=== PATIENT | male | born 1965 | race Hispanic/Latino ===

== ENCOUNTER 2018-02-09 16:53 | Emergency (ER) | payer OTHER ==
[2018-02-09] MEDS ORDERED: MECLIZINE HCL 12.5 MG TAB ONE (17:32)
[2018-02-09] MEDS ORDERED: ONDANSETRON 4 MG/2 ML VIAL ONE (17:32)
[2018-02-09 17:47] LABS: Absolute Lymphocytes (CBC) 1.6 K/uL (0.7-4.9); Absolute Monocytes 0.5 K/uL (0.1-1.3); Absolute Neutrophil 4.1 K/uL (1.8-8.0); Basophils % 0.4 % (0-1.3); Hematocrit 45.2 % (39.6-49.0); Lymphocytes % 24.8 % (15.3-44.8); MCH 32.6 pg (27.0-35.0); MCV 92.1 fL (80-100); MPV 10.3 fL (7.6-11.3); Monocytes % 7.4 % (3.3-12.3); RBC Red Blood Cell Count 4.91 M/uL (4.33-5.43)
[2018-02-09 17:50] LABS: Protime INR 0.95
--- NOTE | 2018-02-09 18:08 | RAD REPORT ---
EXAM DESCRIPTION: CT - Head Brain Wo Cont - 02/09/2018 5:57 pm CLINICAL HISTORY: dizziness,nausea Drowsiness COMPARISON: No comparisons TECHNIQUE: All CT scans are performed using dose optimization technique as appropriate and may inclu de automated exposure control or mA/KV adjustment according to patient size. FINDINGS: No intracranial hemorrhage, hydrocephalus or extra-axial fluid collection.No areas of brai n edema or evidence of midline shift. The paranasal sinuses and mastoids are clear. The calvarium is intact. IMPRESSION: No acute intracranial abnormality.
[2018-02-09 18:18] LABS: ALT/SGPT 38 U/L (12-78); AST/SGOT 29 U/L (15-37); Alkaline Phosphatase 93 U/L (45-117); BUN Blood Urea Nitrogen 14 mg/dL (7-18); Bicarbonate 24 mmol/L (21-32); Bilirubin Direct < 0.1 mg/dL (0-0.2); Bilirubin Total 0.3 mg/dL (0.2-1.0); Glucose Level 139 mg/dL (74-106); NT PRO-BNP 8 pg/mL (<125); Protein, Total 7.2 g/dL (6.4-8.2); Sodium Level 138 mmol/L (136-145); Troponin I < 0.02 ng/mL (0.0-0.045)
--- NOTE | 2018-02-09 19:01 | RAD REPORT ---
EXAM DESCRIPTION: RAD - Chest Single View - 02/09/2018 6:55 pm CLINICAL HISTORY: dizziness, nausea Chest pain. COMPARISON: No comparisons FINDINGS: Portable technique limits examination quality. The lungs are grossly clear. The heart is normal in size. No displaced fractures. IMPRESSION: No acute intrathoracic process suspected.
[2018-02-09] MEDS ORDERED: HYDROMORPHONE HCL 0.5 MG/0.5 ML INJ ONE (19:46)
[2018-02-09] MEDS ORDERED: MAGNESIUM SULFATE 1 gm IVPB 1 GM/100 ML BAG IV ONE (19:46)
[2018-02-09 20:29] LABS: Urine Blood TRACE (NEG); Urine Glucose NEGATIVE (NEG); Urine Protein NEGATIVE (NEG); Urine Specific Gravity 1.015 (1.005-1.030)
--- NOTE | 2018-02-09 20:44 | EDPHYS ---
Physician Documentation [facility] Name: Wyatt Sepulveda Age: 52 yrs Sex: Male : 1965 Arrival Date: 02/09/2018 Time: 17:00 Bed 14 Private MD: ED Physician Tracy Arceo HPI: 02/09 17:20 This 52 yrs old Male presents to ER via Ambulatory with complaints of cp Dizziness, Nausea. 17:20 The patient presents with dizziness, lightheadedness, feeling off balance. Onset: The cp symptoms/episode began/occurred 1 hour(s) ago. Associated signs and symptoms: Pertinent positives: headache, nausea, Pertinent negatives: abdominal pain, blurred vision, chest pain, focal weakness, numbness, shortness of breath, syncope, vomiting. Severity of symptoms: in the emergency department the symptoms are unchanged despite home interventions. Patient's baseline: Neuro: alert and fully oriented, Motor: no deficits, Ambulation: walks without assistance, Speech: normal. Historical: - Allergies: 17:04 No Known Allergies; aj1 - Home Meds: 17:04 blood pressure medicine [Active]; aj1 - PMHx: 17:04 Hypertension; aj1 - PSHx: 17:04 None; aj1 - Immunization history:: Flu vaccine is up to date. - Social history:: Smoking status: Patient/guardian denies using tobacco. - Ebola Screening: : Patient denies travel to an Ebola-affected area in the 21 days before illness onset. ROS: 17:22 Eyes: Negative for injury, pain, redness, and discharge. cp 17:22 Constitutional: Negative for body aches, chills, fever, poor PO intake. 17:22 ENT: Negative for drainage from ear(s), ear pain, sore throat, difficulty swallowing, difficulty handling secretions. 17:22 Cardiovascular: Negative for chest pain, edema, palpitations. 17:22 Respiratory: Negative for cough, shortness of breath, wheezing. 17:22 Abdomen/GI: Positive for nausea, Negative for abdominal pain, vomiting, diarrhea, constipation, anorexia, black/tarry stool, rectal bleeding. 17:22 Back: Negative for pain at rest, pain with movement, radiated pain. 17:22 : Negative for urinary symptoms. 17:22 Skin: Negative for cellulitis, rash. 17:22 Neuro: Positive for dizziness, headache, Negative for altered mental status, loss of consciousness, syncope, near syncope, weakness. 17:22 All other systems are negative. Exam: 17:25 Constitutional: The patient appears in no acute distress, alert, awake, cp non-diaphoretic, non-toxic, well developed, well nourished. 17:25 Head/Face: Normocephalic, atraumatic. Eyes: Pupils equal round and reactive to light, cp extra-ocular motions intact. Lids and lashes normal. Conjunctiva and sclera are non-icteric and not injected. Cornea within normal limits. Periorbital areas with no swelling, redness, or edema. ENT: Nares patent. No nasal discharge, no septal abnormalities noted. Tympanic membranes are normal and external auditory canals are clear. Oropharynx with no redness, swelling, or masses, exudates, or evidence of obstruction, uvula midline. Mucous membranes moist. Neck: Trachea midline, no thyromegaly or masses palpated, and no cervical lymphadenopathy. Supple, full range of motion without nuchal rigidity, or vertebral point tenderness. No Meningismus. Chest/axilla: Normal chest wall appearance and motion. Nontender with no deformity. No lesions are appreciated. 17:25 Cardiovascular: Rate: normal, Rhythm: regular, Heart sounds: murmur, not appreciated, Edema: is not appreciated, JVD: is not appreciated. 17:25 Respiratory: the patient does not display signs of respiratory distress, Respirations: normal, no use of accessory muscles, no retractions, no splinting, no tachypnea, labored breathing, is not present, Breath sounds: are clear throughout, no decreased breath sounds, no stridor, no wheezing. 17:25 Abdomen/GI: Inspection: abdomen appears normal, Bowel sounds: active, all quadrants, Palpation: abdomen is soft and non-tender, in all quadrants, rebound tenderness, is not appreciated, voluntary guarding, is not appreciated, involuntary guarding, is not appreciated. 17:25 Back: pain, is absent, ROM is normal. 17:25 Skin: cellulitis, is not appreciated, no rash present. 17:25 Neuro: Orientation: to person, place \T\ time. Mentation: is normal, Cerebellar function: is grossly normal, Motor: moves all fours, strength is normal, Sensation: is normal. 17:45 ECG was reviewed by the Attending Physician. cp Vital Signs: 17:04 BP 140 / 95; Pulse 80; Resp 18; Temp 97.7; Pulse Ox 98% on R/A; Weight 108.86 kg (R); aj1 Height 5 ft. 8 in. (172.72 cm) (R); Pain 0/10; 17:12 BP 142 / 82 LA Supine; Pulse 77; Resp 18; Pulse Ox 97% on R/A; hj 17:12 BP 132 / 89 Sitting; Pulse 72; Resp 18; Pulse Ox 98% on R/A; hj 17:12 BP 128 / 89 Standing; Pulse 81; Resp 18; Pulse Ox 99% on R/A; hj 18:06 BP 136 / 84; Pulse 74; Resp 18; Pulse Ox 100% on R/A; hj 18:49 BP 128 / 87; Pulse 67; Resp 18; Pulse Ox 100% on R/A; hj 19:20 BP 128 / 85; Pulse 71; Resp 18 S; Pulse Ox 97% on R/A; cc3 20:45 BP 131 / 96; Pulse 74; Resp 18 S; Pulse Ox 98% on R/A; cc3 17:04 Body Mass Index 36.49 (108.86 kg, 172.72 cm) aj1 MDM: 17:10 Patient medically screened. cp 17:30 Differential diagnosis: cardiac arrhythmia, generalized weakness, hypovolemia, cp idiopathic dizziness, vertigo. 20:42 Data reviewed: vital signs, nurses notes, lab test result(s), EKG, radiologic studies, cp CT scan, plain films. 20:42 Test interpretation: by ED physician or midlevel provider: ECG, plain radiologic cp studies. Counseling: I had a detailed discussion with the patient and/or guardian regarding: the historical points, exam findings, and any diagnostic results supporting the discharge/admit diagnosis, lab results, radiology results, to return to the emergency department if symptoms worsen or persist or if there are any questions or concerns that arise at home. Response to treatment: the patient's symptoms have markedly improved after treatment. ED course: VSS. Patient reports symptoms markedly improved. Will discharge to home for continued monitoring. 02/09 17:41 Order name: Basic Metabolic Panel; Complete Time: 19:06 EDMS 02/09 19:07 Interpretation: Normal except: GLUC 139; GFR 78; CA 8.1. 02/09 17:41 Order name: Liver (Hepatic) Function; Complete Time: 19:06 EDMS 02/09 19:27 Interpretation: Reviewed. 02/09 17:41 Order name: Troponin I; Complete Time: 19:06 EDMS 02/09 19:06 Interpretation: Within normal limits: TROP < 0.02. 02/09 17:41 Order name: NT PRO-BNP; Complete Time: 19:06 EDMS 02/09 19:27 Interpretation: Within normal limits: NT PRO-BNP 8. cp 02/09 17:41 Order name: Magnesium; Complete Time: 19:06 EDMS 02/09 19:28 Interpretation: MG 2.0; Reviewed. 02/09 17:41 Order name: CBC with Automated Diff; Complete Time: 19:06 EDMS 02/09 19:06 Interpretation: Reviewed. 02/09 17:41 Order name: Protime (+INR); Complete Time: 19:06 EDMS 02/09 17:20 Order name: Orthostatics; Complete Time: 17:21 02/09 17:20 Order name: EKG; Complete Time: 18:16 02/09 17:20 Order name: Cardiac monitoring; Complete Time: 17:21 02/09 17:20 Order name: EKG - Nurse/Tech; Complete Time: 17:32 02/09 17:20 Order name: IV Saline Lock; Complete Time: 17:32 02/09 17:20 Order name: Labs collected and sent; Complete Time: 17:32 02/09 17:20 Order name: O2 Per Protocol; Complete Time: 17:21 02/09 17:20 Order name: CT Head Brain wo Cont 02/09 17:41 Order name: Head Brain Wo Cont; Complete Time: 19:06 EDMS 02/09 19:07 Interpretation: Report reviewed. 02/09 17:41 Order name: Chest Single View; Complete Time: 19:06 EDMS 02/09 19:07 Interpretation: Report reviewed. 02/09 18:53 Order name: Urine Dipstick--Ancillary (enter results); Complete Time: 20:42 02/09 17:20 Order name: O2 Sat Monitoring; Complete Time: 17:21 cp EC:45 Rate is 64 beats/min. Rhythm is regular. VT interval is normal. QRS interval is normal. cp QT interval is normal. Interpreted by me. Reviewed by me. Administered Medications: 17:25 Drug: Meclizine 25 mg Route: PO; 18:34 Follow up: Response: No adverse reaction hj 17:30 Drug: Zofran 4 mg Route: IVP; Site: right antecubital; hj 18:34 Follow up: Response: No adverse reaction; Nausea is decreased 19:45 Drug: Magnesium Sulfate 1 grams Route: IVPB; Infused Over: 1 hrs; Site: right cc3 antecubital; 20:45 Follow up: Response: No adverse reaction; IV Status: Completed infusion; IV Intake: cc3 100ml 19:48 Not Given (Patient Refused): Dilaudid 0.5 mg IVP once cc3 Disposition: 02/09/18 20:43 Discharged to Home. Impression: Dizziness and giddiness, Nausea. - Condition is Stable. - Discharge Instructions: Dizziness, Nausea, Adult. - Prescriptions for Meclizine 25 mg Oral Tablet - take 1 tablet by ORAL route every 8 hours As needed; 30 tablet. Zofran 4 mg Oral Tablet - take 1 tablet by ORAL route every 12 hours As needed; 20 tablet. - Medication Reconciliation Form, Thank You Letter, Antibiotic Education, Prescription Opioid Use form. - Follow up: Private Physician; When: 1 - 2 days; Reason: Recheck today's complaints. - Problem is new. - Symptoms have improved. Addendum: 02/12/2018 06:04 Co-signature as Attending Physician, Tracy Arceo MD. m a2 Signatures: Dispatcher [employer] [facility] Stephanie Khoury RN RN aj1 Parker Morse RN RN hj Page, Corey, PA PA cp Alzahri, Mohammad, MD MD ma2 Radha Llanos cc3 Corrections: (The following items were deleted from the chart) 02/09 18:23 18:16 Chest Single View+RAD.RAD.BRZ ordered. EDMS EDMS 19:07 19:06 Normal except: GLUC 139; GFR 78. cp cp 20:24 18:16 BASIC METABOLIC PANEL+C.LAB.BRZ ordered. EDMS EDMS 20:24 18:16 CBC+H.LAB.BRZ ordered. EDMS EDMS 20:24 18:16 HEPATIC FUNCTION+C.LAB.BRZ ordered. EDTX EDMS 20:24 18:16 MAGNESIUM+C.LAB.BRZ ordered. EDTX EDMS 20:24 18:16 PROBNP+C.LAB.BRZ ordered. EDTX EDMS 20:24 18:16 PROTIME (+INR)+COAG.LAB.BRZ ordered. EDTX EDMS 20:24 18:16 TROPONIN (EMERG DEPT USE ONLY)+C.LAB.BRZ ordered. [facility] EDTX 21:00 20:43 02/09/2018 20:43 Discharged to Home. Impression: Dizziness and giddiness; Nausea. cc3 Condition is Stable. Forms are Medication Reconciliation Form, Thank You Letter, Antibiotic Education, Prescription Opioid Use. Follow up: Private Physician; When: 1 - 2 days; Reason: Recheck today's complaints. Problem is new. Symptoms have improved. cp
--- NOTE | 2018-02-09 20:44 | ER ---
Nurse's Notes [facility] Name: Wyatt Sepulveda Age: 52 yrs Sex: Male : 1965 Arrival Date: 02/09/2018 Time: 17:00 Bed 14 Private MD: Diagnosis: Dizziness and giddiness;Nausea Presentation: 02/09 17:02 Presenting complaint: Patient states: Dizziness and nausea for the past hour. Denies aj1 pain. Transition of care: patient was not received from another setting of care. Onset of symptoms was February 09, 2018 at 16:00. Risk Assessment: Do you want to hurt yourself or someone else? Patient reports no desire to harm self or others. Initial Sepsis Screen: Does the patient meet any 2 criteria? No. Patient's initial sepsis screen is negative. Does the patient have a suspected source of infection? No. Patient's initial sepsis screen is negative. Care prior to arrival: None. 17:02 Method Of Arrival: Ambulatory aj1 17:02 Acuity: CARRIE 3 aj1 Triage Assessment: 17:04 General: Appears in no apparent distress. comfortable, Behavior is calm, cooperative, aj1 appropriate for age. Pain: Denies pain. Neuro: Level of Consciousness is awake, alert, obeys commands, Reports dizziness. Cardiovascular: Patient's skin is warm and dry. Respiratory: Airway is patent Respiratory effort is even, unlabored, Respiratory pattern is regular, symmetrical. GI: Reports nausea. Historical: - Allergies: 17:04 No Known Allergies; aj1 - Home Meds: 17:04 blood pressure medicine [Active]; aj1 - PMHx: 17:04 Hypertension; aj1 - PSHx: 17:04 None; aj1 - Immunization history:: Flu vaccine is up to date. - Social history:: Smoking status: Patient/guardian denies using tobacco. - Ebola Screening: : Patient denies travel to an Ebola-affected area in the 21 days before illness onset. Screenin:06 Abuse screen: Denies threats or abuse. Denies injuries from another. Nutritional hj screening: No deficits noted. Tuberculosis screening: No symptoms or risk factors identified. Fall Risk None identified. Assessment: 17:06 General: Appears in no apparent distress. uncomfortable, Behavior is calm, cooperative, hj appropriate for age. Pain: Denies pain. Neuro: Level of Consciousness is awake, alert, obeys commands, Oriented to person, place, time, situation, Appropriate for age Reports dizziness. Cardiovascular: Capillary refill < 3 seconds Patient's skin is warm and dry. Respiratory: Airway is patent Respiratory effort is even, unlabored, Respiratory pattern is regular, symmetrical. GI: Reports nausea. GI: Abdomen is non-distended, Bowel sounds present X 4 quads. Abd is soft and non tender. : No signs and/or symptoms were reported regarding the genitourinary system. EENT: No signs and/or symptoms were reported regarding the EENT system. Derm: No signs and/or symptoms reported regarding the dermatologic system. Musculoskeletal: No signs and/or symptoms reported regarding the musculoskeletal system. 18:05 Reassessment: Patient and/or family updated on plan of care and expected duration. Pain hj level reassessed. Patient is alert, oriented x 3, equal unlabored respirations, skin warm/dry/pink. wheeled back from CT:. 18:33 Reassessment: Patient and/or family updated on plan of care and expected duration. Pain hj level reassessed. Patient is alert, oriented x 3, equal unlabored respirations, skin warm/dry/pink. provided urine sample;. 18:49 Reassessment: Patient and/or family updated on plan of care and expected duration. Pain hj level reassessed. Patient is alert, oriented x 3, equal unlabored respirations, skin warm/dry/pink. awaiting results and POC;. 19:15 Reassessment: Patient appears in no apparent distress at this time. Patient and/or cc3 family updated on plan of care and expected duration. Pain level reassessed. Patient is alert, oriented x 3, equal unlabored respirations, skin warm/dry/pink. Received this male patient from morning shift VARGAS Canales as a case of dizziness and nausea. With IV cannula gauge 20 at the right ACV saline locked. 20:55 Reassessment: Patient appears in no apparent distress at this time. Patient and/or cc3 family updated on plan of care and expected duration. Pain level reassessed. Patient is alert, oriented x 3, equal unlabored respirations, skin warm/dry/pink. TUTU Vaughan discharged the patient home with prescription given. IV cannula removed and patient left ER vitally stable and ambulatory with his . Vital Signs: 17:04 BP 140 / 95; Pulse 80; Resp 18; Temp 97.7; Pulse Ox 98% on R/A; Weight 108.86 kg (R); aj1 Height 5 ft. 8 in. (172.72 cm) (R); Pain 0/10; 17:12 BP 142 / 82 LA Supine; Pulse 77; Resp 18; Pulse Ox 97% on R/A; hj 17:12 BP 132 / 89 Sitting; Pulse 72; Resp 18; Pulse Ox 98% on R/A; hj 17:12 BP 128 / 89 Standing; Pulse 81; Resp 18; Pulse Ox 99% on R/A; hj 18:06 BP 136 / 84; Pulse 74; Resp 18; Pulse Ox 100% on R/A; hj 18:49 BP 128 / 87; Pulse 67; Resp 18; Pulse Ox 100% on R/A; hj 19:20 BP 128 / 85; Pulse 71; Resp 18 S; Pulse Ox 97% on R/A; cc3 20:45 BP 131 / 96; Pulse 74; Resp 18 S; Pulse Ox 98% on R/A; cc3 17:04 Body Mass Index 36.49 (108.86 kg, 172.72 cm) aj1 ED Course: 17:00 Patient arrived in ED. ds1 17:03 Triage completed. aj1 17:04 Arm band placed on Patient placed in an exam room. aj1 17:05 Parker Morse, RN is Primary Nurse. hj 17:06 Patient has correct armband on for positive identification. Placed in gown. Bed in low hj position. Call light in reach. Side rails up X 1. Adult w/ patient. 17:10 Isak Vaughan PA is PHCP. cp 17:10 Tracy Arceo MD is Attending Physician. cp 17:32 Initial lab(s) drawn, by vt, sent to lab. EKG done, reviewed by Isak CAM. Inserted hj saline lock: 20 gauge in right antecubital area, using aseptic technique. Blood collected. 17:57 CT completed. Patient moved to CT via wheelchair. Patient moved back from CT. cw1 17:58 Head Brain Wo Cont In Process Unspecified. EDMS 18:11 X-ray completed. Portable x-ray completed in exam room. Patient tolerated procedure kp1 well. 18:55 Chest Single View In Process Unspecified. EDMS 20:55 No provider procedures requiring assistance completed. IV discontinued, intact, cc3 bleeding controlled, No redness/swelling at site. Pressure dressing applied. Administered Medications: 17:25 Drug: Meclizine 25 mg Route: PO; hj 18:34 Follow up: Response: No adverse reaction hj 17:30 Drug: Zofran 4 mg Route: IVP; Site: right antecubital; hj 18:34 Follow up: Response: No adverse reaction; Nausea is decreased hj 19:45 Drug: Magnesium Sulfate 1 grams Route: IVPB; Infused Over: 1 hrs; Site: right cc3 antecubital; 20:45 Follow up: Response: No adverse reaction; IV Status: Completed infusion; IV Intake: cc3 100ml 19:48 Not Given (Patient Refused): Dilaudid 0.5 mg IVP once cc3 Intake: 20:45 IV: 100ml; Total: 100ml. cc3 Outcome: 20:43 Discharge ordered by MD. cp 20:55 Discharged to home ambulatory, with family. cc3 20:55 Condition: stable 20:55 Discharge instructions given to patient, family, Instructed on discharge instructions, follow up and referral plans. medication usage, Demonstrated understanding of instructions, follow-up care, medications, Prescriptions given X 2. 21:00 Patient left the ED. cc3 Signatures: Dispatcher [employer] [facility] Stephanie Khoury, VARGAS RN Jacquie Fermin ds1 Jodie Espinosa cw1 Parker Morse RN RN hj Page, Corey, PA PA cp Poole, Kathy kp1 Radha Llanos cc3
--- NOTE | 2018-02-10 06:17 | EKG ---
Test Date: 2018-02-09 Test Time: 17:37:30 Automatic Mounter: BERE MEASUREMENT RESULTS: Intervals: Rate: 64 FL: 178 QRSD: 88 QT: 378 QTc: 389 Sheldon: P: 55 FL: 178 QRS: 16 T: 32 INTERPRETIVE STATEMENTS: Normal sinus rhythm Normal ECG No previous ECG available for comparison Electronically Signed On 02-10-18 06:16:39 [employer] by Brenden Ward
== END 2018-02-09 21:00 | disposition home or self-care (01) ==
LOC: ER 16:53
DX: R11.0 Nausea (principal); I10 Essential (primary) hypertension
CPT/HCPCS: 36415; 70450; 71045; 80048; 80076; 81003; 83735; 83880; 84484; 85025; 85610; 93005; 96365; 96375; 99284; J1170; J2405; J3475

== ENCOUNTER 2020-06-16 14:34 | Emergency (ER) | payer OTHER ==
--- OUTSIDE RECORDS SUMMARY | 2020-06-16 14:36 | XMS REPORT | Continuity of Care Document ---
:1965 Author Organization [facility] t Address [address] [place] [address] Care Team Providers Name Role Phone Shahla MOISE Attending Clinician Doctor Unassigned, Name Attending Clinician Unavailable Monty MOISE, A Attending Clinician Problems This patient has no known problems. Allergies, Adverse Reactions, Alerts This patient has no known allergies or adverse reactions. Medications This patient has no known medications. Procedures This patient has no known procedures. Encounters Start End Encounter Admission Attending Care Care Encounter Source Date/Time Date/Time Type Type Clinicians Facility Department ID 2020-01-29 2020-01-29 [facility] TATUM Gale [id number] 14:33:00 23:59:00 Encounter Jered Cintron [id number] BUILDING [id number] 2020-01-29 2020-01-29 Orders Doctor ASHNATI [id number] 00:00:00 00:00:00 Only Unassigned, MANUEL [id number] [place] [facility] [id number] 2020-01-28 2020-01-28 Office VINICIO Millan [id number] 11:17:09 12:03:56 Visit [employer] [id number] [place] [id number] [employer] [id number] nal 044 Office Building One Results This patient has no known results.
[2020-06-16] MEDS ORDERED: KETOROLAC 30 MG/ML INJ ONE (15:39)
[2020-06-16] MEDS ORDERED: NA CHLORIDE 0.9% 1,000 ML ONE (15:39)
[2020-06-16] MEDS ORDERED: DIPHENHYDRAMINE 50 MG/ML VIAL ONE (15:39)
[2020-06-16] MEDS ORDERED: METOCLOPRAMIDE 10 MG/2mL INJ ONE (15:39)
--- NOTE | 2020-06-16 15:57 | RAD REPORT ---
EXAM DESCRIPTION: CT - Head Brain Wo Cont - 06/16/2020 3:40 pm CLINICAL HISTORY: PAIN Headache COMPARISON: Head Brain Wo Cont dated 02/09/2018 TECHNIQUE: All CT scans are performed using dose optimization technique as appropriate and may inclu de automated exposure control or mA/KV adjustment according to patient size. FINDINGS: There is a large left-sided subdural hematoma present measuring 20 millimeters in thicknes s.There is a combination of acute, subacute and chronic blood present within the hematoma.Significant [id number] midline shift is present of 13-14 mm. The paranasal sinuses and mastoids are clear. The calvarium is intact. IMPRESSION: Large left-sided subdural hematoma is present with 13-14 mm of [id number] midline maricruz ft. The findings were discussed with Dr Arceo in the ER on 06/16/2020 at 2:53 p.m. by telephone.
--- NOTE | 2020-06-16 16:12 | ER ---
Nurse's Notes [facility] Name: Wyatt Sepulveda Age: 54 yrs Sex: Male : 1965 Arrival Date: 06/16/2020 Time: 14:36 Bed 20 Private MD: Diagnosis: Nontraumatic subacute subdural hemorrhage Presentation: 06/16 14:41 Chief complaint: Patient states: Headaches x 2 - 3 weeks. Was prescribed Sumatriptan ca1 this morning and took 1 at 1300, no relief. Reports nausea with headache. Coronavirus screen: Client denies travel out of the [place] in the last 14 days. headache, nausea, Client presents with at least one sign or symptom that may indicate coronavirus-19. Standard/surgical mask placed on the client. Provider contacted for isolation considerations. Ebola Screen: Patient negative for fever greater than or equal to 101.5 degrees Fahrenheit, and additional compatible Ebola Virus Disease symptoms Patient denies exposure to infectious person. Patient denies travel to an Ebola-affected area in the 21 days before illness onset. No symptoms or risks identified at this time. Initial Sepsis Screen: Does the patient meet any 2 criteria? No. Patient's initial sepsis screen is negative. Does the patient have a suspected source of infection? No. Patient's initial sepsis screen is negative. Risk Assessment: Do you want to hurt yourself or someone else? Patient reports no desire to harm self or others. Onset of symptoms was June 16, 2020. 14:41 Method Of Arrival: Ambulatory ca1 14:41 Acuity: CARRIE 4 ca1 16:23 Acuity: CARRIE 2 iw Triage Assessment: 14:45 Headache History: The patient has had previous headaches and this one is similar to bp previous episodes. General: Appears in no apparent distress. uncomfortable, Behavior is cooperative, appropriate for age, anxious. Pain: Complains of pain in head Pain currently is 6 out of 10 on a pain scale. Pain began 3 WEEKS AGO Also complains of no other associated symptoms. EENT: No deficits noted. Neuro: Level of Consciousness is awake, alert, obeys commands, Oriented to Appropriate for age. Cardiovascular: No deficits noted. Respiratory: No deficits noted. GI: No signs and/or symptoms were reported involving the gastrointestinal system. : No signs and/or symptoms were reported regarding the genitourinary system. Derm: No deficits noted. Musculoskeletal: No deficits noted. Historical: - Allergies: 14:45 No Known Allergies; ca1 - PMHx: 14:45 Hypertension; ca1 - PSHx: 14:45 None; ca1 - Immunization history:: Flu vaccine is up to date. - Social history:: Smoking status: Patient denies any tobacco usage or history of. Patient/guardian denies using alcohol, street drugs, The patient lives with family. - Family history:: not pertinent. Screenin:45 Abuse screen: Denies threats or abuse. Denies injuries from another. Nutritional bp screening: No deficits noted. Tuberculosis screening: No symptoms or risk factors identified. Fall Risk None identified. Assessment: 14:45 General: SEE TRIAGE NOTE. Pain: Complains of pain in head. bp 15:35 Reassessment: No changes from previously documented assessment. Patient and/or family bp updated on plan of care and expected duration. Pain level reassessed. PT TO CT. 15:53 Reassessment: PT RETURNED FROM CT. bp 17:00 Reassessment: CT HEAD GROSSLY ABNORMAL, XFER IN PROCESS. Neuro: Level of Consciousness bp is awake, alert, obeys commands, Oriented to Appropriate for age. 18:00 Reassessment: No changes from previously documented assessment. TRANSFER ACCEPTED. bp TRANSPORT PENDING. 18:30 Reassessment: REPORT TO ALEXANDER KAYE FOR [facility]. bp 18:55 Reassessment: EMS AT B/S FOR TRANSPORT. PT CHARIS FOR [facility] [address] [place] [id number] BED 6. bp Vital Signs: 14:41 BP 146 / 92; Pulse 51; Resp 18 S; Temp 97.1(TE); Pulse Ox 98% on R/A; Weight 112.49 kg ca1 (R); Height 5 ft. 8 in. (172.72 cm) (R); Pain 9/10; 15:52 BP 157 / 78; Pulse 61; Resp 16; Pulse Ox 96% ; bp 17:00 BP 136 / 79; Pulse 53; Resp 17; Pulse Ox 95% ; bp 18:00 BP 122 / 83; Pulse 52; Resp 17; Pulse Ox 93% ; bp 14:41 Body Mass Index 37.71 (112.49 kg, 172.72 cm) [facility] [place] Coma Score: 16:07 Eye Response: spontaneous(4). Verbal Response: oriented(5). Motor Response: obeys ma2 commands(6). Total: 15. ED Course: 14:36 Patient arrived in ED. as 14:44 Triage completed. ca1 14:45 Arm band placed on right wrist. ca1 14:45 Patient has correct armband on for positive identification. Bed in low position. Call bp light in reach. Side rails up X2. 14:46 Tracy Arceo MD is Attending Physician. ma2 14:52 Oj Leiva, VARGAS is Primary Nurse. bp 15:35 Inserted saline lock: 20 gauge in right forearm, using aseptic technique. Blood bp collected. 15:40 Head Brain Wo Cont CT In Process Unspecified. EDMS 16:[address] [facility]. bd 18:06 pt accepted in transfer to [facility] by dr Riggs, admin approval given by rebecca vyas. Administered Medications: 15:35 Drug: NS 0.9% 1000 ml Route: IV; Rate: 1 bolus; Site: right forearm; bp 18:55 Follow up: IV Status: Completed infusion; IV Intake: 1000ml bp 15:35 Drug: Reglan 20 mg Route: IVP; Site: right forearm; bp 16:29 Follow up: Response: Pain is decreased bp 15:35 Drug: TORadol 30 mg Route: IVP; Site: right forearm; bp 16:29 Follow up: Response: Pain is decreased bp 15:35 Drug: Benadryl (diphenhydrAMINE) 25 mg Route: IVP; Site: right forearm; bp 16:30 Follow up: Response: Pain is decreased bp 16:15 Drug: Labetalol 10 mg Route: IVP; Site: right forearm; bp 16:31 Follow up: Response: No adverse reaction bp 16:45 Drug: D5-1/2 NS with KCl 10 mEq/L 1000 ml Route: IV; Rate: 100 ml/hr; Site: right bp forearm; 18:29 Follow up: IV Status: Infusion continued upon transfer bp Intake: 18:55 IV: 1000ml; Total: 1000ml. bp Outcome: 16:12 ER care complete, transfer ordered by . ma2 18:56 Patient left the ED. bp Signatures: Dispatcher [employer] EDMS Earnestine Gamino Amelia as Williams, Irene, RN RN iw Oj Leiva, RN RN bp Tracy Arceo MD MD ma2 Tatiana Day RN RN ca1
--- NOTE | 2020-06-16 16:12 | EDPHYS ---
Physician Documentation [facility] Name: Wyatt Sepulvead Age: 54 yrs Sex: Male : 1965 Arrival Date: 06/16/2020 Time: 14:36 Bed 20 Private MD: ED Physician Tracy Arceo HPI: 06/16 16:07 This 54 yrs old Male presents to ER via Ambulatory with complaints of Headache.ma2 16:07 The patient complains of pain to the forehead and left base of the skull. Onset: The ma2 symptoms/episode began/occurred gradually, 3 week(s) ago. Severity of symptoms: At its worst the pain was moderate, in the emergency department the pain is unchanged. Headache History: Denies prior headaches. The patient has not experienced similar symptoms in the past. Historical: - Allergies: 14:45 No Known Allergies; ca1 - PMHx: 14:45 Hypertension; ca1 - PSHx: 14:45 None; ca1 - Immunization history:: Flu vaccine is up to date. - Social history:: Smoking status: Patient denies any tobacco usage or history of. Patient/guardian denies using alcohol, street drugs, The patient lives with family. - Family history:: not pertinent. ROS: 16:07 Constitutional: Negative for fever, chills, and weight loss. ma2 16:07 All other systems are negative. Exam: 16:07 Constitutional: This is a well developed, well nourished patient who is awake, alert, ma2 and in no acute distress. Head/Face: Normocephalic, atraumatic. Eyes: Pupils equal round and reactive to light, extra-ocular motions intact. Lids and lashes normal. Conjunctiva and sclera are non-icteric and not injected. Cornea within normal limits. Periorbital areas with no swelling, redness, or edema. ENT: Nares patent. No nasal discharge, no septal abnormalities noted. Tympanic membranes are normal and external auditory canals are clear. Oropharynx with no redness, swelling, or masses, exudates, or evidence of obstruction, uvula midline. Mucous membranes moist. Neck: Trachea midline, no thyromegaly or masses palpated, and no cervical lymphadenopathy. Supple, full range of motion without nuchal rigidity, or vertebral point tenderness. No Meningismus. Chest/axilla: Normal chest wall appearance and motion. Nontender with no deformity. No lesions are appreciated. Cardiovascular: Regular rate and rhythm with a normal S1 and S2. No gallops, murmurs, or rubs. Normal PMI, no JVD. No pulse deficits. Respiratory: Lungs have equal breath sounds bilaterally, clear to auscultation and percussion. No rales, rhonchi or wheezes noted. No increased work of breathing, no retractions or nasal flaring. Abdomen/GI: Soft, non-tender, with normal bowel sounds. No distension or tympany. No guarding or rebound. No evidence of tenderness throughout. MS/ Extremity: Pulses equal, no cyanosis. Neurovascular intact. Full, normal range of motion. Neuro: Awake and alert, GCS 15, oriented to person, place, time, and situation. Cranial nerves II-XII grossly intact. Motor strength 5/5 in all extremities. Sensory grossly intact. Cerebellar exam normal. Normal gait. Vital Signs: 14:41 BP 146 / 92; Pulse 51; Resp 18 S; Temp 97.1(TE); Pulse Ox 98% on R/A; Weight 112.49 kg ca1 (R); Height 5 ft. 8 in. (172.72 cm) (R); Pain 9/10; 15:52 BP 157 / 78; Pulse 61; Resp 16; Pulse Ox 96% ; bp 17:00 BP 136 / 79; Pulse 53; Resp 17; Pulse Ox 95% ; bp 18:00 BP 122 / 83; Pulse 52; Resp 17; Pulse Ox 93% ; bp 14:41 Body Mass Index 37.71 (112.49 kg, 172.72 cm) ca1 [place] Coma Score: 16:07 Eye Response: spontaneous(4). Verbal Response: oriented(5). Motor Response: obeys ma2 commands(6). Total: 15. MDM: 14:46 Patient medically screened. ma2 16:07 Differential diagnosis: cerebral vascular accident, epidural hematoma, hyponatremia, ma2 migraine, subarachnoid bleed, subdural hematoma. Data reviewed: vital signs, nurses notes. Counseling: I had a detailed discussion with the patient and/or guardian regarding: the historical points, exam findings, and any diagnostic results supporting the discharge/admit diagnosis, the presence of at least one elevated blood pressure reading (>120/80) during this emergency department visit. Response to treatment: the patient's symptoms have mildly improved after treatment. 16:09 ED course: patient has subdural hematoma, will transfer for higher level of care as no ma2 neurosurgeon available in our hospital. 06/16 15:07 Order name: CBC with Diff; Complete Time: 16:37 ma2 06/16 15:07 Order name: CMP; Complete Time: 16:17 ma2 06/16 16:19 Order name: PT-INR ma2 06/16 16:19 Order name: Ptt, Activated ma2 06/16 15:07 Order name: Head Brain Wo Cont CT; Complete Time: 16:00 ma2 06/16 16:19 Order name: Protime (+INR) EDMS 06/16 16:19 Order name: PTT, Activated Partial Thromb EDMS 06/16 18:02 Order name: SARS-COV-2 RT PCR EDMS 06/16 16:27 Order name: NPO; Complete Time: 18:24 ma2 Administered Medications: 15:35 Drug: NS 0.9% 1000 ml Route: IV; Rate: 1 bolus; Site: right forearm; bp 18:55 Follow up: IV Status: Completed infusion; IV Intake: 1000ml bp 15:35 Drug: Reglan 20 mg Route: IVP; Site: right forearm; bp 16:29 Follow up: Response: Pain is decreased bp 15:35 Drug: TORadol 30 mg Route: IVP; Site: right forearm; bp 16:29 Follow up: Response: Pain is decreased bp 15:35 Drug: Benadryl (diphenhydrAMINE) 25 mg Route: IVP; Site: right forearm; bp 16:30 Follow up: Response: Pain is decreased bp 16:15 Drug: Labetalol 10 mg Route: IVP; Site: right forearm; bp 16:31 Follow up: Response: No adverse reaction bp 16:45 Drug: D5-1/2 NS with KCl 10 mEq/L 1000 ml Route: IV; Rate: 100 ml/hr; Site: right bp forearm; 18:29 Follow up: IV Status: Infusion continued upon transfer bp Disposition: 06/16/20 16:[address] [facility]. Diagnosis is Nontraumatic subacute subdural hemorrhage. - Reason for transfer: Higher level of care. - Accepting physician is Dr. Regan TELLO. - Condition is Stable. - Problem is new. - Symptoms are unchanged. Signatures: Dispatcher [employer] EDOj Harrison, RN RN bp Tracy Arceo MD MD ma2 Tatiana Day RN RN ca1 Corrections: (The following items were deleted from the chart) 17:07 15:53 CORONAVIRUS+MR.LAB.BRZ ordered. EDMS EDMS 18:56 16:12 06/16/2020 16:[address] [facility]. bp Diagnosis is Nontraumatic subacute subdural hemorrhage. Reason for transfer: Higher level of care. Accepting physician is Dr. Regan TELLO. Condition is Stable. Problem is new. Symptoms are unchanged. ma2
[2020-06-16 16:14] LABS: Absolute Lymphocytes (CBC) 1.5 K/uL (0.7-4.9); Basophils % 0.7 % (0-1.3); Lymphocytes % 27.4 % (15.3-44.8); MPV 10.7 fL (7.6-11.3)
[2020-06-16 16:15] LABS: Albumin 4.1 g/dL (3.4-5.0); Bilirubin Total 0.3 mg/dL (0.2-1.0); Potassium 4.2 mmol/L (3.5-5.1); Protein, Total 7.4 g/dL (6.4-8.2)
[2020-06-16] MEDS ORDERED: LABETALOL 20 MG/4ML SYRINGE IV ONE (16:29)
[2020-06-16] MEDS ORDERED: D5.45NS W/KCL 20MEQ 1,000 ML IV ONE (16:54)
[2020-06-16 17:20] LABS: Protime INR 1.01
[2020-06-16 20:41] VITALS: TEMP 97.1
[2020-06-20 12:46] VITALS: BP 122/83; O2SAT 93
== END 2020-06-16 18:56 | disposition short-term general hospital (02) ==
LOC: ER 14:34
DX: I62.02 Nontraumatic subacute subdural hemorrhage (principal); I10 Essential (primary) hypertension; Z20.822 Contact with and (suspected) exposure to COVID-19
CPT/HCPCS: 85025; 36415; 85610; 85730; 80053; 70450; U0003; J2765; J1200; J7030; 96361; 96374; 96375; 99284

== ENCOUNTER 2020-06-24 11:56 | Emergency (ER) | payer OTHER ==
--- OUTSIDE RECORDS SUMMARY | 2020-06-24 12:01 | XMS REPORT | Continuity of Care Document ---
:1965 Author Organization [facility] t Address [address] [place] [address] Care Team Providers Name Role Phone Pcp Primary Care Physician Unavailable Oneil MOISE Attending Clinician Shelley OMISE, In Attending Clinician Hermelindo MOISE Attending Clinician Gómez Bagley MD Attending Clinician [place] [facility] Attending Clinician ONEIL Attending Clinician Unavailable Shahla MOISE Attending Clinician Doctor Unassigned, Name Attending Clinician Unavailable Monty MOISE, Corinne Attending Clinician ONEIL Admitting Clinician Unavailable Payers Payer Name Policy Type Policy Effective Date Expiration Date [facility] Number AMBETTERAMBETTER [id number] [id number] 00:00:00 - Medical /2020-Present Center Problems Condition Condition Condition Status Onset Resolution Last Treating Co mments Source Name Details Category Date Date Treatment Clinician Date Subdural Subdural Disease Active Overview: [facility] hematoma hematoma 3- Added Mami - 00:00: automatic Medical 00 ally from Center request for surgery [id number] Allergies, Adverse Reactions, Alerts This patient has no known allergies or adverse reactions. Social History Social Habit Start Date Stop Date Quantity Comments Source Sex Assigned At [facility] Exposure to Not sure [facility] - SARS-CoV-2 (event) [place] Alcohol intake 2020-06-23 2020-06-23 Ex-drinker [facility] - 00:00:00 00:00:00 (finding) Medical Center Tobacco use and 2020-06-23 2020-06-[address] [facility] [address] [facility] - exposure 00:00:00 00:00:00 Medical Center History [facility] 2020-06-17 2020-06-[address] [facility] - Alcohol Frequency 00:00:00 00:00:00 Medical Center History [facility] 2020-06-17 2020-06-[address] [facility] - Alcohol Std Drinks 00:00:00 00:00:00 Medica l Center History [facility] 2020-06-17 2020-06-[address] [facility] - Alcohol Binge 00:00:00 00:00:[address] Smoking Status Start Date Stop Date Source Never smoker [facility] kes - M edical Center Medications Ordered Filled Start Stop Current Ordering Indication Dosage Frequency Signature Comments Components Source Medication Medication Date Date Medication? Clinician (SIG) Name Name HYDROcodone 2020- Yes 1{tbl} Take [address] -acetaminop 06-21 tablet by Kim adan (NORCO 00:00: 23:59 mouth Medic al 5-325) 00 :00 every 8 Center 5-325 mg (eight) per tablet hours as needed for Pain for up to 6 days. Max Daily Amount: 3 tablets ibuprofen 2020- No headache 800mg Take [address] (ADVIL,MOTR 06-09 disorder mg by Kim MAJANO) 800 MG 00:00: 00:00 mouth Medic al tablet 00 :00 every 6 Center (six) hours as needed for Pain For headaches, took for two days every 6 hours only. Per [employer] Stephanie Jack . lisinopriL 2019-03 Yes 20mg QD Take [address] (PRINIVIL,Z 03-29 by mouth [facility] - ESTRIL) 20 00:00: daily. Medic al MG tablet 00 Center Vital Signs Vital Name Observation Time Observation Value Comments Source Systolic blood 2020-06-21 08:51:00 123 mm[Hg] [facility] - pressure [facility] Diastolic blood 2020-06-21 08:51:00 76 mm[Hg] [facility] Heart rate 2020-06-21 08:51:00 89 /min [facility] Body temperature 2020-06-21 08:51:00 36.56 Susan [facility] Respiratory rate 2020-06-21 08:51:00 20 /min [facility] Oxygen saturation in 2020-06-21 08:51:00 100 /min [facility] - Arterial blood by Medical Ce nter Pulse oximetry Body height 2020-06-20 23:10:00 172.7 cm [facility] Body weight 2020-06-20 23:10:00 107.14 kg [facility] BMI 2020-06-20 23:10:00 35.92 kg/m2 [facility] Procedures Procedure Date / Time Performed Performing Clinician [facility] e CT BRAIN WITHOUT IV 2020-06-21 10:11:00 Chris Rosa In [facility] BASIC METABOLIC PANEL 2020-06-21 05:07:00 Figueroa Daniels [address] MAGNESIUM 2020-06-21 05:07:00 Figueroa Daniels [facility] PHOSPHORUS 2020-06-21 05:07:00 Figueroa Daniels [facility] CBC W/PLT COUNT & AUTO 2020-06-21 05:06:00 Figueroa Daniels [facility] BASIC METABOLIC PANEL 2020-06-20 03:52:00 Figueroa Daniels [address] CBC W/PLT COUNT & AUTO 2020-06-20 03:52:00 Figueroa Daniels [facility] MAGNESIUM 2020-06-20 03:52:00 Figueroa Daniels [facility] PHOSPHORUS 2020-06-20 03:52:00 Fgiueroa Daniels [facility] CBC W/PLT COUNT & AUTO 2020-06-19 04:12:00 Figueroa Daniels [facility] BASIC METABOLIC PANEL 2020-06-19 03:33:00 Figueroa Daniels [facility] [address] MAGNESIUM 2020-06-19 03:33:00 Figueroa Daniels [facility] PHOSPHORUS 2020-06-19 03:33:00 Figueroa Daniels [facility] CT BRAIN WITHOUT IV 2020-06-18 04:12:[address] [facility] BASIC METABOLIC PANEL 2020-06-18 03:48:00 Figueroa Daniels [facility] [address] CBC W/PLT COUNT & AUTO 2020-06-18 03:48:00 Figueroa Daniels [facility] MAGNESIUM 2020-06-18 03:48:00 Figueroa Daniels [facility] PHOSPHORUS 2020-06-18 03:48:00 Figueroa Daniels [facility] CRANIECTOMY/ 2020-06-17 07:33:00 Odilon Casarez [facility] - CRANIOTOMY,EVACUATION Medical Ce nter HEMATOMA CT BRAIN WITHOUT IV 2020-06-17 04:28:[address] [facility] BASIC METABOLIC PANEL 2020-06-17 03:47:00 Figueroa Daniels [facility] I [address] CBC W/PLT COUNT & AUTO 2020-06-17 03:47:00 Figueroa Daniels [facility] MAGNESIUM 2020-06-17 03:47:00 Figueroa Daniels [facility] PHOSPHORUS 2020-06-17 03:47:00 Figueroa Daniels [facility] LIPID PANEL 2020-06-17 03:47:00 [facility] TSH/FREE T4 IF INDICATED 2020-06-17 03:47:00 [facility] TR[facility]ONIN I 2020-06-17 [facility] 2020-06-16 21:51:00 Marlena Soto [facility] SARS-COV2/RT-PCR ([facility] & 2020-06-16 21:17:00 [facility] BASIC METABOLIC PANEL 2020-06-16 21:16:00 [facility] CBC W/PLT COUNT & AUTO 2020-06-16 21:16:00 Amelia Reyes I [facility] DIFFERENTIAL [facility] MAGNESIUM 2020-06-16 21:16:00 Eric [facility] PHOSPHORUS 2020-06-16 21:16:00 [place] [facility] PROTHROMBIN TIME/INR 2020-06-16 21:16:00 [place] [facility] APTT 2020-06-16 21:16:00 Eric [facility] FIBRINOGEN 2020-06-16 21:16:00 Eric [facility] TYPE AND SCREEN, 2020-06-16 21:16:00 [place] [facility] AUTOMATED [facility] Center ECG 12-LEAD 2020-06-16 21:15:02 [facility] XR CHEST 1 VIEW 2020-06-16 20:38:00 [place] [facility] PORTABLE/BEDSIDE Medical Center Plan of Care Planned Activity Planned Date Details Comments Source Future Scheduled 2023-06-[address] [facility] Test 00:00:00 (procedure) [code = [facility] Center 20753913] Future Scheduled 2020-11-[address] [facility] - Test 00:00:00 (Season Ended) [code Medical Center = INFLUENZA VACCINE (Season Ended)] Future Scheduled 2015-12-30 SHINGLES VACCINES ([address] [facility] - Test 00:00:00 of 2) [code = Medical Center SHINGLES VACCINES (1 of 2)] Future Scheduled 1984 DTAP/TDAP/TD [facility] - Test 00:00:00 VACCINES (1 - Tdap) Medical Center [code = DTAP/TDAP/TD VACCINES (1 - Tdap)] Future Scheduled 1983-12-30 HEPATITIS C ODILON Farooq s - Test 00:00:00 SCREENING [code = Medical Ce nter HEPATITIS C SCREENING] Future Scheduled 1965 Screening for ODILON Barnett es - Test 00:00:00 malignant neoplasm Medical C enter of colon (procedure) [code = 358044410] Encounters Start End Encounter Admission Attending Care Care Encounter Source Date/Time Date/Time Type Type Clinicians Facility Department ID 2020-01-29 2020-01-29 [facility] TATUM Gale [id number] 14:33:00 23:59:00 Encounter Jered Cintron [id number] BUILDING [id number] [id number] 2020-01-29 2020-01-29 Orders Doctor ASHANTI [id number] 00:00:00 00:00:00 Only Unassigned, MANUEL [id number] [place] [facility] [id number] 2020-01-28 2020-01-28 Office [facility] [id number] 11:17:09 12:03:56 Visit Mobile Pulse A Alianza [id number] [place] 4.2.7.2.686 [place] [id number] nal 044 Office Building One Results Test Description Test Time Test Comments Results Result [facility] e Comments CT, BRAIN, 2020-06-21 Unlisted WITHOUT CONTRAST 10:26:00 Reason for Exam - Click Yes and Enter ODILON OMALLEY - Reason [facility]: Below->STEVEN Munguia Reason : 1965 for Exam->SDH Sex: follow up M imaging FINAL REPORT CT, BRAIN, WITHOUT CONTRAST CLINICAL INDICATION: Subdural hemorrhage, follow-upSDH follow up imaging COMPARISON: June 18, 2020 TECHNIQUE: Noncontrast axial CT imaging of the brain and skull. DOSE REDUCTION: Dose modulation, iterative reconstruction, and/or weight-based adjustment of the mA/kV was utilized to reduce the radiation dose to as low as reasonably achievable. FINDINGS:Status post left frontal parietal craniotomy for drainage of subdural hematoma. Subdural drain has been removed in the interim. Residual left cerebral convexity mixed density hematoma and pneumocephalus is not significantly changed in thickness, measuring up to 2.2 cm. Contralateral mixed density right cerebral convexity extra-axial hematoma is similarly unchanged, measuring up to 6 mm. Midline shift is not significantly changed in the interim given differences in angulation and technique, approximately 6 mm rightward midline shift. No herniation. Mild effacement of the left lateral ventricle is unchanged. No hydrocephalus. Orbits are within normal limits. No obstructive paranasal sinus disease. IMPRESSION: Interval removal of left subdural drain. Otherwise, no significant interval change in bilateral cerebral convexity mixed density subdural hematomas and mild consequent rightward midline shift. If there is persistent clinical concern for intracranial pathology, MR examination is recommended for further characterization. Signed: Macho Deng MDReport Verified Date/Time: 06/21/2020 10:26:18 Reading Location: [address] Neuro Reading Room brain without 2020-06-21 Interface, External [facility] IV contrast 10:26:00 Ris In - 06/21/2020 - Mo dical 10:[address] [facility] [facility], BRAIN, WITHOUT CONTRAST CLINICAL INDICATION: Subdural hemorrhage, follow-upSDH follow up imaging COMPARISON: June 18, 2020 TECHNIQUE: Noncontrast axial CT imaging of the brain and skull. DOSE REDUCTION: Dose modulation, iterative reconstruction, and/or weight-based adjustment of the mA/kV was utilized to reduce the radiation dose to as low as reasonably achievable. FINDINGS:Status post left frontal parietal craniotomy for drainage of subdural hematoma. Subdural drain has been removed in the interim. Residual left cerebral convexity mixed density hematoma and pneumocephalus is not significantly changed in thickness, measuring up to 2.2 cm. Contralateral mixed density right cerebral convexity extra-axial hematoma is similarly unchanged, measuring up to 6 mm. Midline shift is not significantly changed in the interim given differences in angulation and technique, approximately 6 mm rightward midline shift. No herniation. Mild effacement of the left lateral ventricle is unchanged. No hydrocephalus. Orbits are within normal limits. No obstructive paranasal sinus disease. IMPRESSION: Interval removal of left subdural drain. Otherwise, no significant interval change in bilateral cerebral convexity mixed density subdural hematomas and mild consequent rightward midline shift. If there is persistent clinical concern for intracranial pathology, MR examination is recommended for further characterization. Signed: Macho Dengort Verified Date/Time: 06/21/2020 10:26:18 Reading Location: [address] Neuro Reading Room Basic Metabolic Panel 2020-06-21 06:08:00 Test Item Value Reference Range Interpretation Comme nts Sodium (test code = 2951-2) 134 meq/L 136-145 L Potassium (test code = 4.0 meq/L 3.5-5.1 2823-3) Chloride (test code = 99 meq/L 98-107 2075-0) CO2 (test code = 2027-9) 25 meq/L 22-29 BUN (test code = 3094-0) 14 mg/dL 7-21 Creatinine (test code = 0.99 mg/dL 0.57-1.25 2160-0) Glucose (test code = 107 mg/dL 70-105 H 2345-7) Calcium (test code = 9.4 mg/dL 8.4-10.2 18792-5) EGFR (test code = 91251-5) 79 mL/min/1.73 sq m ESTIMATED GFR IS NOT ACCURATE CREATININE ARMEN REBOLLEDO IN PREDICTING GLOMERULAR FILT RATION RATE. ESTIMATED GFR IS NOT APPLICABLE FOR DIALYSIS PATIEN TS. SUGEY (test code = SUGEY) Operations And Maintenance Technican ID - DB Lab Interpretation (test Abnormal code = 69232-7) [facility]00 Test Item Value Reference Range Interpretation Comments Magnesium (test code = 2.0 mg/dL 1.6-2.6 54680-5) SUGEY (test code = SUGEY) Operations And Maintenance Technican ID - DB Lab Interpretation (test Normal code = 98990-4) [facility]00 Test Item Value Reference Range Interpretation Comments Phosphorus (test code = 3.8 mg/dL 2.3-4.7 2777-1) SUGEY (test code = SUGEY) Operations And Maintenance Technican ID - DB Lab Interpretation (test Normal code = 05298-9) [facility] [id number] 06:08:00 Test Item Value Reference Range Interpretation Comments SODIUM (BEAKER) 134 meq/L 136-145 L (test code = 381) POTASSIUM (BEAKER) 4.0 meq/L 3.5-5.1 (test code = 379) CHLORIDE (BEAKER) 99 meq/L 98-107 (test code = 382) CO2 (BEAKER) (test 25 meq/L 22-29 code = 355) BLOOD UREA NITROGEN 14 mg/dL 7-21 (BEAKER) (test code = 354) CREATININE (BEAKER) 0.99 mg/dL 0.57-1.25 (test code = 358) GLUCOSE RANDOM 107 mg/dL 70-105 H (BEAKER) (test code = 652) CALCIUM (BEAKER) 9.4 mg/dL 8.4-10.2 (test code = 697) EGFR (BEAKER) (test 79 mL/min/1.73 ESTIMA UBALDO GFR IS code = 1092) sq m NOT ACCURATE CREATININE CLEARANCE IN PREDICTING GLOMERULAR FILTRATION RATE . ESTIMATED GFR I S NOT APPLICABLE FOR DIALYSIS PATIEN TS. Operations And Maintenance Technican ID - [id number] 06:08:00 Test Item Value Reference Range Interpretation Comments MAGNESIUM (BEAKER) (test code = 2.0 mg/dL 1.6-2.6 627) Operations And Maintenance Technican ID - [id number] 06:08:00 Test Item Value Reference Range Interpretation Comments PHOSPHORUS (BEAKER) (test code = 3.8 mg/dL 2.3-4.7 604) Operations And Maintenance Technican ID - DBCBC with platelet count + automated [id number] 05:37:00 Test Item Value Reference Range Interpretation Comments WBC (test code = 6690-2) 7.9 See_Comment [A utomated message] The system [employer] generated this result transmitted ref erence range: 3.5 - 10 .5 K/L. The refe rence range was not u sed to interpret this result as normal/abnor mal. RBC (test code = 789-8) 4.60 See_Comment L [Au tomated message] The system [employer] generated this result transmitted ref erence range: 4.63 - 6 .08 M/L. The refe rence range was not u sed to interpret this result as normal/abnor mal. MCHC (test code = 786-4) 34.4 See_Comment [A utomated message] The system [employer] generated this result transmitted ref erence range: 32.3 - 3 6.5 GM/DL. The refe rence range was not u sed to interpret this result as normal/abnor mal. Hematocrit (test code = 42.1 % 40.1-51 4544-3) MCV (test code = 787-2) 91.5 fL 79-92.2 MCH (test code = 785-6) 31.5 pg 25.7-32.2 RDW (test code = 788-0) 12.9 % 11.6-14.4 Platelets (test code = 196 See_Comment [Aut omated message] 777-3) The system [employer] generated this result transmitted ref erence range: 150 - 45 0 K/CU MM. The referen ce range was not u sed to interpret this result as normal/abnor mal. MPV (test code = 11.8 fL 9.4-12.4 64830-8) nRBC (test code = 413) 0 See_Comment [Aut omated message] The system [employer] generated this result transmitted ref erence range: 0 - 0 /1 00 WBC. The refere nce range was not u sed to interpret this result as normal/abnor mal. % Neutros (test code = 60 % 429) % Lymphs (test code = 28 % 430) % Monos (test code = 8 % 431) % Eos (test code = 432) 2 % % Baso (test code = 437) 1 % # Neutros (test code = 4.74 See_Comment [Aut omated message] 670) The system [employer] generated this result transmitted ref erence range: 1.78 - 5 .38 K/L. The refe rence range was not u sed to interpret this result as normal/abnor mal. # Lymphs (test code = 2.20 See_Comment [Auto mated message] 414) The system [employer] generated this result transmitted ref erence range: 1.32 - 3 .57 K/L. The refe rence range was not u sed to interpret this result as normal/abnor mal. # Monos (test code = 0.66 See_Comment [Autom ated message] 415) The system [employer] generated this result transmitted ref erence range: 0.30 - 0 .82 K/L. The refe rence range was not u sed to interpret this result as normal/abnor mal. # Eos (test code = 416) 0.18 See_Comment [Au tomated message] The system [employer] generated this result transmitted ref erence range: 0.04 - 0 .54 K/L. The refe rence range was not u sed to interpret this result as normal/abnor mal. # Baso (test code = 417) 0.05 See_Comment [A utomated message] The system [employer] generated this result transmitted ref erence range: 0.01 - 0 .08 K/L. The refe rence range was not u sed to interpret this result as normal/abnor mal. Immature 0 % 0-1 Granulocytes-Relative (test code = 2801) Lab Interpretation (test Abnormal code = 86742-1) [facility] W/PLT COUNT & AUTO [id number] 05:37:00 Test Item Value Reference Range Interpretation Comments WHITE BLOOD CELL COUNT (BEAKER) 7.9 K/ L 3.5-10.5 (test code = 775) RED BLOOD CELL COUNT (BEAKER) 4.60 M/ L 4.63-6.08 L (test code = 761) HEMOGLOBIN (BEAKER) (test code = 14.5 GM/DL 13.7-17.5 410) HEMATOCRIT (BEAKER) (test code = 42.1 % 40.1-51.0 411) MEAN CORPUSCULAR VOLUME (BEAKER) 91.5 fL 79.0-92.2 (test code = 753) MEAN CORPUSCULAR HEMOGLOBIN 31.5 pg 25.7-32.2 (BEAKER) (test code = 751) MEAN CORPUSCULAR HEMOGLOBIN CONC 34.4 GM/DL 32.3-36.5 (BEAKER) (test code = 752) RED CELL DISTRIBUTION WIDTH 12.9 % 11.6-14.4 (BEAKER) (test code = 412) PLATELET COUNT (BEAKER) (test 196 K/CU MM 150-450 code = 756) MEAN PLATELET VOLUME (BEAKER) 11.8 fL 9.4-12.4 (test code = 754) NUCLEATED RED BLOOD CELLS 0 /100 WBC 0-0 (BEAKER) (test code = 413) NEUTROPHILS RELATIVE PERCENT 60 % (BEAKER) (test code = 429) LYMPHOCYTES RELATIVE PERCENT 28 % (BEAKER) (test code = 430) MONOCYTES RELATIVE PERCENT 8 % (BEAKER) (test code = 431) EOSINOPHILS RELATIVE PERCENT 2 % (BEAKER) (test code = 432) BASOPHILS RELATIVE PERCENT 1 % (BEAKER) (test code = 437) NEUTROPHILS ABSOLUTE COUNT 4.74 K/ L 1.78-5.38 (BEAKER) (test code = 670) LYMPHOCYTES ABSOLUTE COUNT 2.20 K/ L 1.32-3.57 (BEAKER) (test code = 414) MONOCYTES ABSOLUTE COUNT (BEAKER) 0.66 K/ L 0.30-0.82 (test code = 415) EOSINOPHILS ABSOLUTE COUNT 0.18 K/ L 0.04-0.54 (BEAKER) (test code = 416) BASOPHILS ABSOLUTE COUNT (BEAKER) 0.05 K/ L 0.01-0.08 (test code = 417) IMMATURE GRANULOCYTES-RELATIVE 0 % 0-1 PERCENT (BEAKER) (test code = 2801) BASIC METABOLIC [id number] 04:37:00 Test Item Value Reference Range Interpretation Comments SODIUM (BEAKER) 135 meq/L 136-145 L (test code = 381) POTASSIUM (BEAKER) 4.0 meq/L 3.5-5.1 (test code = 379) CHLORIDE (BEAKER) 100 meq/L 98-107 (test code = 382) CO2 (BEAKER) (test 25 meq/L 22-29 code = 355) BLOOD UREA NITROGEN 15 mg/dL 7-21 (BEAKER) (test code = 354) CREATININE (BEAKER) 0.94 mg/dL 0.57-1.25 (test code = 358) GLUCOSE RANDOM 108 mg/dL 70-105 H (BEAKER) (test code = 652) CALCIUM (BEAKER) 9.1 mg/dL 8.4-10.2 (test code = 697) EGFR (BEAKER) (test 84 mL/min/1.73 ESTIMA UBALDO GFR IS code = 1092) sq m NOT ACCURATE CREATININE CLEARANCE IN PREDICTING GLOMERULAR FILTRATION RATE . ESTIMATED GFR I S NOT APPLICABLE FOR DIALYSIS PATIEN TS. Operations And Maintenance Technican ID - [id number] 04:37:00 Test Item Value Reference Range Interpretation Comments MAGNESIUM (BEAKER) (test code = 2.1 mg/dL 1.6-2.6 627) Operations And Maintenance Technican ID - [id number] 04:37:00 Test Item Value Reference Range Interpretation Comments PHOSPHORUS (BEAKER) (test code = 3.7 mg/dL 2.3-4.7 604) Operations And Maintenance Technican ID - EDASICBC W/PLT COUNT & AUTO [id number] 04:25:00 Test Item Value Reference Range Interpretation Comments WHITE BLOOD CELL COUNT (BEAKER) 6.7 K/ L 3.5-10.5 (test code = 775) RED BLOOD CELL COUNT (BEAKER) 4.59 M/ L 4.63-6.08 L (test code = 761) HEMOGLOBIN (BEAKER) (test code = 14.5 GM/DL 13.7-17.5 410) HEMATOCRIT (BEAKER) (test code = 43.7 % 40.1-51.0 411) MEAN CORPUSCULAR VOLUME (BEAKER) 95.2 fL 79.0-92.2 H (test code = 753) MEAN CORPUSCULAR HEMOGLOBIN 31.6 pg 25.7-32.2 (BEAKER) (test code = 751) MEAN CORPUSCULAR HEMOGLOBIN CONC 33.2 GM/DL 32.3-36.5 (BEAKER) (test code = 752) RED CELL DISTRIBUTION WIDTH 12.9 % 11.6-14.4 (BEAKER) (test code = 412) PLATELET COUNT (BEAKER) (test 175 K/CU MM 150-450 code = 756) MEAN PLATELET VOLUME (BEAKER) 11.6 fL 9.4-12.4 (test code = 754) NUCLEATED RED BLOOD CELLS 0 /100 WBC 0-0 (BEAKER) (test code = 413) NEUTROPHILS RELATIVE PERCENT 60 % (BEAKER) (test code = 429) LYMPHOCYTES RELATIVE PERCENT 27 % (BEAKER) (test code = 430) MONOCYTES RELATIVE PERCENT 10 % (BEAKER) (test code = 431) EOSINOPHILS RELATIVE PERCENT 2 % (BEAKER) (test code = 432) BASOPHILS RELATIVE PERCENT 1 % (BEAKER) (test code = 437) NEUTROPHILS ABSOLUTE COUNT 4.00 K/ L 1.78-5.38 (BEAKER) (test code = 670) LYMPHOCYTES ABSOLUTE COUNT 1.79 K/ L 1.32-3.57 (BEAKER) (test code = 414) MONOCYTES ABSOLUTE COUNT (BEAKER) 0.69 K/ L 0.30-0.82 (test code = 415) EOSINOPHILS ABSOLUTE COUNT 0.15 K/ L 0.04-0.54 (BEAKER) (test code = 416) BASOPHILS ABSOLUTE COUNT (BEAKER) 0.04 K/ L 0.01-0.08 (test code = 417) IMMATURE GRANULOCYTES-RELATIVE 0 % 0-1 PERCENT (BEAKER) (test code = 2801) CBC W/PLT COUNT & AUTO [id number] 04:36:00 Test Item Value Reference Range Interpretation Comments WHITE BLOOD CELL COUNT (BEAKER) 7.9 K/ L 3.5-10.5 (test code = 775) RED BLOOD CELL COUNT (BEAKER) 4.26 M/ L 4.63-6.08 L (test code = 761) HEMOGLOBIN (BEAKER) (test code = 13.5 GM/DL 13.7-17.5 L 410) HEMATOCRIT (BEAKER) (test code = 39.8 % 40.1-51.0 L 411) MEAN CORPUSCULAR VOLUME (BEAKER) 93.4 fL 79.0-92.2 H (test code = 753) MEAN CORPUSCULAR HEMOGLOBIN 31.7 pg 25.7-32.2 (BEAKER) (test code = 751) MEAN CORPUSCULAR HEMOGLOBIN CONC 33.9 GM/DL 32.3-36.5 (BEAKER) (test code = 752) RED CELL DISTRIBUTION WIDTH 13.2 % 11.6-14.4 (BEAKER) (test code = 412) PLATELET COUNT (BEAKER) (test 132 K/CU MM 150-450 L code = 756) MEAN PLATELET VOLUME (BEAKER) 11.1 fL 9.4-12.4 (test code = 754) NUCLEATED RED BLOOD CELLS 0 /100 WBC 0-0 (BEAKER) (test code = 413) NEUTROPHILS RELATIVE PERCENT 64 % (BEAKER) (test code = 429) LYMPHOCYTES RELATIVE PERCENT 23 % (BEAKER) (test code = 430) MONOCYTES RELATIVE PERCENT 10 % (BEAKER) (test code = 431) EOSINOPHILS RELATIVE PERCENT 2 % (BEAKER) (test code = 432) BASOPHILS RELATIVE PERCENT 0 % (BEAKER) (test code = 437) NEUTROPHILS ABSOLUTE COUNT 5.11 K/ L 1.78-5.38 (BEAKER) (test code = 670) LYMPHOCYTES ABSOLUTE COUNT 1.86 K/ L 1.32-3.57 (BEAKER) (test code = 414) MONOCYTES ABSOLUTE COUNT (BEAKER) 0.77 K/ L 0.30-0.82 (test code = 415) EOSINOPHILS ABSOLUTE COUNT 0.15 K/ L 0.04-0.54 (BEAKER) (test code = 416) BASOPHILS ABSOLUTE COUNT (BEAKER) 0.03 K/ L 0.01-0.08 (test code = 417) IMMATURE GRANULOCYTES-RELATIVE 0 % 0-1 PERCENT (BEAKER) (test code = 2801) [id number] 03:54:00 Test Item Value Reference Range Interpretation Comments MAGNESIUM (BEAKER) 2.0 mg/dL 1.6-2.6 Specimen slightly (test code = 627) hemolyzed Operations And Maintenance Technican ID - CARO [id number] 03:54:00 Test Item Value Reference Range Interpretation Comments PHOSPHORUS (BEAKER) 3.4 mg/dL 2.3-4.7 Specimen slightly (test code = 604) hemolyzed Operations And Maintenance Technican ID - CARO MBASIC METABOLIC [id number] 03:54:00 Test Item Value Reference Range Interpretation Comments SODIUM (BEAKER) 134 meq/L 136-145 L (test code = 381) POTASSIUM (BEAKER) 4.0 meq/L 3.5-5.1 Specimen slightly (test code = 379) hemolyzed CHLORIDE (BEAKER) 103 meq/L 98-107 (test code = 382) CO2 (BEAKER) (test 20 meq/L 22-29 L code = 355) BLOOD UREA NITROGEN 16 mg/dL 7-21 (BEAKER) (test code = 354) CREATININE (BEAKER) 0.92 mg/dL 0.57-1.25 Specimen slightly (test code = 358) hemolyzed GLUCOSE RANDOM 99 mg/dL 70-105 (BEAKER) (test code = 652) CALCIUM (BEAKER) 8.7 mg/dL 8.4-10.2 (test code = 697) EGFR (BEAKER) (test 86 mL/min/1.73 ESTIMA UBALDO GFR IS code = 1092) sq m NOT ACCURATE CREATININE CLEARANCE IN PREDICTING GLOMERULAR FILTRATION RATE . ESTIMATED GFR I S NOT APPLICABLE FOR DIALYSIS PATIEN TS. Operations And Maintenance Technican ID - CARO MCT, BRAIN, WITHOUT [id number] 07:26:00Unlisted Reason for Exam - Click Yes and Enter Reason Below->No [facility] : 1965 Sex: MFINAL REPORT CT Head without contrast CLINICAL HISTORY: Cerebral hemorrhage suspected TECHNIQUE: Contiguous axial CT images through the head without contrast. This exam was performed according to the departmental dose optimization program which includes automated exposure control, adjustment of the mA and/or kV according to the patient size, and/or use of an iterative reconstruction technique. COMPARISON: 06/17/2020 FINDINGS: There is interval left-sided craniotomy and extra-axial drainage catheter placement with subsegmental decrease in size of the left cerebral convexity subdural hematoma now measuring 0.8 cm in thickness, previously 2.1 cm. Pneumocephalus is compatible with the recent postsurgical status. There is decreased mass effect compressing the left lateral ventricle with decreased rightward midline shift of a cavum septum pellucidum measuring 0.5 cm, previously 1.0 cm. Asymmetric dilatation of the right temporal horn has subsided. Medial left uncal deviation and effacement of the ambient cisterns is also decreased. There is a new right cerebral vertex subdural hemorrhage measuring 4 mm in thickness, without significant mass effect. There is no CT evidence for acute infarction. IMPRESSION: Since 06/17/2020, status post decompression of the left-sided subdura l hematoma with substantially decreased mass effect. Interval development of a thin right cerebral vertex subdural hemorrhage measuring 4 mm in thickness, for which attention on follow-up is recommended. Signed: Agus Merino MDReport Verified Date/Time: 06/18/2020 07:26:39 Reading Location: [address] Neuro Reading Room BASIC METABOLIC [id number] 04:40:00 Test Item Value Reference Range Interpretation Comments SODIUM (BEAKER) 135 meq/L 136-145 L (test code = 381) POTASSIUM (BEAKER) 4.0 meq/L 3.5-5.1 (test code = 379) CHLORIDE (BEAKER) 103 meq/L 98-107 (test code = 382) CO2 (BEAKER) (test 24 meq/L 22-29 code = 355) BLOOD UREA NITROGEN 14 mg/dL 7-21 (BEAKER) (test code = 354) CREATININE (BEAKER) 1.00 mg/dL 0.57-1.25 (test code = 358) GLUCOSE RANDOM 113 mg/dL 70-105 H (BEAKER) (test code = 652) CALCIUM (BEAKER) 8.9 mg/dL 8.4-10.2 (test code = 697) EGFR (BEAKER) (test 78 mL/min/1.73 ESTIMA UBALDO GFR IS code = 1092) sq m NOT ACCURATE CREATININE CLEARANCE IN PREDICTING GLOMERULAR FILTRATION RATE . ESTIMATED GFR I S NOT APPLICABLE FOR DIALYSIS PATIEN TS. Operations And Maintenance Technican ID - CARO [id number] 04:40:00 Test Item Value Reference Range Interpretation Comments MAGNESIUM (BEAKER) (test code = 1.9 mg/dL 1.6-2.6 627) Operations And Maintenance Technican ID - CARO [id number] 04:40:00 Test Item Value Reference Range Interpretation Comments PHOSPHORUS (BEAKER) (test code = 3.5 mg/dL 2.3-4.7 604) Operations And Maintenance Technican ID - CARO MCBC W/PLT COUNT & AUTO [id number] 04:27:00 Test Item Value Reference Range Interpretation Comments WHITE BLOOD CELL COUNT (BEAKER) 10.8 K/ L 3.5-10.5 H (test code = 775) RED BLOOD CELL COUNT (BEAKER) 4.48 M/ L 4.63-6.08 L (test code = 761) HEMOGLOBIN (BEAKER) (test code = 14.2 GM/DL 13.7-17.5 410) HEMATOCRIT (BEAKER) (test code = 41.9 % 40.1-51.0 411) MEAN CORPUSCULAR VOLUME (BEAKER) 93.5 fL 79.0-92.2 H (test code = 753) MEAN CORPUSCULAR HEMOGLOBIN 31.7 pg 25.7-32.2 (BEAKER) (test code = 751) MEAN CORPUSCULAR HEMOGLOBIN CONC 33.9 GM/DL 32.3-36.5 (BEAKER) (test code = 752) RED CELL DISTRIBUTION WIDTH 12.9 % 11.6-14.4 (BEAKER) (test code = 412) PLATELET COUNT (BEAKER) (test 157 K/CU MM 150-450 code = 756) MEAN PLATELET VOLUME (BEAKER) 11.8 fL 9.4-12.4 (test code = 754) NUCLEATED RED BLOOD CELLS 0 /100 WBC 0-0 (BEAKER) (test code = 413) NEUTROPHILS RELATIVE PERCENT 78 % (BEAKER) (test code = 429) LYMPHOCYTES RELATIVE PERCENT 13 % (BEAKER) (test code = 430) MONOCYTES RELATIVE PERCENT 8 % (BEAKER) (test code = 431) EOSINOPHILS RELATIVE PERCENT 0 % (BEAKER) (test code = 432) BASOPHILS RELATIVE PERCENT 0 % (BEAKER) (test code = 437) NEUTROPHILS ABSOLUTE COUNT 8.44 K/ L 1.78-5.38 H (BEAKER) (test code = 670) LYMPHOCYTES ABSOLUTE COUNT 1.40 K/ L 1.32-3.57 (BEAKER) (test code = 414) MONOCYTES ABSOLUTE COUNT (BEAKER) 0.91 K/ L 0.30-0.82 H (test code = 415) EOSINOPHILS ABSOLUTE COUNT 0.01 K/ L 0.04-0.54 L (BEAKER) (test code = 416) BASOPHILS ABSOLUTE COUNT (BEAKER) 0.01 K/ L 0.01-0.08 (test code = 417) IMMATURE GRANULOCYTES-RELATIVE 0 % 0-1 PERCENT (BEAKER) (test code = 2801) ECG 12 [id number] 13:59:49Interface, External Ris In - 06/17/2020 1:59 PM CDTVentricular Rate 50 BPMAtrial Rate 50 BPMP-R Interval 194 msQRS Duration 94 msQ-T Interval 430 msQTC Calculation(Bazett) 392 msP Sanborn 31 degreesR Sanborn -7 degreesT Sanborn 6 degreesSinus bradycardiaOtherwise normal ECGNo previous ECGs availableConfirmed by MD Garay Roberto ([id number]) on 06/17/2020 1:59:44 PM [facility] T[facility] If [id number] 08:07:00 Test Item Value Reference Range Interpretation Comments TSH (test code = 2.822 See_Comment [Automated 05384-3) message] The system which generated this result transmit ubaldo reference range : 0.350 - 4.940 uIU/mL. The reference range was not used to interpret this result as normal/abnormal . SUGEY (test code = SUGEY) Operations And Maintenance Technican ID - JUAN L Lab Interpretation Normal (test code = 68245-2) [facility] T4 IF [id number] 08:07:00 Test Item Value Reference Range Interpretation Comments THYROID STIMULATING HORMONE 2.822 uIU/mL 0.350-4.940 (BEAKER) (test code = 772) Operations And Maintenance Technican ID - JUAN LCT, BRAIN, WITHOUT [id number] 08:05:00Followup from [place] scan. Previously read as 2cm diameter with 12-13mm MLSUnlisted Reason for Exam - Click Yes and Enter Reason Below->No [facility] : 1965 Sex: MFINAL REPORT CT Head without contrast CLINICAL HISTORY: Subdural hematoma TECHNIQUE: Contiguous axial CT images through the head without contrast. This exam was performed according to the departmental dose optimization program which includes automated exposure control, adjustment of the mA and/or kV according to the patient size, and/or use of an iterative reconstruction technique. COMPARISON: None FINDINGS: There is a left cerebral convexity subdural hematoma measuring 2.1cm in thickness with a layering hematocrit level. There is mass effect compressing the left cerebralhemisphere and narrowing the left lateral ventricle. There is rightward midline shift of the septum pellucidum by 1.0 cm. Asymmetric dilatation of the right temporal horn is compatible with early/partial entrapment. Medial left uncal deviation is also seen effacing the bilateral ambient cisterns with rightward brainstem displacement. There is no CT evidence for acute ischemia. There is no skull fracture. IMPRESSION: Left cerebral convexity subdural hematoma with mass effect and rightward midline shift including uncal deviation. Asymmetric dilatation of the right temporal horn compatible with early/partial ventricular entrapment. Given the stated history of subdural hematoma, comparison with outside imaging is recommended to determine stability or change. Signed: Agus Merino MDReport Verified Date/Time: 06/17/2020 08:05:59 Reading Location: [facility] C013V Neuro Reading Room Christel [id number] 04:24:00 Test Item Value Reference Range Interpretation Comments Troponin I (test code = <0.01 0-0.03 45781-5) SUGEY (test code = SUGEY) Troponin I (TnI) levels must be interpreted in the context of the presenting symptoms and the clinical findings. Elevated TnI levels indicate myocardial damage, but are not specific for ischemic heart disease. Elevated TnI levels are seen in patients with other cardiac conditions (including myocarditis and congestive heart failure), and slight TnI elevations occur in patients with other conditions, including sepsis, renal failure, acidosis, acute neurological disease, and persistent tachyarrhythmia.Opera tor MATHEUS - JUAN Richards Lab Interpretation (test Normal code = 31835-5) [facility] [id number] 04:24:00 Test Item Value Reference Range Interpretation Comments TROPONIN I (BEAKER) (test code = 397) < ng/mL 0.00-0.03 Troponin I (TnI) levels must be interpreted in the context of the presenting symptoms and the clinical findings. Elevated TnI levels indicate myocardial damage, but are not specific for ischemic heart disease. Elevated TnI levels are seen in patients with other cardiac conditions (including myocarditis and congestive heart failure), and slight TnI elevations occur in patients with other conditions, including sepsis, renal failure, acidosis, acute neurological disease, and persistent tachyarrhythmia.Operations And Maintenance Technican MATHEUS BRAXTONipid panel 2020-06-17 04:22:00 Test Item Value Reference Range Interpretation Comments Triglycerides (test 184 mg/dL code = 2571-8) Cholesterol (test code 193 mg/dL = 2093-3) HDL (test code = 34 mg/dL 2085-9) LDL Calculated (test 122 mg/dL code = 37997-6) SUGEY (test code = SUGEY) Triglyceride Reference Range: Low Risk <150 Borderline 150-199 High Risk 200-499 Very High Risk >=500 Cholesterol Reference Range: Low Risk <200 Borderline 200-239 High Risk >240 HDL Cholesterol Reference Range: Low Risk >=60 High Risk <40 LDL Cholesterol Reference Range: Optimal <100 Near Optimal 100-129 Borderline 130-159 High 160-189 Very High >=190 Operations And Maintenance Technican ID - PIAYA L [facility] [id number] 04:22:00 Test Item Value Reference Range Interpretation Comments SODIUM (BEAKER) 138 meq/L 136-145 (test code = 381) POTASSIUM (BEAKER) 4.2 meq/L 3.5-5.1 (test code = 379) CHLORIDE (BEAKER) 107 meq/L 98-107 (test code = 382) CO2 (BEAKER) (test 24 meq/L 22-29 code = 355) BLOOD UREA NITROGEN 15 mg/dL 7-21 (BEAKER) (test code = 354) CREATININE (BEAKER) 0.92 mg/dL 0.57-1.25 (test code = 358) GLUCOSE RANDOM 97 mg/dL 70-105 (BEAKER) (test code = 652) CALCIUM (BEAKER) 8.3 mg/dL 8.4-10.2 L (test code = 697) EGFR (BEAKER) (test 86 mL/min/1.73 ESTIMA UBALDO GFR IS code = 1092) sq m NOT ACCURATE CREATININE CLEARANCE IN PREDICTING GLOMERULAR FILTRATION RATE . ESTIMATED GFR I S NOT APPLICABLE FOR DIALYSIS PATIEN TS. Operations And Maintenance Technican ID - JUAN [id number] 04:22:00 Test Item Value Reference Range Interpretation Comments MAGNESIUM (BEAKER) (test code = 2.1 mg/dL 1.6-2.6 627) Operations And Maintenance Technican ID - JUAN [id number] 04:22:00 Test Item Value Reference Range Interpretation Comments PHOSPHORUS (BEAKER) (test code = 3.7 mg/dL 2.3-4.7 604) Operations And Maintenance Technican ID - JUAN LLIPID [id number] 04:22:00 Test Item Value Reference Range Interpretation Comments TRIGLYCERIDES (BEAKER) (test code = 184 mg/dL 540) CHOLESTEROL (BEAKER) (test code = 193 mg/dL 631) HDL CHOLESTEROL (BEAKER) (test code 34 mg/dL = 976) LDL CHOLESTEROL CALCULATED (BEAKER) 122 mg/dL (test code = 633) Triglyceride Reference Range: Low Risk <150 Borderline 150-199 High Risk 200-499 Very High Risk >=500Cholesterol Reference Range: Low Risk <200 Borderline 200-239 High Risk >240HDL Cholesterol Reference Range: Low Risk >=60 High Risk <40LDL Cholesterol Reference Range: Optimal <100 Near Optimal 100-129 Borderline 130-159 High 160-189 Very High >=190 Operations And Maintenance Technican ID - MINNIEAYALCBC W/PLT COUNT & AUTO [id number] 04:02:00 Test Item Value Reference Range Interpretation Comments WHITE BLOOD CELL COUNT (BEAKER) 5.6 K/ L 3.5-10.5 (test code = 775) RED BLOOD CELL COUNT (BEAKER) 4.29 M/ L 4.63-6.08 L (test code = 761) HEMOGLOBIN (BEAKER) (test code = 13.6 GM/DL 13.7-17.5 L 410) HEMATOCRIT (BEAKER) (test code = 40.0 % 40.1-51.0 L 411) MEAN CORPUSCULAR VOLUME (BEAKER) 93.2 fL 79.0-92.2 H (test code = 753) MEAN CORPUSCULAR HEMOGLOBIN 31.7 pg 25.7-32.2 (BEAKER) (test code = 751) MEAN CORPUSCULAR HEMOGLOBIN CONC 34.0 GM/DL 32.3-36.5 (BEAKER) (test code = 752) RED CELL DISTRIBUTION WIDTH 13.0 % 11.6-14.4 (BEAKER) (test code = 412) PLATELET COUNT (BEAKER) (test 119 K/CU MM 150-450 L code = 756) MEAN PLATELET VOLUME (BEAKER) 11.5 fL 9.4-12.4 (test code = 754) NUCLEATED RED BLOOD CELLS 0 /100 WBC 0-0 (BEAKER) (test code = 413) NEUTROPHILS RELATIVE PERCENT 60 % (BEAKER) (test code = 429) LYMPHOCYTES RELATIVE PERCENT 29 % (BEAKER) (test code = 430) MONOCYTES RELATIVE PERCENT 7 % (BEAKER) (test code = 431) EOSINOPHILS RELATIVE PERCENT 3 % (BEAKER) (test code = 432) BASOPHILS RELATIVE PERCENT 1 % (BEAKER) (test code = 437) NEUTROPHILS ABSOLUTE COUNT 3.33 K/ L 1.78-5.38 (BEAKER) (test code = 670) LYMPHOCYTES ABSOLUTE COUNT 1.61 K/ L 1.32-3.57 (BEAKER) (test code = 414) MONOCYTES ABSOLUTE COUNT (BEAKER) 0.40 K/ L 0.30-0.82 (test code = 415) EOSINOPHILS ABSOLUTE COUNT 0.17 K/ L 0.04-0.54 (BEAKER) (test code = 416) BASOPHILS ABSOLUTE COUNT (BEAKER) 0.03 K/ L 0.01-0.08 (test code = 417) IMMATURE GRANULOCYTES-RELATIVE 0 % 0-1 PERCENT (BEAKER) (test code = 2801) SARS-CoV2/RT-PCR (Asymptomatic ONLY)2020-06-16 23:03:00 Test Item Value Reference Range Interpretation Comments SARS-COV2/RT-PCR Negative Not Detected, (test code = Negative, See 50681-4) external report for linked test SARS-COV-2 [facility] PERFORMING LAB (test code = 43729-9) SUGEY (test code = Negative results do not SUGEY) preclude SARS-CoV-2 infection and should not be used as the sole basis for patient management decisions. Negative results must be combined with clinical observations, patient history, and epidemiological information. A false negative result may occur if a specimen is improperly collected, transported or handled. The limit of detection for this assay is 250 copies/mL. This SARS CoV-2 test is a rapid, real-time RT-PCR test intended for the qualitative detection of nucleic acid from SARS-CoV-2 in a nasopharyngeal swab specimen collected from individuals suspected of COVID-19 by their healthcare provider. This test has not been Food and Drug Administration (FDA) cleared or approved and has been authorized by FDA under an Emergency Use Authorization (EUA). This EUA will be effective until the declaration that circumstances exist justifying the authorization of the emergency use of in vitro diagnostic tests for detection and/or diagnosis of COVID-19 is terminated under Section 564(b)(2) of the Act or the EUA is revoked under Section 564(g) of the Act. Fact Sheet for Healthcare Providers:https://www.LS9/Documents/Xper t%20Xpress%20SARS%20CoV- 2/Fact%20Sheets/407-9352 %16UCFU-YDV-9%20HEALTHCA RE%20PROVIDERS%20FACT%20 SHEET.pdf Fact Sheet for Healthcare Patients:https://www.Oximityid.[employer]harat [employer]rimony/Documents/Xpert %20Xpress%20SARS%20CoV-2 /Fact%20Sheets/034-3801% 51WWLN-XZV-1%20PATIENT%2 0FACT%20SHEET.pdf Performing Laboratory:[facility] [place] [address] [facility] ([facility])2020-06-16 23:03:00 Test Item Value Reference Range Interpretation Comments SARS-COV2/RT-PCR (test code Negative Not Detected, Negative, = 8833084) See external report for linked test SARS-COV-2 PERFORMING LAB [facility] (test code = 3198053) Negative results do not preclude SARS-CoV-2 infection and should not be used as the sole basis for patient management decisions. Negative results must be combined with clinical observations, patient history, and epidemiological information. A false negative result may occur if a specimen is improperly collected, transported or handled.The limit of detection for this assay is 250 copies/mL.This SARS CoV-2 test is a rapid, real-time RT-PCR test intended for the qualitative detection of nucleic acid from SARS-CoV-2 in a nasopharyngeal swab specimen collected from individuals suspected of COVID-19 by their healthcare provider.This test has not been Food and Drug Administration (FDA) cleared or approved and has been authorized by FDA under an Emergency Use Authorization (EUA). This EUA will be effective until the declaration that circumstances exist justifying the authorization of the emergency use of in vitro diagnostic tests for detection and/or diagnosis of COVID-19 is terminated under Section 564(b)(2) of the Act or the EUA is revoked under Section 564(g) of the Act.Fact Sheet for Healthcare Pro viders:https://www.[employer]/Documents/Xpert%20Xpress%20SARS%20CoV-2/Fact%20Sh eets/302-3602%00YWDD-FZP-6%20HEALTHCARE%20PROVIDERS%20FACT%20SHEET.pdfFact Sheet for Healthcare Patients:https://www.[facility] id.Bharat Matrimony/Documents/Xpert%20Xpress%20SARS%20CoV-2/Fact%20Sheets/3023801%20SARS-COV -2%20PATIENT%20FACT%20SHEET.pdfPerforming Laboratory:[facility], [place] [address]VXSXX, [id number] 22:13:00 Test Item Value Reference Range Interpretation Comments ABO Grouping (test code = 2588) O Rh Factor (test code = 2589) POS [facility] and screen, [id number] 21:59:00 Test Item Value Reference Range Interpretation Comments ABO/RH AUTOMATED (BEAKER) (test O POSITIVE code = 2260) Ab Scrn (test code = 890-4) NEGATIVE [facility] HospitalFibrinogen2021-03-29 21:56:00 Test Item Value Reference Range Interpretation Comments Fibrinogen (test code = 3255-7) 289 mg/dl 225-434 Lab Interpretation (test code = Normal 69961-6) [facility] HospitalaPTT2021-[facility]-29 21:56:00 Test Item Value Reference Range Interpretation Comments PTT (test code = 98697-5) 32.8 See_Comment [ Automated message] The system Dailymotion generated this result transmitted ref erence range: 22.5 - 3 6.0 seconds. The re ference range was not u sed to interpret this result as normal/abnor mal. Lab Interpretation (test Normal code = 16533-7) [facility] HospitalAPTT2021-[facility] 21:56:00 Test Item Value Reference Range Interpretation Comments PARTIAL THROMBOPLASTIN TIME 32.8 seconds 22.5-36.0 (BEAKER) (test code = 760) [id number] 21:56:00 Test Item Value Reference Range Interpretation Comments FIBRINOGEN LEVEL (BEAKER) (test 289 mg/dl 225-434 code = 658) Prothrombin time/[id number] 21:55:00 Test Item Value Reference Interpretation Comments Range Protime (test code = 13.7 See_Comment [Autom ated 5902-2) message] The system which generated this result transmitted reference range : 11.9 - 14.2 seconds. The reference range was not used to interpret this result as normal/abnormal . INR (test code = 1.10 See_Comment [Automated 6301-6) message] The system which generated this result transmitted reference range : <=5.90. The reference range was not used to interpret this result as normal/abnormal . SUGEY (test code = Effective 08/16/2018: SUGEY) PT Reference Range ChangeNew: 11.9-14.2 Previous: 11.7-14.7 RECOMMENDED COUMADIN/WARFARIN INR THERAPY RANGESSTANDARD DOSE: 2.0-3.0 Includes: PROPHYLAXIS for venous thrombosis, systemic embolization; TREATMENT for venous thrombosis and/or pulmonary embolus.HIGH RISK: Target INR is 2.5-3.5 for patients wiht mechanical heart valves. Lab Interpretation Normal (test code = 80815-5) [facility] HospitalPROTHROMBIN TIME/[id number] 21:55:00 Test Item Value Reference Range Interpretation Comments PROTIME (BEAKER) 13.7 seconds 11.9-14.2 (test code = 759) INR (BEAKER) (test 1.10 See_Comment [Automat ed message] code = 370) The system Dailymotion generated this result transmitted ref erence range: <=5.90. The reference range was not used to int erpret this result as normal/abnormal . Effective 08/16/2018: PT Reference Range ChangeNew: 11.9-14.2 Previous: 11.7- 14.7RECOMMENDED COUMADIN/WARFARIN INR THERAPY RANGESSTANDARD DOSE: 2.0-3.0 Includes: PROPHYLAXIS for venous thrombosis, systemic embolization; TREATMENT for venous thrombosis and/or pulmonary embolus.HIGH RISK: Target INR is2.5-3.5 for patients wiht mechanical heart valves.BASIC METABOLIC [id number] 21:45:00 Test Item Value Reference Range Interpretation Comments SODIUM (BEAKER) 140 meq/L 136-145 (test code = 381) POTASSIUM (BEAKER) 4.2 meq/L 3.5-5.1 (test code = 379) CHLORIDE (BEAKER) 107 meq/L 98-107 (test code = 382) CO2 (BEAKER) (test 24 meq/L 22-29 code = 355) BLOOD UREA NITROGEN 13 mg/dL 7-21 (BEAKER) (test code = 354) CREATININE (BEAKER) 0.93 mg/dL 0.57-1.25 (test code = 358) GLUCOSE RANDOM 92 mg/dL 70-105 (BEAKER) (test code = 652) CALCIUM (BEAKER) 8.9 mg/dL 8.4-10.2 (test code = 697) EGFR (BEAKER) (test 85 mL/min/1.73 ESTIMA UBALDO GFR IS code = 1092) sq m NOT ACCURATE CREATININE CLEARANCE IN PREDICTING GLOMERULAR FILTRATION RATE . ESTIMATED GFR I S NOT APPLICABLE FOR DIALYSIS PATIEN TS. Operations And Maintenance Technican ID - [id number] 21:45:00 Test Item Value Reference Range Interpretation Comments MAGNESIUM (BEAKER) (test code = 2.0 mg/dL 1.6-2.6 627) Operations And Maintenance Technican ID - [id number] 21:45:00 Test Item Value Reference Range Interpretation Comments PHOSPHORUS (BEAKER) (test code = 3.8 mg/dL 2.3-4.7 604) Operations And Maintenance Technican ID - DBCBC W/PLT COUNT & AUTO [id number] 21:29:00 Test Item Value Reference Range Interpretation Comments WHITE BLOOD CELL COUNT (BEAKER) 5.5 K/ L 3.5-10.5 (test code = 775) RED BLOOD CELL COUNT (BEAKER) 4.46 M/ L 4.63-6.08 L (test code = 761) HEMOGLOBIN (BEAKER) (test code = 14.1 GM/DL 13.7-17.5 410) HEMATOCRIT (BEAKER) (test code = 42.2 % 40.1-51.0 411) MEAN CORPUSCULAR VOLUME (BEAKER) 94.6 fL 79.0-92.2 H (test code = 753) MEAN CORPUSCULAR HEMOGLOBIN 31.6 pg 25.7-32.2 (BEAKER) (test code = 751) MEAN CORPUSCULAR HEMOGLOBIN CONC 33.4 GM/DL 32.3-36.5 (BEAKER) (test code = 752) RED CELL DISTRIBUTION WIDTH 12.7 % 11.6-14.4 (BEAKER) (test code = 412) PLATELET COUNT (BEAKER) (test 121 K/CU MM 150-450 L code = 756) MEAN PLATELET VOLUME (BEAKER) 12.0 fL 9.4-12.4 (test code = 754) NUCLEATED RED BLOOD CELLS 0 /100 WBC 0-0 (BEAKER) (test code = 413) NEUTROPHILS RELATIVE PERCENT 55 % (BEAKER) (test code = 429) LYMPHOCYTES RELATIVE PERCENT 34 % (BEAKER) (test code = 430) MONOCYTES RELATIVE PERCENT 7 % (BEAKER) (test code = 431) EOSINOPHILS RELATIVE PERCENT 4 % (BEAKER) (test code = 432) BASOPHILS RELATIVE PERCENT 1 % (BEAKER) (test code = 437) NEUTROPHILS ABSOLUTE COUNT 3.03 K/ L 1.78-5.38 (BEAKER) (test code = 670) LYMPHOCYTES ABSOLUTE COUNT 1.84 K/ L 1.32-3.57 (BEAKER) (test code = 414) MONOCYTES ABSOLUTE COUNT (BEAKER) 0.39 K/ L 0.30-0.82 (test code = 415) EOSINOPHILS ABSOLUTE COUNT 0.19 K/ L 0.04-0.54 (BEAKER) (test code = 416) BASOPHILS ABSOLUTE COUNT (BEAKER) 0.03 K/ L 0.01-0.08 (test code = 417) IMMATURE GRANULOCYTES-RELATIVE 0 % 0-1 PERCENT (BEAKER) (test code = 2801) RAD, CHEST, 1 VIEW, NON [id number] 21:19:00Reason for exam:->SDHShould this be performed at the bedside?->Yes [facility] : 1965 Sex: MFINAL REPORT Chest one view. Clinical history: SDH Comparison: None. Technique: A single frontal view of the chest was obtained. Findings: The cardiac silhouette is normal in size. The aorta is tortuous and atherosclerotic. There is no focal pulmonary consolidation, pleuraleffusion or pneumothorax. There is no pulmonary edema. There are mild degenerative changes of the jeremías ateral acromioclavicular joints. There is a small right subacromial spur. Impression: No focal pulmonary consolidation. Signed: Mar[facility]za [facility] [facility] Ver[facility] Date/Time: 06/16/2020 21:19:03 XR chest 1 view portable / bedside 2020-06-16 21:19:00Interface, External Ris In - 06/16/2020 9:21 PM CDTFINAL REPORT Chest one view. Clinical history: SDH Comparison: None. Technique: A single frontal view of the chest was obtained. Findings: The cardiac silhouette is normal in size. The aorta is tortuous and atherosclerotic. There is no focal pulmonary consolidation, pleural effusion or pneumothorax. There is no pulmonary edema. There are mild degenerative changes of the bilateral acromioclavicular joints. There is a small right subacromial spur. Impression: No focal pulmonary consolidation. Signed: Maritza Oviedo rified Date/Time: 06/16/2020 21:19:03 [facility]
--- NOTE | 2020-06-24 13:03 | RAD REPORT ---
EXAM DESCRIPTION: CT - Head Brain Wo Cont - 06/24/2020 12:50 pm CLINICAL HISTORY: post craniotomy, intermittent left sided tingling Pain and swelling COMPARISON: Head Brain Wo Cont dated 06/16/2020; Head Brain Wo Cont dated 02/09/2018 TECHNIQUE: All CT scans are performed using dose optimization technique as appropriate and may inclu de automated exposure control or mA/KV adjustment according to patient size. FINDINGS: There has been reduction in the size of the left sided subdural hematoma since prior study .However, there continues to be a 10 mm crescentic subdural hematoma present on the left containing b oth air, intermediate density blood and small amount of acute blood superiorly.6-7 mm midline shift i s present to the right. The paranasal sinuses and mastoids are clear. A left-sided craniotomy is present. IMPRESSION: There remains present a 10 mm deep crescentic subdural hematoma along the left convexity . This contains intermediate density fluid, small amount of acute blood and a small volume of air. Mild midline shift of 6-7 mm to the right is present.
[2020-06-24 13:27] LABS: Absolute Lymphocytes (CBC) 1.5 K/uL (0.7-4.9); Basophils % 0.8 % (0-1.3); Hematocrit 40.2 % (39.6-49.0); RBC Red Blood Cell Count 4.32 M/uL (4.33-5.43)
[2020-06-24 13:43] LABS: Magnesium 2.4 mg/dL (1.8-2.4)
[2020-06-24 13:49] LABS: Protime INR 1.11
--- NOTE | 2020-06-24 14:26 | ER ---
Nurse's Notes [facility] Name: Wyatt Sepulveda Age: 54 yrs Sex: Male : 1965 Arrival Date: 06/24/2020 Time: 11:58 Bed 5 Private MD: Diagnosis: Subdural hemorrhage;Paresthesia of skin Presentation: 06/24 12:05 Coronavirus screen: Client denies travel out of the [place] in the last 14 days. At this ll1 time, the client does not indicate any symptoms associated with coronavirus-19. Ebola Screen: Patient denies travel to an Ebola-affected area in the 21 days before illness onset. Initial Sepsis Screen: Does the patient meet any 2 criteria? No. Patient's initial sepsis screen is negative. Does the patient have a suspected source of infection? No. Patient's initial sepsis screen is negative. Risk Assessment: Do you want to hurt yourself or someone else? Patient reports no desire to harm self or others. Onset of symptoms was June 22, 2020. 12:05 Method Of Arrival: Ambulatory ll1 12:05 Acuity: CARRIE 3 ll1 12:07 Chief complaint: Patient states: L leg numb for 3 days. Numbness is progressing up l ll1 side of body each day. Even his arm feels numb now. No pain. Gait steady. No fever. Historical: - Allergies: 12:05 No Known Allergies; ll1 - Home Meds: 12:54 lisinopril 20 mg Oral tab 1 tab once daily [Active]; ld1 - PMHx: 12:05 Hypertension; Brain bleed-craniotomy; ll1 - Immunization history:: Client reports receiving the 2nd dose of the Covid vaccine, Flu vaccine is up to date. Adult Immunizations up to date. - Social history:: Smoking status: Patient denies any tobacco usage or history of. - Family history:: not pertinent. - Hospitalizations: : Patient was recently seen at. Screenin:54 Abuse screen: Denies threats or abuse. Denies injuries from another. Nutritional ld1 screening: No deficits noted. Tuberculosis screening: No symptoms or risk factors identified. Fall Risk IV access (20 points). Total George Fall Scale indicates No Risk (0-24 pts). Assessment: 12:47 General: Appears in no apparent distress. comfortable, Behavior is calm, cooperative, ld1 appropriate for age. Pain: Denies pain. Neuro: Reports numbness in left hand, left foot, left arm and left leg since Patient c/o numbness from left leg to left shoulder. States he had a craniotomy three days ago and it is continuously become more numb. It is not continuously numb, it comes and goes. Cardiovascular: Patient's skin is warm and dry. Respiratory: Airway is patent Respiratory effort is even, unlabored, Respiratory pattern is regular, symmetrical. GI: Abdomen is round non-distended, Bowel sounds present X 4 quads. : No signs and/or symptoms were reported regarding the genitourinary system. EENT: No deficits noted. Derm: No deficits noted. 14:02 Reassessment: Patient appears in no apparent distress at this time. No changes from ld1 previously documented assessment. Patient and/or family updated on plan of care and expected duration. Pain level reassessed. Patient is alert, oriented x 3, equal unlabored respirations, skin warm/dry/pink. Patient denies pain at this time. 15:00 Reassessment: Patient appears in no apparent distress at this time. Patient and/or hb family updated on plan of care and expected duration. Pain level reassessed. Patient is alert, oriented x 3, equal unlabored respirations, skin warm/dry/pink. Vital Signs: 12:05 BP 138 / 86; Pulse 60; Resp 17; Temp 97.2; Pulse Ox 100% ; Weight 112.49 kg; Height 5 ll1 ft. 8 in. (172.72 cm); Pain 0/10; 12:54 BP 126 / 78; Pulse 61; Resp 14; Temp 98.8(O); Pulse Ox 100% on R/A; Weight 113.4 kg; ld1 Height 5 ft. 8 in. (172.72 cm); Pain 0/10; 13:49 BP 126 / 78; Pulse 86; Resp 16; Pulse Ox 100% ; Pain 0/10; ld1 15:00 BP 126 / 78; Pulse 59; Resp 18; Pulse Ox 100% on R/A; Pain 0/10; ld1 15:45 BP 132 / 80; Pulse 60; Resp 19; Pulse Ox 97% ; hb 12:54 Body Mass Index 38.01 (113.40 kg, 172.72 cm) ld1 ED Course: 11:58 Patient arrived in ED. ds1 12:04 Arm band placed on. ll1 12:07 Triage completed. ll1 12:15 Yazan Philip MD is Attending Physician. rn 12:15 Alma Duncan, RN is Primary Nurse. iw 12:50 CT Head Brain wo Cont In Process Unspecified. EDMS 12:54 Patient has correct armband on for positive identification. Bed in low position. Call ld1 light in reach. Side rails up X 1. 12:54 No provider procedures requiring assistance completed. ld1 13:12 Inserted saline lock: 20 gauge in right forearm, using aseptic technique. Blood mt collected. 13:14 Inserted saline lock: 20 gauge in right forearm, using aseptic technique. Blood ld1 collected. Missed attempt(s): 20 gauge in right antecubital area. 13:48 initiated transfer to [facility]. bd 14:43 pt accepted in transfer to [facility] by dr Brown, admin approval given by rebecca Grossman. 16:05 Patient transferred, IV remains in place. iw Administered Medications: No medications were administered Outcome: 14:25 ER care complete, transfer ordered by . rn 16:04 Transferred by ground EMS to [facility]. ld1 16:04 Condition: stable 16:04 Discharge instructions given to patient, EMS. 16:06 Patient left the ED. ld1 Signatures: Dispatcher [employer] EDMS Earnestine Gamino Demi ds1 Alma Duncan, VARGAS RN iw Yazan Philip MD MD rn Baxter, Heather, RN RN hb Thompson, Moriah mt Lewis, Lynsay, RN RN ll1 Bonnie Prieto RN RN ld1
--- NOTE | 2020-06-24 14:26 | EDPHYS ---
Physician Documentation [facility] Name: Wyatt Sepulveda Age: 54 yrs Sex: Male : 1965 Arrival Date: 06/24/2020 Time: 11:58 Bed 5 Private MD: ED Physician Yazan Philip HPI: 06/24 12:32 This 54 yrs old Male presents to ER via Ambulatory with complaints of Numbness.rn 12:32 The patient's problem is reported as paresthesias, in left upper extremity, in left rn lower extremity. Onset: The symptoms/episode began/occurred yesterday. The symptoms are alleviated by nothing. The symptoms are aggravated by nothing. Associated signs and symptoms: Pertinent negatives: abdominal pain, seizure, shortness of breath, vomiting, weakness. Severity of symptoms: At their worst the symptoms were mild in the emergency department the symptoms have improved. The patient has not experienced similar symptoms in the past. The patient has been recently seen by a physician:. Reports had subdural hemorrhage, transferred to [place], had craniotomy performed, yesterday began with numbness to left leg, seemed to travel up to left side of torso and arm, intermittent, lasts about 5 min, not currently numb or weak, no headache. NO new meds. . Historical: - Allergies: 12:05 No Known Allergies; ll1 - Home Meds: 12:54 lisinopril 20 mg Oral tab 1 tab once daily [Active]; ld1 - PMHx: 12:05 Hypertension; Brain bleed-craniotomy; ll1 - Immunization history:: Client reports receiving the 2nd dose of the Covid vaccine, Flu vaccine is up to date. Adult Immunizations up to date. - Social history:: Smoking status: Patient denies any tobacco usage or history of. - Family history:: not pertinent. - Hospitalizations: : Patient was recently seen at. ROS: 12:32 Constitutional: Negative for fever, chills, and weight loss, Eyes: Negative for injury, rn pain, redness, and discharge, Neck: Negative for injury, pain, and swelling, Cardiovascular: Negative for chest pain, palpitations, and edema, Respiratory: Negative for shortness of breath, cough, wheezing, and pleuritic chest pain, Abdomen/GI: Negative for abdominal pain, nausea, vomiting, diarrhea, and constipation, Back: Negative for injury and pain, MS/Extremity: Negative for injury and deformity, Skin: Negative for injury, rash, and discoloration, Neuro: Negative for headache, and seizure. Exam: 12:32 Constitutional: This is a well developed, well nourished patient who is awake, alert, rn and in no acute distress. Joking. Head/Face: Normocephalic, atraumatic. Eyes: Pupils equal round and reactive to light, extra-ocular motions intact Cardiovascular: Regular rate and rhythm. No pulse deficits. Respiratory: No increased work of breathing, no retractions or nasal flaring. Abdomen/GI: Soft, non-tender Skin: Warm, dry with normal turgor. Normal color with no rashes, no lesions, and no evidence of cellulitis. MS/ Extremity: Pulses equal, no cyanosis. Neurovascular intact. Full, normal range of motion. Equal circumference. Neuro: Awake and alert, GCS 15, oriented to person, place, time, and situation. Cranial nerves II-XII grossly intact. Motor strength 5/5 in all extremities. Sensory grossly intact. Vital Signs: 12:05 BP 138 / 86; Pulse 60; Resp 17; Temp 97.2; Pulse Ox 100% ; Weight 112.49 kg; Height 5 ll1 ft. 8 in. (172.72 cm); Pain 0/10; 12:54 BP 126 / 78; Pulse 61; Resp 14; Temp 98.8(O); Pulse Ox 100% on R/A; Weight 113.4 kg; ld1 Height 5 ft. 8 in. (172.72 cm); Pain 0/10; 13:49 BP 126 / 78; Pulse 86; Resp 16; Pulse Ox 100% ; Pain 0/10; ld1 15:00 BP 126 / 78; Pulse 59; Resp 18; Pulse Ox 100% on R/A; Pain 0/10; ld1 15:45 BP 132 / 80; Pulse 60; Resp 19; Pulse Ox 97% ; hb 12:54 Body Mass Index 38.01 (113.40 kg, 172.72 cm) ld1 MDM: 12:15 Patient medically screened. rn 13:47 ED course: Calling [facility] neurosurgery to consult regarding persistent subdural, rn which could be residual and normal finding after craniotomy, but concerning given new numbness and tingling left side of body and possibly new blood seen on todays ct scan. . 14:23 Differential diagnosis: post craniotomy symptoms, post-concussive symptoms, residual rn blood, new blood. Data reviewed: vital signs, nurses notes, lab test result(s), radiologic studies, CT scan, and as a result, I will admit patient. Counseling: I had a detailed discussion with the patient and/or guardian regarding: the historical points, exam findings, and any diagnostic results supporting the discharge/admit diagnosis, lab results, radiology results, the need to transfer to another facility, for higher level of care, [facility] does not immediately have the required specialist. ED course: Accepted for transfer to [facility] neuro ICU for further neuro evaluation given new symptoms and possibly new blood on CT, GCS 15, stable for transfer. . 06/24 12:30 Order name: CBC with Diff; Complete Time: 14:00 06/24 12:30 Order name: Basic Metabolic Panel; Complete Time: 14:00 06/24 12:30 Order name: Magnesium; Complete Time: 14:00 06/24 12:30 Order name: Protime (+inr); Complete Time: 14:00 06/24 12:30 Order name: Ptt, Activated; Complete Time: 14:00 06/24 12:30 Order name: CT Head Brain wo Cont; Complete Time: 13:12 06/24 12:30 Order name: IV Start; Complete Time: 13:13 06/24 15:03 Order name: SARS-COV-2 RT PCR EDMS Administered Medications: No medications were administered Disposition: 06/24/20 14:25 Transfer ordered to [facility]. Diagnosis are Subdural hemorrhage, Paresthesia of skin. - Reason for transfer: Higher level of care. - Accepting physician is DrMauro . - Condition is Stable. - Problem is an ongoing problem. - Symptoms have improved. Signatures: Dispatcher [employer] EDMS Yazan Philip MD MD rn Lewis, Lynsay, RN RN ll1 Bonnie Prieto RN RN ld1 Corrections: (The following items were deleted from the chart) 14:13 13:45 CORONAVIRUS+MR.LAB.BRZ ordered. EDMI EDMS 16:06 14:25 06/24/2020 14:25 Transfer ordered to [facility]. ld1 Diagnosis is Subdural hemorrhage; Paresthesia of skin. Reason for transfer: Higher level of care. Accepting physician is . Condition is Stable. Problem is an ongoing problem. Symptoms have improved. rn
[2020-06-24 16:46] VITALS: BP 138/86; TEMP 97.2; O2SAT 100
== END 2020-06-24 16:06 | disposition short-term general hospital (02) ==
LOC: ER 11:56
DX: I62.00 Nontraumatic subdural hemorrhage, unspecified (principal); I10 Essential (primary) hypertension; Z20.822 Contact with and (suspected) exposure to COVID-19
CPT/HCPCS: 85025; 80048; 36415; 83735; 85610; 85730; 70450; U0003; 99285

== ENCOUNTER 2020-10-29 19:59 | Emergency (ER) | payer OTHER ==
--- OUTSIDE RECORDS SUMMARY | 2020-10-29 20:04 | XMS REPORT | Continuity of Care Document ---
:1965 Author Organization [facility] t Address [address] [place] [address] Care Team Providers Name Role Phone Pcp Primary Care Physician Unavailable Hermelindo MOISE Attending Clinician Max Reese NP Attending Clinician [address], [address] Room Attending Clinician Unavailable Max Haas Attending Clinician Kevin MOISE I. Attending Clinician Rabia Huffman MD Attending Clinician Titus BROWN Attending Clinician Unavailable Oneil MOISE Attending Clinician Shelley MOISE, In Attending Clinician Hermelindo MOISE Attending Clinician Gómez Bagley MD Attending Clinician Ankit GLASS MECHANIC Attending Clinician ONEIL Attending Clinician Unavailable Shahla MOISE Attending Clinician Doctor Unassigned, Name Attending Clinician Unavailable Corinne Millan MD Attending Clinician Titus BROWN Admitting Clinician Unavailable ONEIL Admitting Clinician Unavailable Payers Payer Name Policy Type Policy Effective Date Expiration Date [facility] Number AMBETTERAMBETTER [id number] 2020 [facility] - Medical /2020-Present Center Problems Condition Condition Condition Status Onset Resolution Last Treating Co mments Source Name Details Category Date Date Treatment Clinician Date Weakness Weakness Disease [facility] 00 [place] Midline Midline Disease Active [facility] shift of shift of 06-25 [facility] - brain brain 00:00: Medical 00 [place] HTN HTN Disease Active [facility] (hypertens (hypertens 06-25 kes - ion) ion) 00:00: Medical 00 [place] Subdural Subdural Disease Active Overview: [facility] hematoma hematoma 06-16 Added [facility] - 00:00: automatic Medical 00 ally from Center request for surgery [id number] Allergies, Adverse Reactions, Alerts This patient has no known allergies or adverse reactions. Social History Social Habit Start Date Stop Date Quantity Comments Source Sex Assigned At [facility] Tobacco use and 2020-06-23 2020-06-23 Never used [facility] - exposure 00:00:00 00:00:00 [facility] Alcohol intake 2020-06-23 2020-06-23 [facility]finding[facility] History [facility] 2020-06-17 2020-06-[address] [facility] - Alcohol Frequency 00:00:00 00:00:00 [facility] History [facility] 2020-06-17 2020-06-[address] [facility] - Alcohol Std Drinks 00:00:00 00:00:00 Medica l Center History [facility] 2020-06-17 2020-06-[address] [facility] - Alcohol Binge 00:00:00 00:00:[address] Smoking Status Start Date Stop Date Source Never smoker [facility] edical [place] Medications Ordered Filled Start Stop Current Ordering Indication Dosage Frequency Signature Comments Components Source Medication Medication Date Date Medication? Clinician (SIG) Name Name HYDROcodone 2020- No 1{tbl} Take [address] -acetaminop -06-27 tablet by Kim adan (NORCO 00:00: 23:59 mouth Medic al 5-325) 00 :00 every 8 Center 5-325 mg (eight) per tablet hours as needed for Pain for up to 6 days. Max Daily Amount: 3 tablets ibuprofen 2020- No headache 800mg Take [address] (ADVIL,MOTR 06-09 disorder mg by Kim kes - [place]) 800 MG 00:00: 00:00 mouth Medic al tablet 00 :00 every 6 Center (six) hours as needed for Pain For headaches, took for two days every 6 hours only. Per [employer]ACH[employer]ER Stephanie Jack . lisinopriL 2019-03 Yes 20mg QD Take [address] (PRINIVIL,Z 1-09 by mouth [facility] s - ESTRIL) 20 00:00: daily. Medic al MG tablet 00 Center Vital Signs Vital Name Observation Time Observation Value Comments Source Systolic blood 2020-06-26 12:00:00 123 mm[Hg] [facility] Diastolic blood 2020-06-26 12:00:00 62 mm[Hg] [facility] Heart rate 2020-06-26 12:00:00 75 /min [facility] Body temperature 2020-06-26 12:00:00 35.89 Susan [facility] Respiratory rate 2020-06-26 12:00:00 20 /min [facility] Oxygen saturation in 2020-06-26 12:00:00 99 /min [facility] Arterial blood by Medical Ce nter Pulse oximetry Body height 2020-06-24 18:00:00 172.7 cm [facility] Body weight 2020-06-24 18:00:00 105.688 kg [facility] BMI 2020-06-24 18:00:00 35.43 kg/m2 [facility] Procedures Procedure Date / Time Performed Performing Clinician [facility] BRAIN WITHOUT IV 2020-07-11 07:13:[address] [facility] MAGNESIUM 2020-06-26 06:48:00 Figueroa Daniels [facility] PHOSPHORUS 2020-06-26 06:48:00 Figueroa Daniels [facility] BASIC METABOLIC PANEL 2020-06-26 06:48:00 Figueroa Daniels [facility] I [address] POCT-GLUCOSE METER 2020-06-26 06:24:00 Tracy Brown CH I [facility] CBC W/PLT COUNT & AUTO 2020-06-26 05:38:00 Figueroa Daniels [facility] POCT-GLUCOSE METER 2020-06-26 00:06:00 Tracy Brown CH I [facility] EEG AWAKE AND DROWSY 2020-06-25 15:20:00 Figueroa Daniels [facility] POCT-GLUCOSE METER 2020-06-25 12:22:00 Tracy Brown CH I [facility] CBC W/PLT COUNT & AUTO 2020-06-25 05:01:[address] [facility] MAGNESIUM 2020-06-25 05:01:00 Figueroa Daniels [facility] PHOSPHORUS 2020-06-25 05:01:00 Figueroa Daniels [facility] BASIC METABOLIC PANEL 2020-06-25 05:01:00 Figueroa Daniels CH [address] CTA CAROTID 2020-06-25 04:20:00 Figueroa Daniels [facility] CTA BRAIN 2020-06-25 04:20:00 Figueroa Daniels [facility] MR BRAIN WITHOUT IV 2020-06-24 22:32:[address] [facility] CBC W/PLT COUNT & AUTO 2020-06-24 18:15:[address] [facility] HEPATIC FUNCTION PANEL 2020-06-24 18:15:00 Figueroa Daniels [facility] PROTHROMBIN TIME/INR 2020-06-24 18:15:00 Figueroa Daniels [facility] APTT 2020-06-24 18:15:00 Figueroa Daniels [facility] BASIC METABOLIC PANEL 2020-06-24 18:15:[address] FIBRINOGEN 2020-06-24 18:15:00 Adrianne [facility] MAGNESIUM 2020-06-24 18:15:[facility] 2020-06-24 18:15:00 Adrianne [facility] CT BRAIN WITHOUT IV 2020-06-21 10:11:00 Chris Rosa Idania [facility] BASIC METABOLIC PANEL 2020-06-21 05:07:00 Figueroa Daniels [facility] [address] MAGNESIUM 2020-06-21 05:07:00 Figueroa Daniels [facility] PHOSPHORUS 2020-06-21 05:07:00 Figueroa Daniels [facility] CBC W/PLT COUNT & AUTO 2020-06-21 05:06:00 Figueroa Daniels [facility] CBC W/PLT COUNT & AUTO 2020-06-20 03:52:00 Triston Kat [facility] BASIC METABOLIC PANEL 2020-06-20 03:52:00 Figueroa Daniels [facility] [address] MAGNESIUM 2020-06-20 03:52:00 Figueroa Daniels [facility] PHOSPHORUS 2020-06-20 03:52:00 Figueroa Daniels [facility] CBC W/PLT COUNT & AUTO 2020-06-19 04:12:00 Tirston Kat [facility] BASIC METABOLIC PANEL 2020-06-19 03:33:00 Figueroa Daniels CH [address] MAGNESIUM 2020-06-19 03:33:00 Figueroa Daniesl [facility] PHOSPHORUS 2020-06-19 03:33:00 Figueroa Daniels [facility] CT BRAIN WITHOUT IV 2020-06-18 04:12:[address] [facility] CBC W/PLT COUNT & AUTO 2020-06-18 03:48:00 Triston Kat [facility] BASIC METABOLIC PANEL 2020-06-18 03:48:00 Figueroa Daniels CH I [facility] () [facility] MAGNESIUM 2020-06-18 03:48:00 Figueroa Daniels [facility] PHOSPHORUS 2020-06-18 03:48:00 Figueroa Daniels [facility] CRANIECTOMY/ 2020-06-17 07:33:00 Odilon Casarez [facility] - CRANIOTOMY,EVACUATION Medical Ce nter HEMATOMA CT BRAIN WITHOUT IV 2020-06-17 04:28:00 Aly Reinoso [facility] CBC W/PLT COUNT & AUTO 2020-06-17 03:47:00 Amelia Reyes CH I [facility] BASIC METABOLIC PANEL 2020-06-17 03:47:00 Figueroa Daniels CH I [address] MAGNESIUM 2020-06-17 03:47:00 Figueroa Daniels [facility] PHOSPHORUS 2020-06-17 03:47:00 Figueroa Daniels [facility] LIPID PANEL 2020-06-17 03:47:00 Eric [facility] TSH/FREE T4 IF INDICATED 2020-06-17 03:47:[address] [facility] TROPONIN I 2020-06-17 03:47:00 [facility] ABORH, MANUAL 2020-06-16 21:51:00 Marlena Soto [facility] SARS-COV2/RT-PCR ([facility] & 2020-06-16 21:17:00 Eric [facility] - REF LABS) Medical Center TYPE AND SCREEN, 2020-06-16 21:16:00 Amelia Reyes [facility] - AUTOMATED [facility] CBC W/PLT COUNT & AUTO 2020-06-16 21:16:00 Amelia Reyes I [facility] DIFFERENTIAL [facility] BASIC METABOLIC PANEL 2020-06-16 21:16:00 Amelia Reyes [facility] - (7) Medical Center MAGNESIUM 2020-06-16 21:16:00 Amelia Reyes [facility] PHOSPHORUS 2020-06-16 21:16:00 [facility] PROT[facility]/INR 2020-06-16 21:16:[address] [facility] APTT 2020-06-16 21:16:00 [facility] FIBRIN[facility]EN 2020-06-16 21:16:00 Eric [facility] ECG 12-LEAD 2020-06-16 21:15:02 Eric [facility] XR CHEST 1 VIEW PORTABLE 2020-06-16 20:38:00 Amelia Reyes [facility] - / BEDSIDE [facility] Plan of Care Planned Activity Planned Date Details Comments Source Future Scheduled 2023-06-[address] [facility] Test 00:00:00 (procedure) [code = [facility] 88949222] Future Scheduled 2020-11-[address] [facility] - Test 00:00:00 (#1) [code = [facility] INFLUENZA VACCINE (#1)] Future Scheduled 2015-12-30 SHINGLES VACCINES ([address] [facility] - Test 00:00:00 of 2) [code = [facility] SHINGLES VACCINES (1 of 2)] Future Scheduled 1984 DTAP/TDAP/TD [facility] - Test 00:00:00 VACCINES (1 - Tdap) [facility] [code = DTAP/TDAP/TD VACCINES (1 - Tdap)] Future Scheduled 1983-12-[address] [facility] - Test 00:00:00 SCREENING [code = Medical nter HEPATITIS C SCREENING] Future Scheduled [address] - Test 00:00:00 malignant neoplasm Medical C enter of colon (procedure) [code = 387025277] Encounters Start End Encounter Admission Attending Care Care Encounter Source Date/Time Date/Time Type Type Clinicians Facility Department ID 2020-07-21 2020-07-21 Office Hermelindo MERRILL [id number] 08:02:38 13:12:44 Visit , Odilon AMBULATOR [id number] Y [id number] [id number] 2020-07-03 2020-07-03 Office Hugh [facility] [id number] 12:08:37 14:38:23 Visit Ezequiel AMBULATOR [id number] Max Y 0.2.7.2.686 [id number] 2020-01-29 2020-01-29 [facility] JACQUELINE GaleWW [facility] [id number] 14:33:00 23:59:00 Encounter Jered Cintron [id number] [facility] [id number] [id number] 2020-01-29 2020-01-29 Orders Doctor [facility] [id number] 00:00:00 00:00:00 Only Unassigned, MANUEL [id number] [place] [facility] [id number] [id number] 2020-01-28 2020-01-28 Office Monty [facility] [id number] 11:17:09 12:03:56 Visit [employer] [id number] Lauryn 4.2.7.2.686 Profjasson [id number] nal 044 Office Building One Results Test Test Test Results Result Source Description Time Comments Comments CT, BRAIN, 2020-06- Unlisted WITHOUT IV 23 Reason for CONTRAST 12:50:00 Exam - [facility] Click Yes CENTERName: STEVEN SEPULVEDA and Enter : 1965 Reason Sex: Below->YesU M nlisted Reason for *FINAL REPORT PATIENT ID: Exam->[id number] EXAM: CT HEAD WITHOUT X9A CONTRAST History: 54-year-old male presenting for follow-up of intracranial hemorrhage. Status post left parietal craniotomy.Comparison studies: Multiple studies were used comparison, the most recent brain CT from 06/25/2020. Technique: Axial images were obtained from the skull base to the vertex. Coronal and sagittal reconstructions obtained from the axial data.Dose modulation, iterative reconstruction, and/or weight based adjustment of the mA/kV was utilized to reduce the radiation dose to as low as reasonably achievable. Findings: Skull/extra-axial spaces: Postoperative findings from left parietal craniotomy, with interval decrease in of left subdural hematoma and improved postoperative pneumocephalus. The residual mixed density left frontoparietal subdural hematoma measures 0.6 cm in maximum transverse dimension, and mildly effaces the left lateral frontal sulci. There has been interval resolution of right extra-axial hematoma and rightward midline shift. No blastic or lytic lesions. Brain sulci: Appropriate for age.Ventricles: Normal in size and configuration. No hydrocephalus. Parenchyma: No abnormal densities. No masses or acute/chronic cortical vascular insults. Sellar/suprasellar region: No abnormalitiesCraniocervical junction: Patent foramen magnum. No Chiari one malformation. IMPRESSION: 1.Interval decrease in size of left residual subdural hematoma compared to head CT of 06/25/2020, complete resolution of previously seen right-sided midline shift. 2.Improved postoperative changes from left craniotomy and pneumocephalus. 3.Interval resolution of the small right subdural hematoma. Signed: Zach Melendez MDReport Verified Date/Time: 07/11/2020 12:50:55 Brain 2020-06- Interface, External Ris In - [facility] without IV 23 07/11/2020 12:53 PM CDTFINAL [facility] - Contrast 12:50:00 REPORT Medical EXAM: CT HEAD WITHOUT CONTRAST Center History: 54-year-old male presenting for follow-up of intracranial hemorrhage. Status post left parietal craniotomy.Comparison studies: Multiple studies were used comparison, the most recent brain CT from 06/25/2020. Technique: Axial images were obtained from the skull base to the vertex. Coronal and sagittal reconstructions obtained from the axial data.Dose modulation, iterative reconstruction, and/or weight based adjustment of the mA/kV was utilized to reduce the radiation dose to as low as reasonably achievable. Findings: Skull/extra-axial spaces: Postoperative findings from left parietal craniotomy, with interval decrease in of left subdural hematoma and improved postoperative pneumocephalus. The residual mixed density left frontoparietal subdural hematoma measures 0.6 cm in maximum transverse dimension, and mildly effaces the left lateral frontal sulci. There has been interval resolution of right extra-axial hematoma and rightward midline shift. No blastic or lytic lesions. Brain sulci: Appropriate for age.Ventricles: Normal in size and configuration. No hydrocephalus. Parenchyma: No abnormal densities. No masses or acute/chronic cortical vascular insults. Sellar/suprasellar region: No abnormalitiesCraniocervical junction: Patent foramen magnum. No Chiari one malformation. IMPRESSION: 1.Interval decrease in size of left residual subdural hematoma compared to head CT of 06/25/2020, complete resolution of previously seen right-sided midline shift. 2.Improved postoperative changes from left craniotomy and pneumocephalus. 3.Interval resolution of the small right subdural hematoma. Signed: Zach Melendez MDReport Verified Date/Time: 07/11/2020 12:50:55 Basic Metabolic Panel 2020-06-26 07:20:00 Test Item Value Reference Range Interpretation Comme nts Sodium (test code = 135 meq/L 136-145 L 2951-2) Potassium (test code = 4.0 meq/L 3.5-5.1 2823-3) Chloride (test code = 102 meq/L 98-107 5-0) CO2 (test code = 2027-9) 24 meq/L 22-29 BUN (test code = 3094-0) 15 mg/dL 7-21 Creatinine (test code = 0.94 mg/dL 0.57-1.25 2160-0) Glucose (test code = 89 mg/dL 70-105 2345-7) Calcium (test code = 9.1 mg/dL 8.4-10.2 44000-3) EGFR (test code = 84 mL/min/1.73 [place] [address]-3) NOT ACCURATE CREATININE CLEARANCE IN PREDICTING GLOMERULAR FILTRATION RATE . ESTIMATED GFR I S NOT APPLICABLE FOR DIALYSIS PATIEN TS. SUGEY (test code = SUGEY) Hospital Liaison ID - CAROLINA FOnce on admission and Daily AM afterwardsOnce on admission and Daily AM afterwards Lab Interpretation (test Abnormal code = 78850-0) [facility] 07[facility]20:00 Test Item Value Reference Range Interpretation Comments Magnesium (test code = 2.0 mg/dL 1.6-2.6 93678-6) SUGEY (test code = SUGEY) Hospital Liaison ID - CAR[place]INA FOnce on admission and Daily AM afterwardsOnce on admission and Daily AM afterwards Lab Interpretation Normal (test code = 23228-4) [facility] 07:20:00 Test Item Value Reference Range Interpretation Comments Phosphorus (test code = 3.7 mg/dL 2.3-4.7 2777-1) SUGEY (test code = SUGEY) Hospital Liaison ID - [place] FOnce on admission and Daily AM afterwardsOnce on admission and Daily AM afterwards Lab Interpretation Normal (test code = 84558-9) [facility]OLIC [id number] 07:20:00 Test Item Value Reference Range Interpretation Comments SODIUM (BEAKER) 135 meq/L 136-145 L (test code = 381) POTASSIUM (BEAKER) 4.0 meq/L 3.5-5.1 (test code = 379) CHLORIDE (BEAKER) 102 meq/L 98-107 (test code = 382) CO2 (BEAKER) (test 24 meq/L 22-29 code = 355) BLOOD UREA NITROGEN 15 mg/dL 7-21 (BEAKER) (test code = 354) CREATININE (BEAKER) 0.94 mg/dL 0.57-1.25 (test code = 358) GLUCOSE RANDOM 89 mg/dL 70-105 (BEAKER) (test code = 652) CALCIUM (BEAKER) 9.1 mg/dL 8.4-10.2 (test code = 697) EGFR (BEAKER) (test 84 mL/min/1.73 ESTIMA FRANKI GFR IS code = 1092) sq m NOT ACCURATE CREATININE CLEARANCE IN PREDICTING GLOMERULAR FILTRATION RATE . ESTIMATED GFR I S NOT APPLICABLE FOR DIALYSIS PATIEN TS. Hospital Liaison ID - BENNY FOnce on admission and Daily AM afterwardsOnce on admission and Daily AM [id number] 07:20:00 Test Item Value Reference Range Interpretation Comments MAGNESIUM (BEAKER) (test code = 2.0 mg/dL 1.6-2.6 627) Hospital Liaison ID - BENNY Aguilarce on admission and Daily AM afterwardsOnce on admission and Daily AM [id number] 07:20:00 Test Item Value Reference Range Interpretation Comments PHOSPHORUS (BEAKER) (test code = 3.7 mg/dL 2.3-4.7 604) Hospital Liaison ID - BENNY Hernandez on admission and Daily AM afterwardsOnce on admission and Daily AM afterwardsPOC-Glucose [id number] 06:37:00 Test Item Value Reference Range Interpretation Comments POC-Glucose Meter (test 88 mg/dL 70-110 : TE STED AT [facility] code = 1538) [address] [facility], 770 30: Hospital Liaison/Techni echo ID = [id number] for JOSIAS WAITE Lab Interpretation (test Normal code = 51580-7) [facility] [id number] 06:37:00 Test Item Value Reference Range Interpretation Comments POC-GLUCOSE METER 88 mg/dL 70-110 : TESTED A T [facility] 6720 (BEAKER) (test code = [facility], 1538) [address]: Hospital Liaison/Techni echo ID = [id number] for ZULLY ANDERSON CBC with platelet count + automated [id number] 06:01:00 Test Item Value Reference Range Interpretation Comments WBC (test code = 6690-2) 7.0 See_Comment [A utomated message] The system [employer] generated this result transmitted ref erence range: 3.5 - 10 .5 K/L. The refe rence range was not u sed to interpret this result as normal/abnor mal. RBC (test code = 789-8) 4.27 See_Comment L [Au tomated message] The system [employer] generated this result transmitted ref erence range: 4.63 - 6 .08 M/L. The refe rence range was not u sed to interpret this result as normal/abnor mal. MCHC (test code = 786-4) 35.1 See_Comment L [A utomated message] The system [employer] generated this result transmitted ref erence range: 32.3 - 3 6.5 GM/DL. The refe rence range was not u sed to interpret this result as normal/abnor mal. Hematocrit (test code = 38.7 % 40.1-51 L 4544-3) MCV (test code = 787-2) 90.6 fL 79-92.2 MCH (test code = 785-6) 31.9 pg 25.7-32.2 RDW (test code = 788-0) 12.7 % 11.6-14.4 Platelets (test code = 207 See_Comment [Aut omated message] 777-3) The system [employer] generated this result transmitted ref erence range: 150 - 45 0 K/CU MM. The referen ce range was not u sed to interpret this result as normal/abnor mal. MPV (test code = 11.4 fL 9.4-12.4 79176-8) nRBC (test code = 413) 0 See_Comment [Aut omated message] The system [employer] generated this result transmitted ref erence range: 0 - 0 /1 00 WBC. The refere nce range was not u sed to interpret this result as normal/abnor mal. % Neutros (test code = 54 % 429) % Lymphs (test code = 35 % 430) % Monos (test code = 8 % 431) % Eos (test code = 432) 3 % % Baso (test code = 437) 1 % # Neutros (test code = 3.76 See_Comment [Aut omated message] 670) The system [employer] generated this result transmitted ref erence range: 1.78 - 5 .38 K/L. The refe rence range was not u sed to interpret this result as normal/abnor mal. # Lymphs (test code = 2.40 See_Comment [Auto mated message] 414) The system [employer] generated this result transmitted ref erence range: 1.32 - 3 .57 K/L. The refe rence range was not u sed to interpret this result as normal/abnor mal. # Monos (test code = 0.53 See_Comment [Autom ated message] 415) The system [employer] generated this result transmitted ref erence range: 0.30 - 0 .82 K/L. The refe rence range was not u sed to interpret this result as normal/abnor mal. # Eos (test code = 416) 0.19 See_Comment [Au tomated message] The system [employer] generated this result transmitted ref erence range: 0.04 - 0 .54 K/L. The refe rence range was not u sed to interpret this result as normal/abnor mal. # Baso (test code = 417) 0.05 See_Comment [A utomated message] The system [employer] generated this result transmitted ref erence range: 0.01 - 0 .08 K/L. The refe rence range was not u sed to interpret this result as normal/abnor mal. Immature 0 % 0-1 Granulocytes-Relative (test code = 2801) Lab Interpretation (test Abnormal code = 78206-5) [facility] W/PLT COUNT & AUTO [id number] 06:01:00 Test Item Value Reference Range Interpretation Comments WHITE BLOOD CELL COUNT (BEAKER) 7.0 K/ L 3.5-10.5 (test code = 775) RED BLOOD CELL COUNT (BEAKER) 4.27 M/ L 4.63-6.08 L (test code = 761) HEMOGLOBIN (BEAKER) (test code = 13.6 GM/DL 13.7-17.5 L 410) HEMATOCRIT (BEAKER) (test code = 38.7 % 40.1-51.0 L 411) MEAN CORPUSCULAR VOLUME (BEAKER) 90.6 fL 79.0-92.2 (test code = 753) MEAN CORPUSCULAR HEMOGLOBIN 31.9 pg 25.7-32.2 (BEAKER) (test code = 751) MEAN CORPUSCULAR HEMOGLOBIN CONC 35.1 GM/DL 32.3-36.5 (BEAKER) (test code = 752) RED CELL DISTRIBUTION WIDTH 12.7 % 11.6-14.4 (BEAKER) (test code = 412) PLATELET COUNT (BEAKER) (test 207 K/CU MM 150-450 code = 756) MEAN PLATELET VOLUME (BEAKER) 11.4 fL 9.4-12.4 (test code = 754) NUCLEATED RED BLOOD CELLS 0 /100 WBC 0-0 (BEAKER) (test code = 413) NEUTROPHILS RELATIVE PERCENT 54 % (BEAKER) (test code = 429) LYMPHOCYTES RELATIVE PERCENT 35 % (BEAKER) (test code = 430) MONOCYTES RELATIVE PERCENT 8 % (BEAKER) (test code = 431) EOSINOPHILS RELATIVE PERCENT 3 % (BEAKER) (test code = 432) BASOPHILS RELATIVE PERCENT 1 % (BEAKER) (test code = 437) NEUTROPHILS ABSOLUTE COUNT 3.76 K/ L 1.78-5.38 (BEAKER) (test code = 670) LYMPHOCYTES ABSOLUTE COUNT 2.40 K/ L 1.32-3.57 (BEAKER) (test code = 414) MONOCYTES ABSOLUTE COUNT (BEAKER) 0.53 K/ L 0.30-0.82 (test code = 415) EOSINOPHILS ABSOLUTE COUNT 0.19 K/ L 0.04-0.54 (BEAKER) (test code = 416) BASOPHILS ABSOLUTE COUNT (BEAKER) 0.05 K/ L 0.01-0.08 (test code = 417) IMMATURE GRANULOCYTES-RELATIVE 0 % 0-1 PERCENT (BEAKER) (test code = 2801) POCT-GLUCOSE [id number] 00:19:00 Test Item Value Reference Range Interpretation Comments POC-GLUCOSE METER 114 mg/dL 70-110 H : TESTED A T [facility] 6720 (BEAKER) (test code = [place], 1538) [address]: Hospital Liaison/Techni echo ID = [id number] for DICKSON CHUCKBRE RIVERCorinne EEG AWAKE AND [id number] 17:48:00Reason for exam:->R/o seizures [facility] STEVEN SEPULVEDA : 1965 Sex: MNEUROPHYSIOLOGY EEG REPORT DATES OF TEST: 06/25/20 DATE OF REPORT: 06/25/20 Name: Steven Sepulveda ACC #: [id number] EEG Number: [id number] Start time: 2:59 PM Stop time: 3:19 PM CPT Code: 58252 ICD-10: R56.9 HISTORY: 54-year-old man presented with right sided SDH and experiencing left sided numbness MEDICATIONS THAT COULD AFFECT EEG: No anti-seizure medications TECHNICAL SUMMARY: This is a digital video EEG recorded with 32 input channels reviewed with bipolar and referential montages using the modified combinatorial system nomenclature. DESCRIPTION OF RECORD: During the maximally alert state, a well-developed, well-modulated 10.5-11 Hz posterior dominant rhythm was seen that was symmetric, reactive to eye opening and well regulated. Low voltage beta activity predominated anteriorly in bilateral frontal regions. During drowsiness, there is an attenuation of a posterior dominant rhythm and an increase in fronto-central theta. Stage 2 sleep was reached and characterized by symmetric sleep spindles. HV: Hyperventilation was not performed. PHOTIC STIMULATION: Photic stimulation was performed from 1-33 Hz. Photic stimulation didn't elicit abnormal discharges. EVENTS: No clinical or electrographic seizures were recorded. IMPRESSION: Normal Awake and Drowsy/Sleep EEG CLINICAL CORRELATION: This is a normal record in the awake and sleep states. No focal areas of neuronal dysfunction or epileptiform discharges. No clinical or electrographic seizures were recorded. An EEG without epileptiform discharges does not exclude the possibility of epilepsy. If the clinical suspicion of epilepsy remains, consider additional EEG recordings. Justo Iraheta MD Neurophysiology/ Epilepsy Fellow I have reviewed this electroencephalogram, discussed the findings with the fellow, addended the fellow's report and agree with the overall assessment. Steven Giang MD, MS Clinical Neurophysiology/Ep ilepsy Attending EEG AWAKE AND [id number] 17:48:00Interface, External Ris In - 06/25/2020 5:48 PM CDTNEUROPHYSIOLOGY EEG REPORT DATES OF TEST: 06/25/20 DATE OF REPORT: 06/25/20 Name: Steven Sepulveda ACC #: [id number] EEG Number: [id number] Start time: 2:59 PM Stop time: 3:19 PM CPT Code: 79663 ICD-10: R56.9 HISTORY: 54-year-old man presented with right sided SDH and experiencing left sided numbness MEDICATIONS THAT COULD AF FECT EEG: No anti-seizure medications TECHNICAL SUMMARY: This is a digital video EEG recorded with 32 input channels reviewed with bipolar and referential montages using the modified combinatorial system nomenclature. DESCRIPTION OF RECORD: During the maximally alert state, a well-developed, well-modulated 10.5-11 Hz posterior dominant rhythm was seen that was symmetric, reactive to eye opening and well regulated. Low voltage beta activity predominated anteriorly in bilateral frontal regions. During drowsiness, there is an attenuation of a posterior dominant rhythm and an increase in fronto-central theta. Stage 2 sleep was reached and characterized by symmetric sleep spindles. HV: Hyperventilation was not performed. PHOTIC STIMULATION: Photic stimulation was performed from 1-33 Hz. Photic stimulation didn't elicit abnormal discharges. EVENTS: No clinical or electrographic seizures were recorded. IMPRESSION: Normal Awake and Drowsy/Sleep EEG CLINICAL CORRELATION: This is a normal record in the awake and sleep states.No focal areas of neuronal dysfunction or epileptiform discharges. No clinical or electrographic seizures were recorded. An EEG without epileptiform discharges does not exclude the possibility of epilepsy. If the clinical suspicion of epilepsy remains, consider additional EEG recordings. Justo Iraheta MD Neurophysiology/ Epilepsy Fellow I have reviewed this electroencephalogram, discussed the findings with the fellow, addended the fellow's report and agree with the overall assessment. Steven Giang MD, MS Clinical Neurophysiology/Epilepsy [facility] [id number] 12:41:00 Test Item Value Reference Range Interpretation Comments POC-GLUCOSE METER 140 mg/dL 70-110 H : Notified RN/MD: (DELROYNEETU) (test code = TESTED AT [facility] 6720 1538) [facility], [address]: Hospital Liaison/Techni echo ID = [id number] for JUAN LUIS MARTINEZ CT, CTANGIO [id number] 07:59:00Unlisted Reason for Exam - Click Yes and Enter Reason Below->YesUnlisted Reason for Exam->TIA w/u [facility] STEV[facility]AY[facility]ES : 1965 Sex: MFINAL REPORT CLINICAL HISTORY: Unlisted Reason for ExamTIA w/u TECHNIQUE: Contiguous contrast-enhanced axial images through the neck followed by axial images through the head with coronal and sagittal reformations to assess the arterial circulation. 3-D reconstructions were performed using a volume rendered technique separately on a workstation. This exam was performed according to the departmental dose optimization program which includes automated exposure control, adjustment of the mA and/or kV according to the patient size, and/or use of an iterative reconstruction technique. COMPARISON: MRI brain 06/24/2020, head CT 06/21/2020 FINDINGS: A left-sided craniotomy is again seen. Left greater than right cerebral convexity subdural collections are grossly unchanged allowing for differences in technique. Right midline shift of the septum pellucidum is unchanged. The CT angiogram images of the head reveal no evidence of intracranial aneurysm, critical stenosis, or large vessel occlusion. The major intradural venous sinuses appear patent. There is no hemodynamically significant stenosis in either cervical internal carotid artery by NASCET criteria. The vertebral arteriesin the neck are patent including their origins. There is left vertebral dominance. There are dorsal spondylitic changes in the cervical spine. There are scattered subcentimeter lymph nodes in the neck.The visualized lung apices are clear. IMPRESSION: No evidence for a [place] large vessel occlusion. No evidence of hemodynamically significant stenosis in the cervical carotid or vertebral arteries by NASCET criteria. Signed: Agus Merino MDReport Verified Date/Time: 06/25/2020 07:59:19 Reading Location: [address] Neuro Reading Room CT, CAROTID, [id number] 07:59:00 Unlisted Reason for Exam - Click Yes and Enter Reason Below->No [facility] : 1965 Sex: MFINAL REPORT CLINICAL HISTORY: Unlisted Reason for ExamTIA w/u TECHNIQUE: Contiguous contrast-enhanced axial images through the neck followed by axial images through the head with coronal and sagittal reformations to assess the arterial circulation. 3-D reconstructions were performed using a volume rendered technique separately on a workstation. This exam was performed according to the departmental dose optimization program which includes automated exposure control, adjustment of the mA and/or kV according to the patient size, and/or use of an iterative reconstruction technique. COMPARISON: MRI brain 06/24/2020, head CT 06/21/2020 FINDINGS: A left-sided craniotomy is again seen. Left greater than right cerebral convexity subdural collections are grossly unchanged allowing for differences in technique. Right midline shift of the septum pellucidum is unchanged. The CT angiogram images of the head reveal no evidence of intracranial aneurysm, critical stenosis, or large vessel occlusion. The major intradural venous sinuses appear patent. There is no hemodynamically significant stenosis in either cervical internal carotid artery by NASCET criteria. The vertebral arteriesin the neck are patent including their origins. There is left vertebral dominance. There are dorsal spondylitic changes in the cervical spine. There are scattered subcentimeter lymph nodes in the neck.The visualized lung apices are clear. IMPRESSION: No evidence for a [place] large vessel occlusion. No evidence of hemodynamically significant stenosis in the cervical carotid or vertebral arteries by NASCET criteria. Signed: Agus Merino MDReport Verified Date/Time: 06/25/2020 07:59:19 Reading Location: [address] Neuro Reading Room CTA [id number] 07:59:00Interface, External Ris In - 06/25/2020 8:01 AM CDTFINAL REPORT CLINICAL HISTORY: Unlisted Reason for ExamTIA w/u TECHNIQUE: Contiguous contrast-enhanced axial images through the neck followed by axial images through the head with coronal and sagittal reformations to assess thearterial circulation. 3-D reconstructions were performed using a volume rendered technique separately on a workstation. This exam was performed according to the departmental dose optimization program which includes automated exposure control, adjustment of the mA and/or kV according to the patient size, and/or use of an iterative reconstruction technique. COMPARISON: MRI brain 06/24/2020, head CT 06/21/2020 FINDINGS: A left-sided craniotomy is again seen. Left greater than right cerebral convexity subdural collections are grossly unchanged allowing for differences in technique. Right midline shift of the septum pellucidum is unchanged. The CT angiogram images of the head reveal no evidence of intracranial aneurysm, critical stenosis, or large vessel occlusion. The major intradural venous sinuses appear patent. There is no hemodynamically significant stenosis in either cervical internal carotid artery by NASCET criteria. The vertebral arteries in the neck are patent including their origins. There is left vertebral dominance. There are dorsal spondylitic changes in the cervical spine. There are scattered subcentimeter lymph nodes in the neck. The visualized lung apices are clear. IMPRESSION: No evidence for a [place] large vessel occlusion. No evidence of hemodynamically significant daxa nosis in the cervical carotid or vertebral arteries by NASCET criteria. Signed: Agus Merino Verified Date/Time: 06/25/2020 07:59:19 Reading Location: [address] Neuro Reading Room [facility] carotid 2020-06-25 07:59:00Interface, External Ris In - 06/25/2020 8:01 AM CDTFINAL REPORT CLINICAL HISTORY: Unlisted Reason for ExamTIA w/u TECHNIQUE: Contiguous contrast-enhanced axial images through the neck followed by axial images through the head with coronal and sagittal reformations to assess thearterial circulation. 3-D reconstructions were performed using a volume rendered technique separately on a workstation. This exam was performed according to the departmental dose optimization program which includes automated exposure control, adjustment of the mA and/or kV according to the patient size, and/or use of an iterative reconstruction technique. COMPARISON: MRI brain 06/24/2020, head CT 06/21/2020 FINDINGS: A left-sided craniotomy is again seen. Left greater than right cerebral convexity subdural collections are grossly unchanged allowing for differences in technique. Right midline shift of the septum pellucidum is unchanged. The CT angiogram images of the head reveal no evidence of intracranial aneurysm, critical stenosis, or large vessel occlusion. The major intradural venous sinuses appear patent. There is no hemodynamically significant stenosis in either cervical internal carotid artery by NASCET criteria. The vertebral arteries in the neck are patent including their origins. There is left vertebral dominance. There are dorsal spondylitic changes in the cervical spine. There are scattered subcentimeter lymph nodes in the neck. The visualized lung apices are clear. IMPRESSION: No evidence for a [place] large vessel occlusion. No evidence of hemodynamically significant daxa nosis in the cervical carotid or vertebral arteries by NASCET criteria. Signed: Agus Merino Verified Date/Time: 06/25/2020 07:59:19 Reading Location: [address] Neuro Reading Room [facility] 2020-06-25 05:38:00 Test Item Value Reference Range Interpretation Comments MAGNESIUM (BEAKER) 2.2 mg/dL 1.6-2.6 Specimen slightly (test code = 627) hemolyzed Hospital Liaison ID - BSOnce on admission and Daily AM afterwardsOnce on admission and Daily AM [id number] 05:38:00 Test Item Value Reference Range Interpretation Comments PHOSPHORUS (BEAKER) 3.9 mg/dL 2.3-4.7 Specimen slightly (test code = 604) hemolyzed Hospital Liaison ID - BSOnce on admission and Daily AM afterwardsOnce on admission and Daily AM afterwardsBASIC METABOLIC [id number] 05:38:00 Test Item Value Reference Range Interpretation Comments SODIUM (BEAKER) 135 meq/L 136-145 L (test code = 381) POTASSIUM (BEAKER) 4.8 meq/L 3.5-5.1 Specimen slightly (test code = 379) hemolyzed CHLORIDE (BEAKER) 102 meq/L 98-107 (test code = 382) CO2 (BEAKER) (test 23 meq/L 22-29 code = 355) BLOOD UREA NITROGEN 13 mg/dL 7-21 (BEAKER) (test code = 354) CREATININE (BEAKER) 0.95 mg/dL 0.57-1.25 Specimen slightly (test code = 358) hemolyzed GLUCOSE RANDOM 89 mg/dL 70-105 (BEAKER) (test code = 652) CALCIUM (BEAKER) 9.3 mg/dL 8.4-10.2 (test code = 697) EGFR (BEAKER) (test 83 mL/min/1.73 ESTIMA FRANKI GFR IS code = 1092) sq m NOT ACCURATE CREATININE CLEARANCE IN PREDICTING GLOMERULAR FILTRATION RATE . ESTIMATED GFR I S NOT APPLICABLE FOR DIALYSIS PATIEN TS. Hospital Liaison ID - BSOnce on admission and Daily AM afterwardsOnce on admission and Daily AM afterwardsCBC W/PLT COUNT & AUTO [id number] 05:17:00 Test Item Value Reference Range Interpretation Comments WHITE BLOOD CELL COUNT (BEAKER) 6.3 K/ L 3.5-10.5 (test code = 775) RED BLOOD CELL COUNT (BEAKER) 4.36 M/ L 4.63-6.08 L (test code = 761) HEMOGLOBIN (BEAKER) (test code = 13.6 GM/DL 13.7-17.5 L 410) HEMATOCRIT (BEAKER) (test code = 41.1 % 40.1-51.0 411) MEAN CORPUSCULAR VOLUME (BEAKER) 94.3 fL 79.0-92.2 H (test code = 753) MEAN CORPUSCULAR HEMOGLOBIN 31.2 pg 25.7-32.2 (BEAKER) (test code = 751) MEAN CORPUSCULAR HEMOGLOBIN CONC 33.1 GM/DL 32.3-36.5 (BEAKER) (test code = 752) RED CELL DISTRIBUTION WIDTH 12.3 % 11.6-14.4 (BEAKER) (test code = 412) PLATELET COUNT (BEAKER) (test 191 K/CU MM 150-450 code = 756) MEAN PLATELET VOLUME (BEAKER) 11.4 fL 9.4-12.4 (test code = 754) NUCLEATED RED BLOOD CELLS 0 /100 WBC 0-0 (BEAKER) (test code = 413) NEUTROPHILS RELATIVE PERCENT 60 % (BEAKER) (test code = 429) LYMPHOCYTES RELATIVE PERCENT 30 % (BEAKER) (test code = 430) MONOCYTES RELATIVE PERCENT 8 % (BEAKER) (test code = 431) EOSINOPHILS RELATIVE PERCENT 2 % (BEAKER) (test code = 432) BASOPHILS RELATIVE PERCENT 1 % (BEAKER) (test code = 437) NEUTROPHILS ABSOLUTE COUNT 3.74 K/ L 1.78-5.38 (BEAKER) (test code = 670) LYMPHOCYTES ABSOLUTE COUNT 1.86 K/ L 1.32-3.57 (BEAKER) (test code = 414) MONOCYTES ABSOLUTE COUNT (BEAKER) 0.47 K/ L 0.30-0.82 (test code = 415) EOSINOPHILS ABSOLUTE COUNT 0.12 K/ L 0.04-0.54 (BEAKER) (test code = 416) BASOPHILS ABSOLUTE COUNT (BEAKER) 0.05 K/ L 0.01-0.08 (test code = 417) IMMATURE GRANULOCYTES-RELATIVE 1 % 0-1 PERCENT (BEAKER) (test code = 2801) MR, BRAIN, WITHOUT [id number] 01:47:00Unlisted Reason for Exam - Click Yes and Enter Reason Below->No [facility] : 1965 Sex: MFINAL REPORT MRI Brain without contrast Clinical History: TIA, initial exam Technique: MRI of the brain utilizing axial T2, FLAIR, GRE, DWI; sagittal and coronal T1-weighted images. Comparisons: CT head dated 06/21/2020 Findings:Status post left sided craniotomy for drainage of a left cerebral convexity subdural hematoma.Mixed density left cerebral convexity subdural hematoma is again noted measuring up to 1.0 cm, similar when compared to prior. Few small foci of gas within the collection likely related to recent instrumentation. There is mild mass effect on adjacent structures. Thin mixed density subdural hematoma along the right superior cerebral convexity measuring up to 7 mm possibly slightly increased in size in the interval however differences in technique limitsevaluation. There is hyperintense FLAIR signal within the subarachnoid spaces of the right superior surgical convexity suggestive of small volume subarachnoid hemorrhage. There is 5 mm of rightward midline shift when measured at the septum pellucidum, unchanged. Mild effacement of the left lateral ventricle. Multiple bilateral T2 and FLAIR hyperintense white matter foci likely represent chronic whitematter microvascular disease.There is no evidence of acute infarct . The craniocervical junction i s preserved. The major intracranial flow-voids appear patent. Paranasal sinuses are clear. Middle ears and mastoid air cells are clear. Intraorbital contents are unremarkable. Postsurgical changes inthe left scalp. IMPRESSION: Status post left sided craniotomy for drainage of a left cerebral convexity subdural hematoma. Grossly unchanged size of the left cerebral convexity subdural with persistentmass effect on adjacent structures including mild effacement of the left lateral ventricle. Unchanged 5 mm of rightward midline shift.. Possible slight interval increase in size of the mixed density subdural hematoma along the right cerebral convexity. Findings above suggestive of small volume subara chnoid hemorrhage in the right cerebral hemisphere. Signed: Reena Cardoso MDReport Verified Date/Time: 06/25/2020 01:47:24 MR brain without IV contrast 2020-06-25 01:47:00Interface, External Ris In - 06/25/2020 1:50 AM CDTFINAL REPORT MRI Brain without contrast Clinical History: TIA, initial exam Technique: MRI of the brain utilizing axial T2, FLAIR, GRE, DWI; sagittal and coronal T1-weighted images. Comparisons: CT head dated 06/21/2020 Findings:Status post left sided craniotomy for drainage of a left cerebral convexity subdural hematoma.Mixed density left cerebral convexity subdural hematoma is again noted measuring up to 1.0 cm, similar when compared to prior. Few small foci of gas within the collection likely related to recent instrumentation. There is mild mass effect on adjacent structures. Thin mixed density subdural hematoma along the right superior cerebral convexity measuring up to 7 mm possibly slightly increased in size in the interval however differences in technique limits evaluation. There is hyperintense FLAIR signal within the subarachnoid spaces of the right superior surgical convexity suggestive of small volume subarachnoid hemorrhage. There is 5 mm of rightward midline shift when measured at the septum pellucidum, unchanged. Mild effacement of the left lateral ventricle. Multiple bilateral T2 and FLAIR hyperintense whit e matter foci likely represent chronic white matter microvascular disease.There is no evidence of acute infarct . The craniocervical junction is preserved. The major intracranial flow-voids appear patent. Paranasal sinuses are clear. Middle ears and mastoid air cells are clear. Intraorbital contents are unremarkable. Postsurgical changes in the left scalp. IMPRESSION: Status post left sided craniotomy for drainage of a left cerebral convexity subdural hematoma. Grossly unchanged size of the left cerebral convexity subdural with persistent mass effect on adjacent structures including mild effacement of the left lateral ventricle. Unchanged 5 mm of rightward midline shift.. Possible slight interval increase in size of the mixed density subdural hematoma along the right cerebral convexity. Findings above suggestive of small volume subarachnoid hemorrhage in the right cerebral hemisphere. Signed: Reena Cardoso Verified Date/Time: 06/25/2020 01:47:24 [facility] function [id number] 18:54:00 Test Item Value Reference Range Interpretation Comments Protein, Total (test 7.3 See_Comment [Autom ated code = 2885-2) message] The system which generated this result transmit franki reference range : 6.0 - 8.3 gm/dL . The reference range was not u sed to interpret th is result as normal/abnormal . Albumin (test code = 4.3 g/dL 3.5-5 69276-4) Total Bilirubin (test 0.5 mg/dL 0.2-1.2 code = 1975-2) Bilirubin, Direct 0.2 mg/dL 0.1-0.5 (test code = 1968-7) Alkaline Phosphatase 60 U/L 40-150 (test code = 6768-6) AST (test code = 21 U/L 5-34 1920-8) ALT (test code = 31 U/L 6-55 1742-6) SUGEY (test code = SUGEY) Hospital Liaison ID - BS Lab Interpretation Normal (test code = 89922-3) [facility] [id number] 18:54:00 Test Item Value Reference Range Interpretation Comments TOTAL PROTEIN (BEAKER) (test code = 7.3 gm/dL 6.0-8.3 770) ALBUMIN (BEAKER) (test code = 1145) 4.3 g/dL 3.5-5.0 BILIRUBIN TOTAL (BEAKER) (test code 0.5 mg/dL 0.2-1.2 = 377) BILIRUBIN DIRECT (BEAKER) (test 0.2 mg/dL 0.1-0.5 code = 706) ALKALINE PHOSPHATASE (BEAKER) (test 60 U/L 40-150 code = 346) AST (SGOT) (BEAKER) (test code = 21 U/L 5-34 353) ALT (SGPT) (BEAKER) (test code = 31 U/L 6-55 347) Hospital Liaison ID - BSBASIC METABOLIC [id number] 18:53:00 Test Item Value Reference Range Interpretation Comments SODIUM (BEAKER) 138 meq/L 136-145 (test code = 381) POTASSIUM (BEAKER) 4.2 meq/L 3.5-5.1 (test code = 379) CHLORIDE (BEAKER) 104 meq/L 98-107 (test code = 382) CO2 (BEAKER) (test 26 meq/L 22-29 code = 355) BLOOD UREA NITROGEN 12 mg/dL 7-21 (BEAKER) (test code = 354) CREATININE (BEAKER) 0.89 mg/dL 0.57-1.25 (test code = 358) GLUCOSE RANDOM 104 mg/dL 70-105 (BEAKER) (test code = 652) CALCIUM (BEAKER) 9.2 mg/dL 8.4-10.2 (test code = 697) EGFR (BEAKER) (test 89 mL/min/1.73 ESTIMA FRANKI GFR IS code = 1092) sq m NOT ACCURATE CREATININE CLEARANCE IN PREDICTING GLOMERULAR FILTRATION RATE . ESTIMATED GFR I S NOT APPLICABLE FOR DIALYSIS PATIEN TS. Hospital Liaison ID - [id number] 18:53:00 Test Item Value Reference Range Interpretation Comments MAGNESIUM (BEAKER) (test code = 2.2 mg/dL 1.6-2.6 627) Hospital Liaison ID - [id number] 18:53:00 Test Item Value Reference Range Interpretation Comments PHOSPHORUS (BEAKER) (test code = 3.4 mg/dL 2.3-4.7 604) Hospital Liaison ID - [id number] 18:48:00 Test Item Value Reference Range Interpretation Comments Fibrinogen (test code = 3255-7) 545 mg/dl 225-434 H Lab Interpretation (test code = Abnormal 93477-3) [facility] Center[facility]IB[facility]IN[facility]2021-[facility] 18:48:00 Test Item Value Reference Range Interpretation Comments FIBRINOGEN LEVEL (BEAKER) (test 545 mg/dl 225-434 H code = 658) [id number] 18:39:00 Test Item Value Reference Range Interpretation Comments PTT (test code = 37989-8) 35.0 See_Comment [ Automated message] The system [employer] generated this result transmitted ref erence range: 22.5 - 3 6.0 seconds. The re ference range was not u sed to interpret this result as normal/abnor mal. Lab Interpretation (test Normal code = 25697-6) [facility] [id number] 18:39:00 Test Item Value Reference Range Interpretation Comments PARTIAL THROMBOPLASTIN TIME 35.0 seconds 22.5-36.0 (BEAKER) (test code = 760) Prothrombin time/[id number] 18:38:00 Test Item Value Reference Interpretation Comments Range Protime (test code = 13.9 See_Comment [Autom ated 5902-2) message] The system which generated this result transmitted reference range : 11.9 - 14.2 seconds. The reference range was not used to interpret this result as normal/abnormal . INR (test code = 1.10 See_Comment [Automated 8901-6) message] The system which generated this result [...] valves. Lab Interpretation Normal (test code = 27123-4) [facility] CenterPROTHROMBIN TIME/[id number] 18:38:00 Test Item Value Reference Range Interpretation Comments PROTIME (BEAKER) 13.9 seconds 11.9-14.2 (test code = 759) INR (BEAKER) (test 1.10 See_Comment [Automat ed message] code = 370) The system [employer] generated this result transmitted ref erence range: <=5.90. The reference range was not used to int erpret this result as normal/abnormal . Effective 08/16/2018: PT Reference Range ChangeNew: 11.9-14.2 Previous: 11.7- 14.7RECOMMENDED COUMADIN/WARFARIN INR THERAPY RANGESSTANDARD DOSE: 2.0-3.0 Includes: PROPHYLAXIS for venous thrombosis, systemic embolization; TREATMENT for venous thrombosis and/or pulmonary embolus.HIGH RISK: Target INR is2.5-3.5 for patients wiht mechanical heart valves.CBC W/PLT COUNT & AUTO [id number] 18:26:00 Test Item Value Reference Range Interpretation Comments WHITE BLOOD CELL COUNT (BEAKER) 6.1 K/ L 3.5-10.5 (test code = 775) RED BLOOD CELL COUNT (BEAKER) 4.37 M/ L 4.63-6.08 L (test code = 761) HEMOGLOBIN (BEAKER) (test code = 13.8 GM/DL 13.7-17.5 410) HEMATOCRIT (BEAKER) (test code = 40.4 % 40.1-51.0 411) MEAN CORPUSCULAR VOLUME (BEAKER) 92.4 fL 79.0-92.2 H (test code = 753) MEAN CORPUSCULAR HEMOGLOBIN 31.6 pg 25.7-32.2 (BEAKER) (test code = 751) MEAN CORPUSCULAR HEMOGLOBIN CONC 34.2 GM/DL 32.3-36.5 (BEAKER) (test code = 752) RED CELL DISTRIBUTION WIDTH 12.5 % 11.6-14.4 (BEAKER) (test code = 412) PLATELET COUNT (BEAKER) (test 199 K/CU MM 150-450 code = 756) MEAN PLATELET VOLUME (BEAKER) 11.4 fL 9.4-12.4 (test code = 754) NUCLEATED RED BLOOD CELLS 0 /100 WBC 0-0 (BEAKER) (test code = 413) NEUTROPHILS RELATIVE PERCENT 71 % (BEAKER) (test code = 429) LYMPHOCYTES RELATIVE PERCENT 21 % (BEAKER) (test code = 430) MONOCYTES RELATIVE PERCENT 6 % (BEAKER) (test code = 431) EOSINOPHILS RELATIVE PERCENT 1 % (BEAKER) (test code = 432) BASOPHILS RELATIVE PERCENT 1 % (BEAKER) (test code = 437) NEUTROPHILS ABSOLUTE COUNT 4.35 K/ L 1.78-5.38 (BEAKER) (test code = 670) LYMPHOCYTES ABSOLUTE COUNT 1.25 K/ L 1.32-3.57 L (BEAKER) (test code = 414) MONOCYTES ABSOLUTE COUNT (BEAKER) 0.38 K/ L 0.30-0.82 (test code = 415) EOSINOPHILS ABSOLUTE COUNT 0.08 K/ L 0.04-0.54 (BEAKER) (test code = 416) BASOPHILS ABSOLUTE COUNT (BEAKER) 0.03 K/ L 0.01-0.08 (test code = 417) IMMATURE GRANULOCYTES-RELATIVE 0 % 0-1 PERCENT (BEAKER) (test code = 2801) CT, BRAIN, WITHOUT [id number] 10:26:00Unlisted Reason for Exam - Click Yes and Enter Reason Below->YesUnlisted Reason for Exam->[facility] : 1965 Sex: MFINAL REPORT CT, BRAIN, WITHOUT CONTRAST CLINICAL INDICATION: [...] extra-axial hematoma is similarly unchanged, measuring up to6 mm. Midline shift is not significantly changed [...] examination is recommended for further characterization. Signed: Edna Deng MDReport Verified Date/Time: 06/21/2020 10:26:18 Reading Location: [facility] C013V Neuro Reading Room BASIC METABOLIC [id number] 06:08:00 Test Item Value Reference Range Interpretation [...] 697) EGFR (BEAKER) (test 79 mL/min/1.73 ESTIMA FRANKI GFR IS code = 1092) sq m NOT ACCURATE CREATININE CLEARANCE IN PREDICTING GLOMERULAR FILTRATION RATE . ESTIMATED GFR I S NOT APPLICABLE FOR DIALYSIS PATIEN TS. Hospital Liaison ID - [id number] 06:08:00 Test Item Value Reference Range Interpretation Comments MAGNESIUM (BEAKER) (test code = 2.0 mg/dL 1.6-2.6 627) Hospital Liaison ID - [id number] 06:08:00 Test Item Value Reference Range Interpretation Comments PHOSPHORUS (BEAKER) (test code = 3.8 mg/dL 2.3-4.7 604) Hospital Liaison ID - DBCBC W/PLT COUNT & AUTO [id number] 05:37:00 Test Item Value Reference Range Interpretation [...] (BEAKER) (test code = 2801) BASIC METABOLIC [id number] 04:37:00 Test Item Value Reference Range Interpretation [...] 697) EGFR (BEAKER) (test 84 mL/min/1.73 ESTIMA FRANKI GFR IS code = 1092) sq m NOT ACCURATE CREATININE CLEARANCE IN PREDICTING GLOMERULAR FILTRATION RATE . ESTIMATED GFR I S NOT APPLICABLE FOR DIALYSIS PATIEN TS. Hospital Liaison ID - [id number] 04:37:00 Test Item Value Reference Range Interpretation Comments MAGNESIUM (BEAKER) (test code = 2.1 mg/dL 1.6-2.6 627) Hospital Liaison ID - [id number] 04:37:00 Test Item Value Reference Range Interpretation Comments PHOSPHORUS (BEAKER) (test code = 3.7 mg/dL 2.3-4.7 604) Hospital Liaison ID - EDASICBC W/PLT COUNT & AUTO [id number] 04:25:00 Test Item Value Reference Range Interpretation [...] = 2801) CBC W/PLT COUNT & AUTO [id number] 04:36:00 Test Item Value Reference Range Interpretation [...] 0-1 PERCENT (BEAKER) (test code = 2801) [id number] 03:54:00 Test Item Value Reference Range Interpretation Comments MAGNESIUM (BEAKER) 2.0 mg/dL 1.6-2.6 Specimen slightly (test code = 627) hemolyzed Hospital Liaison ID - CARO [id number] 03:54:00 Test Item Value Reference Range Interpretation Comments PHOSPHORUS (BEAKER) 3.4 mg/dL 2.3-4.7 Specimen slightly (test code = 604) hemolyzed Hospital Liaison ID - CARO MBASIC METABOLIC [id number] 03:54:00 Test Item Value Reference Range Interpretation [...] 697) EGFR (BEAKER) (test 86 mL/min/1.73 ESTIMA FRANKI GFR IS code = 1092) sq m NOT ACCURATE CREATININE CLEARANCE IN PREDICTING GLOMERULAR FILTRATION RATE . ESTIMATED GFR I S NOT APPLICABLE FOR DIALYSIS PATIEN TS. Hospital Liaison ID - CARO MCT, BRAIN, WITHOUT [id number] 07:26:00Unlisted Reason for Exam - Click Yes and Enter Reason Below->No [facility]PUL[facility]EDA : 1965 Sex: MFINAL REPORT CT Head [...] attention on follow-up is recommended. Signed: Agus [facility] Verified Date/Time: 06/18/2020 07:26:39 Reading Location: [address] Neuro Reading Room BASIC METABOLIC [id number] 04:40:00 Test Item Value Reference Range Interpretation [...] 697) EGFR (BEAKER) (test 78 mL/min/1.73 ESTIMA FRANKI GFR IS code = 1092) sq m NOT ACCURATE CREATININE CLEARANCE IN PREDICTING GLOMERULAR FILTRATION RATE . ESTIMATED GFR I S NOT APPLICABLE FOR DIALYSIS PATIEN TS. Hospital Liaison ID - CARO [id number] 04:40:00 Test Item Value Reference Range Interpretation Comments MAGNESIUM (BEAKER) (test code = 1.9 mg/dL 1.6-2.6 627) Hospital Liaison ID - CARO [id number] 04:40:00 Test Item Value Reference Range Interpretation Comments PHOSPHORUS (BEAKER) (test code = 3.5 mg/dL 2.3-4.7 604) Hospital Liaison ID - CARO MCBC W/PLT COUNT & AUTO [id number] 04:27:00 Test Item Value Reference Range Interpretation [...] (BEAKER) (test code = 2801) ECG 12 [id number] 13:59:49Interface, External Ris In - 06/17/2020 1:59 PM CDTVentricular Rate 50 BPMAtrial Rate 50 BPMP-R Interval 194 msQRS Duration 94 msQ-T Interval 430 msQTC Calculation(Bazett) 392 msP Honaker 31 degreesR Honaker -7 degreesT Honaker 6 degreesSinus bradycardiaOtherwise normal ECGNo previous ECGs availableConfirmed by MD Tanisha, Roberto Carlos ([id number]) on 06/17/2020 1:59:44 PM [facility]/Free T4 If [id number] 08:07:00 Test Item Value Reference Range Interpretation Comments TSH (test code = 2.822 See_Comment [Automated 55500-2) message] The system which generated this result transmit franki reference range : 0.350 - 4.940 uIU/mL. The reference range was not used to interpret this result as normal/abnormal . SUGEY (test code = SUGEY) Hospital Liaison ID - PIAYA L Lab Interpretation Normal (test code = 56156-1) [facility]/FREE T4 IF [id number] 08:07:00 Test Item Value Reference Range Interpretation Comments THYROID STIMULATING HORMONE 2.822 uIU/mL 0.350-4.940 (BEAKER) (test code = 772) Hospital Liaison ID - JUAN LCT, BRAIN, WITHOUT [id number] 08:05:00Followup from [place] scan. Previously read as 2cm diameter with 12-13mm MLSUnlisted Reason for Exam - Click Yes and Enter Reason Below->No [facility] : 1965 Sex: MFINAL REPORT CT Head [...] MDReport Verified Date/Time: 06/17/2020 08:05:59 Reading Location: [facility] C013V Neuro Reading Room [facility] [place] [id number] 04:24:00 Test Item Value Reference Range Interpretation Comments Troponin I (test code = <0.01 0-0.03 66165-2) SUGEY (test code = SUGEY) Troponin I [...] acute neurological disease, and persistent tachyarrhythmia.Opera tor ID - PIAYA L Lab Interpretation (test Normal code = 74759-4) [facility] [id number] 04:24:00 Test Item Value Reference Range Interpretation [...] failure, acidosis, acute neurological disease, and persistent tachyarrhythmia.Hospital Liaison ID - PIAYA LLipid panel 2020-06-17 04:22:00 Test Item Value Reference Range Interpretation Comments Triglycerides (test 184 mg/dL code = 2571-8) Cholesterol (test code 193 mg/dL = 2093-3) HDL (test code = 34 mg/dL 2085-9) LDL Calculated (test 122 mg/dL code = 42150-4) SUGEY (test code = SUGEY) Triglyceride Reference Range: Low Risk <150 Borderline 150-199 High Risk 200-499 Very High Risk >=500 Cholesterol Reference Range: Low Risk <200 Borderline 200-239 High Risk >240 HDL Cholesterol Reference Range: Low Risk >=60 High Risk <40 LDL Cholesterol Reference Range: Optimal <100 Near Optimal 100-129 Borderline 130-159 High 160-189 Very High >=190 Hospital Liaison MATHEUS MARTINEZ Maurice DONALD [facility] METABOLIC [id number] 04:22:00 Test Item Value Reference Range Interpretation [...] 697) EGFR (BEAKER) (test 86 mL/min/1.73 ESTIMA FRANKI GFR IS code = 1092) sq m NOT ACCURATE CREATININE CLEARANCE IN PREDICTING GLOMERULAR FILTRATION RATE . ESTIMATED GFR I S NOT APPLICABLE FOR DIALYSIS PATIEN TS. Hospital Liaison ID Sarahi MARTINEZ [id number] 04:22:00 Test Item Value Reference Range Interpretation Comments MAGNESIUM (BEAKER) (test code = 2.1 mg/dL 1.6-2.6 627) Hospital Liaison MATHEUS MARTINEZ [id number] 04:22:00 Test Item Value Reference Range Interpretation Comments PHOSPHORUS (BEAKER) (test code = 3.7 mg/dL 2.3-4.7 604) Hospital Liaison MATHEUS MARTINEZ LLIPID [id number] 04:22:00 Test Item Value Reference Range Interpretation [...] Borderline 130-159 High 160-189 Very High >=190 Hospital Liaison ID - PIAYALCBC W/PLT COUNT & AUTO [id number] 04:02:00 Test Item Value Reference Range Interpretation [...] Not Detected, (test code = Negative, See 62715-4) external report for linked test SARS-COV-2 [facility] PERFORMING LAB (test code = 05146-0) SUGEY (test code = Negative results do [...] of the Act. Fact Sheet for Healthcare Providers:https://www.Film Fresh.Alektrona/Documents/Xper t%20Xpress%20SARS%20CoV- 2/Fact%20Sheets/302-3802 %45ZDBL-MYZ-3%20HEALTHCA RE%20PROVIDERS%20FACT%20 SHEET.pdf Fact Sheet for Healthcare Patients:https://www.Shotfarm/Documents/Xpert %20Xpress%20SARS%20CoV-2 /Fact%20Sheets/302-3801% 67LKMZ-KTS-0%20PATIENT%2 0FACT%20SHEET.pdf Performing Laboratory:[facility] [place], [place] [address] [place], [place] [address]ARS-COV2/RT-PCR ([facility])2020-06-16 23:03:00 Test Item Value Reference Range Interpretation Comments SARS-COV2/RT-PCR (test code Negative Not Detected, Negative, = 5159555) See external report for linked test SARS-COV-2 PERFORMING LAB [facility] (test code = 6271210) Negative results do not preclude SARS-CoV-2 infection [...] of the Act.Fact Sheet for Healthcare Pro viders:https://www.Unica/Documents/Xpert%20Xpress%20SARS%20CoV-2/Fact%20Sh eets/302-3802%22KBMV-BBC-4%20HEALTHCARE%20PROVIDERS%20FACT%20SHEET.pdfFact Sheet for Healthcare Patients:https://www.Mashape.Alektrona/Documents/Xpert%20Xpress%20SARS%20CoV-2/Fact%20Sheets/3023801%20SARS-COV -2%20PATIENT%20FACT%20SHEET.pdfPerforming Laboratory:[facility], [place] [address]FPGDP, [id number] 22:13:00 Test Item Value Reference Range Interpretation Comments ABO Grouping (test code = 2588) O Rh Factor (test code = 2589) [facility], [id number] 21:59:00 Test Item Value Reference Range Interpretation Comments ABO/RH AUTOMATED (BEAKER) (test O POSITIVE code = 2260) Ab Scrn (test code = 890-4) NEGATIVE [facility] [id number] 21:56:00 Test Item Value Reference Range Interpretation Comments PARTIAL THROMBOPLASTIN TIME 32.8 seconds 22.5-36.0 (BEAKER) (test code = 760) [id number] 21:56:00 Test Item Value Reference Range Interpretation Comments FIBRINOGEN LEVEL (BEAKER) (test 289 mg/dl 225-434 code = 658) PROTHROMBIN TIME/[id number] 21:55:00 Test Item Value Reference Range Interpretation Comments PROTIME (BEAKER) 13.7 seconds 11.9-14.2 (test code = 759) INR (BEAKER) (test 1.10 See_Comment [Automat ed message] code = 370) The system [employer] generated this result transmitted ref erence range: <=5.90. The reference range was not used to int erpret this result as normal/abnormal . Effective 08/16/2018: PT Reference Range ChangeNew: 11.9-14.2 Previous: 11.7- 14.7RECOMMENDED COUMADIN/WARFARIN INR THERAPY RANGESSTANDARD DOSE: 2.0-3.0 Includes: PROPHYLAXIS for venous thrombosis, systemic embolization; TREATMENT for venous thrombosis and/or pulmonary embolus.HIGH RISK: Target INR is2.5-3.5 for patients wiht mechanical heart valves.BASIC METABOLIC [id number] 21:45:00 Test Item Value Reference Range Interpretation [...] 697) EGFR (BEAKER) (test 85 mL/min/1.73 ESTIMA FRANKI GFR IS code = 1092) sq m NOT ACCURATE CREATININE CLEARANCE IN PREDICTING GLOMERULAR FILTRATION RATE . ESTIMATED GFR I S NOT APPLICABLE FOR DIALYSIS PATIEN TS. Hospital Liaison ID - [id number] 21:45:00 Test Item Value Reference Range Interpretation Comments MAGNESIUM (BEAKER) (test code = 2.0 mg/dL 1.6-2.6 627) Hospital Liaison ID - [id number] 21:45:00 Test Item Value Reference Range Interpretation Comments PHOSPHORUS (BEAKER) (test code = 3.8 mg/dL 2.3-4.7 604) Hospital Liaison ID - DBCBC W/PLT COUNT & AUTO [id number] 21:29:00 Test Item Value Reference Range Interpretation [...] = 2801) RAD, CHEST, 1 VIEW, NON [id number] 21:19:00Reason for exam:->SDHShould this be performed at the bedside?->Yes [facility] : 1965 Sex: MFINAL REPORT Chest one [...] No focal pulmonary consolidation. Signed: Maritza Oviedo Date/Time: 06/16/2020 21:19:03 XR chest 1 view [...] No focal pulmonary consolidation. Signed: Maritza Oviedo Ve rified Date/Time: 06/16/2020 21:19:03 [facility]
--- NOTE | 2020-10-29 20:31 | RAD REPORT ---
EXAM DESCRIPTION: Indra Henry (2 Views)10/29/2020 8:24 pm CLINICAL HISTORY: Cough COMPARISON: 2018 FINDINGS: The lungs appear clear of acute infiltrate. The heart is normal size IMPRESSION: No acute abnormalities displayed
--- NOTE | 2020-10-29 21:51 | RAD REPORT ---
EXAM DESCRIPTION: CT - Head Brain Wo Cont - 10/29/2020 9:41 pm CLINICAL HISTORY: Dizziness COMPARISON: June 2020 TECHNIQUE: Computed axial tomography of the head was obtained. IV contrast was not requested. All CT scans are performed using dose optimization technique as appropriate and may include automated exposure control or mA/KV adjustment according to patient size. FINDINGS: An intracranial bleed is not seen . Mild low-density areas deep and subcortical white mat ter may be ischemic changes secondary small vessel disease The ventricles are normal in caliber. No extra-axial fluid collection is noted. Postsurgical changes of a left craniotomy. Fluid within the sinuses/ mastoids is not seen. Mild chronic ethmoid sinusitis IMPRESSION: No acute intracranial abnormality is seen. If patient's symptoms persist MRI of the bra in would be recommended.
--- NOTE | 2020-10-29 22:22 | ER ---
Nurse's Notes [facility] Name: Wyatt Sepulveda Age: 54 yrs Sex: Male : 1965 Arrival Date: 10/29/2020 Time: 20:02 Bed 5 Private MD: Diagnosis: Paresthesia of skin Presentation: 10/29 21:18 Chief complaint: Patient states: Pt stated, " I feel shakey, tingling, numbness, kg dizziness, dry mouth, feels like I'm going to pass out. Starting one hour ago.". Coronavirus screen: Client denies travel out of the [place] in the last 14 days. At this time, unable to obtain information related to travel outside the [place] Client presents with at least one sign or symptom that may indicate coronavirus-19. Standard/surgical mask placed on the client. Provider contacted for isolation considerations. Client reports previous positive COVID test result. Date of collection: October 29, 2020. Ebola Screen: Patient negative for fever greater than or equal to 101.5 degrees Fahrenheit, and additional compatible Ebola Virus Disease symptoms Patient denies exposure to infectious person. Patient denies travel to an Ebola-affected area in the 21 days before illness onset. Initial Sepsis Screen: Does the patient meet any 2 criteria? No. Patient's initial sepsis screen is negative. Does the patient have a suspected source of infection? No. Patient's initial sepsis screen is negative. Risk Assessment: Do you want to hurt yourself or someone else? Patient reports no desire to harm self or others. Onset of symptoms was October 29, 2020 at 20:00. 21:18 Method Of Arrival: Ambulatory kg 21:18 Acuity: CARRIE 4 kg Triage Assessment: 21:22 General: Appears in no apparent distress. Behavior is calm, cooperative, appropriate kg for age, quiet. Pain: Complains of pain in Generalized Pain currently is 3 out of 10 on a pain scale. at worst was 3 out of 10 on a pain scale. level that patient reports is acceptable is 3 out of 10 on a pain scale. Quality of pain is described as aching, Pain began 1 hour ago. Historical: - Allergies: 21:22 No Known Allergies; kg - Home Meds: 21:22 lisinopril 20 mg Oral tab 1 tab once daily [Active]; kg - PMHx: 21:22 Hypertension; Brain bleed-craniotomy; kg - PSHx: 21:22 Craniotomy; kg - Immunization history:: Adult Immunizations up to date, Client reports receiving the 2nd dose of the Covid vaccine, Date received: April 2020 [employer] Client reports receiving the 1st dose of the Covid vaccine, March 2020 [employer]. - Social history:: Smoking status: Patient/guardian denies using tobacco, but has a distant history of tobacco abuse, Patient uses alcohol, weekly. Screenin:24 Abuse screen: Denies threats or abuse. Denies injuries from another. Nutritional kg screening: No deficits noted. Tuberculosis screening: No symptoms or risk factors identified. Fall Risk None identified. Assessment: 22:50 Reassessment: Patient and/or family updated on plan of care and expected duration. Pain ea level reassessed. Patient is alert, oriented x 3, equal unlabored respirations, skin warm/dry/pink. Vital Signs: 21:18 BP 164 / 95; Pulse 63; Resp 20; Temp 98.1(O); Pulse Ox 100% on R/A; Weight 99.79 kg kg (R); Height 5 ft. 8 in. (172.72 cm); Pain 3/10; 21:18 Body Mass Index 33.45 (99.79 kg, 172.72 cm) kg ED Course: 20:02 Patient arrived in ED. bp1 20:24 XRAY Chest Pa And Lat (2 Views) In Process Unspecified. EDMS 21:22 Triage completed. kg 21:22 Arm band placed on right wrist. kg 21:24 Patient has correct armband on for positive identification. kg 21:41 CT Head Brain wo Cont In Process Unspecified. EDMS 22:01 Cem Arteaga PA is PHCP. jr8 22:01 Yazan Philip MD is Attending Physician. jr8 22:50 No provider procedures requiring assistance completed. Patient did not have IV access ea during this emergency room visit. Administered Medications: No medications were administered Outcome: 22:22 Discharge ordered by . jr8 22:50 Discharged to home ambulatory. ea 22:50 Condition: stable 22:50 Discharge instructions given to patient, Instructed on discharge instructions, follow up and referral plans. Demonstrated understanding of instructions, follow-up care. 22:51 Patient left the ED. ea Signatures: Dispatcher GrouPAYst Cem Sanchez PA PA jr8 Feli Ji, RN RN Celestina Antoine Kristen, RN RN kg
--- NOTE | 2020-10-29 22:23 | EDPHYS ---
Physician Documentation [facility] Name: Wyatt Sepulveda Age: 54 yrs Sex: Male : 1965 Arrival Date: 10/29/2020 Time: 20:02 Bed 5 Private MD: ED Physician Yazan Philip HPI: 10/29 22:30 This 54 yrs old Male presents to ER via Ambulatory with complaints of jr8 Numbness, Covid+. 22:30 Onset: The symptoms/episode began/occurred today. Modifying factors: The patient jr8 symptoms are alleviated by nothing, the patient symptoms are aggravated by nothing. The patient has not experienced similar symptoms in the past. The patient has not recently seen a physician. Patient stated that he was recently diagnosed with Covid today. Stated that he started feeling, shaky and numb. Wanted to make sure he is okay as last time he had numbness it was a result of subdural hemorrhage in his head.. Historical: - Allergies: 21:22 No Known Allergies; kg - Home Meds: 21:22 lisinopril 20 mg Oral tab 1 tab once daily [Active]; kg - PMHx: 21:22 Hypertension; Brain bleed-craniotomy; kg - PSHx: 21:22 Craniotomy; kg - Immunization history:: Adult Immunizations up to date, Client reports receiving the 2nd dose of the Covid vaccine, Date received: April 2020 [employer] Client reports receiving the 1st dose of the Covid vaccine, March 2020 [employer] - Social history:: Smoking status: Patient/guardian denies using tobacco, but has a distant history of tobacco abuse, Patient uses alcohol, weekly. ROS: 22:30 Eyes: Negative for injury, pain, redness, and discharge, ENT: Negative for injury, jr8 pain, and discharge, Neck: Negative for injury, pain, and swelling, Cardiovascular: Negative for chest pain, palpitations, and edema, Respiratory: Negative for shortness of breath, cough, wheezing, and pleuritic chest pain, Abdomen/GI: Negative for abdominal pain, nausea, vomiting, diarrhea, and constipation, Back: Negative for injury and pain, MS/Extremity: Negative for injury and deformity, Skin: Negative for injury, rash, and discoloration. 22:30 Neuro: Positive for numbness. Exam: 22:30 Constitutional: This is a well developed, well nourished patient who is awake, alert, jr8 and in no acute distress. Cardiovascular: Regular rate and rhythm with a normal S1 and S2. No gallops, murmurs, or rubs. Normal PMI, no JVD. No pulse deficits. Respiratory: Lungs have equal breath sounds bilaterally, clear to auscultation and percussion. No rales, rhonchi or wheezes noted. No increased work of breathing, no retractions or nasal flaring. Abdomen/GI: Soft, non-tender, with normal bowel sounds. No distension or tympany. No guarding or rebound. No evidence of tenderness throughout. Back: No spinal tenderness. No costovertebral tenderness. Full range of motion. Skin: Warm, dry with normal turgor. Normal color with no rashes, no lesions, and no evidence of cellulitis. MS/ Extremity: Pulses equal, no cyanosis. Neurovascular intact. Full, normal range of motion. Neuro: Awake and alert, GCS 15, oriented to person, place, time, and situation. Cranial nerves II-XII grossly intact. Motor strength 5/5 in all extremities. Sensory grossly intact. Cerebellar exam normal. Normal gait. Vital Signs: 21:18 BP 164 / 95; Pulse 63; Resp 20; Temp 98.1(O); Pulse Ox 100% on R/A; Weight 99.79 kg kg (R); Height 5 ft. 8 in. (172.72 cm); Pain 3/10; 21:18 Body Mass Index 33.45 (99.79 kg, 172.72 cm) kg MDM: 22:01 Patient medically screened. [facility] 22:02 Data reviewed: vital signs, nurses notes, radiologic studies, CT scan, plain films. [facility] Data interpreted: Pulse oximetry: on room air is 100 %. Interpretation: normal. Counseling: I had a detailed discussion with the patient and/or guardian regarding: the historical points, exam findings, and any diagnostic results supporting the discharge/admit diagnosis, radiology results, the need for outpatient follow up, a family practitioner, to return to the emergency department if symptoms worsen or persist or if there are any questions or concerns that arise at home. 10/29 20:04 Order name: XRAY Chest Pa And Lat (2 Views); Complete Time: 21:31 rn 10/29 21:25 Order name: CT Head Brain wo Cont; Complete Time: 22:02 kg Administered Medications: No medications were administered Disposition: 23:36 Co-signature as Attending Physician, Yazan Philip MD I agree with the assessment and rn plan of care. Attestation: The patient's history, exam findings, diagnostics, and a summary of any interventions or procedures was reviewed in detail with [facility]. Disposition Summary: 10/29/20 22:22 Discharge Ordered Location: Home [facility] Problem: new jr8 Symptoms: have improved jr8 Condition: Stable jr8 Diagnosis - Paresthesia of skin jr8 Followup: jr8 - With: Private Physician - When: 2 - 3 days - Reason: Recheck today's complaints, Continuance of care, Re-evaluation by your physician Discharge Instructions: - Discharge Summary Sheet jr8 - Paresthesia jr8 Forms: - Medication Reconciliation Form jr8 - Thank You Letter jr8 - Antibiotic Education jr8 - Prescription Opioid Use jr8 Signatures: Dispatcher [employer] EDMS Yazan Philip MD MD rn Roszak, Josh, PA PA jr8 Kate Mcduffie, RN RN kg
[2020-10-29 23:00] VITALS: BP 164/95; TEMP 98.1; O2SAT 100
== END 2020-10-29 22:51 | disposition home or self-care (01) ==
LOC: ER 19:59
DX: R20.2 Paresthesia of skin (principal); I10 Essential (primary) hypertension
CPT/HCPCS: 70450; 71046; 99283

== ENCOUNTER 2022-01-25 02:52 | Emergency (ER) | payer OTHER ==
--- OUTSIDE RECORDS SUMMARY | 2022-01-25 02:59 | XMS REPORT | Continuity of Care Document ---
:1965 Author Organization [facility] t Address [address] [place] [address] Care Team Providers Name Role Phone No MD, Pcp [facility] Primary Care Physician Unavailable TRACY BROWN I. Attending Clinician Unavailable KATHY RIGGS Attending Clinician Unavailable Odilon Casarez MD Attending Clinician RAMU SO Attending Clinician Unavailable RAMU SO Attending Clinician Unavailable Hugh ELECTRIC CAR OPERATORBettina Attending Clinician [phone] [place] [address] Ct Room Attending Clinician Unavailable BETTINA ISAAC Attending Clinician Unavailable Hugh [facility] Attending Clinician [phone] Tracy Brown MD, I. Attending Clinician [phone] Tori Huffman MD Attending Clinician [phone] Kathy Riggs MD Attending Clinician Shelley MOISE, Chris Emerson Attending Clinician Odilon Casarez MD Attending Clinician Cali Bagley MD Attending Clinician Thom Pham CRNA Attending Clinician VIANNEY FREITAS Attending Clinician Unavailable Kenn Lr MD Attending Clinician KENN LR Attending Clinician Unavailable Doctor Unassigned, [place] Attending Clinician Unavailable Vinicius Millan MD A Attending Clinician VINICIUS MILLAN A Attending Clinician Unavailable TRACY BROWN I. Admitting Clinician Unavailable KATHY RIGGS Admitting Clinician Unavailable Payers Payer Name Policy Type Policy Number Effective Date Expiration Date Linda SAHA [id number] 2020 00:00:00 [facility] [id number] 2017 PPO/POS 00:00:00 Problems Condition Condition Condition Status Onset Resolution Last Treating Co mments Source Name Details Category Date Date Treatment Clinician Date Weakness Weakness Disease [facility] Midline Midline Disease Active [facility] HTN HTN Disease Active [facility] (hypertens (hypertens 4-07 Kim kes ion) ion) 00:00: Medical 00 Center Subdural Subdural Disease Active Overview: [facility] hematoma hematoma 3-29 [facility]in Pooja es 00:00: g of this Medical 00 note Center might be different from the original. Added automatic ally from request for surgery [id number] Dyslipidem Dyslipidem Disease Active 2017-03 U nivers ia (high ia (high 0-16 ity of LDL; low LDL; low 00:00: [place] HDL) HDL) 00 Medical Branch Obesity Obesity Disease Active 2017-03 Univers (BMI (BMI 0-16 ity of 30-39.9) 30-39.9) 00:00: [address] Branch Allergies, Adverse Reactions, Alerts Allergy Allergy Status Severity Reaction(s) Onset Inactive Treating Comm ents Source Name Type Date Date Clinician NO KNOWN Drug Active Univers ALLERGIE Class ity of S [facility] NO KNOWN Allergy Active [facility] Social History Social Habit Start Date Stop Date Quantity Comments Source Exposure to Not sure [facility]-CoV-2 [place] [facility] (event) Branch History SDOH [facility] Alcohol Comment Medical C enter Alcohol intake 2020-06-23 2020-06-23 Ex-drinker [facility] 00:00:00 00:00:00 (finding) Medical Center Tobacco use and 2020-06-17 2020-06-[address] Kim kes exposure 00:00:00 00:00:00 Medical Center History [facility] 2020-06-17 2020-06-[address] [facility] Alcohol Frequency 00:00:00 00:00:00 Medical Center History [facility] 2020-06-17 2020-06-[address] [facility] Alcohol Std 00:00:00 00:00:00 Medical Cente r Drinks History [facility] 2020-06-17 2020-06-[address] [facility] Alcohol Binge 00:00:00 00:00:[address] Sex Assigned At [address] [facility] 00:00:00 00:00:00 Medical Center Smoking Status Start Date Stop Date Source Former smoker 2020-07-03 00:00:00 2020-07-03 00:00:00 [facility] Never smoker [facility] Medications Ordered Filled Start Stop Current Ordering Indication Dosage Frequency Signature Comments Components Source Medication Medication Date Date Medication? Clinician (SIG) Name Name TAKE 5 ML 2021-0 No BY MOUTH 8-19 EVERY 6 00:00: HOURS 00 NEEDED FOR COUGH TAKE 5 ML 2021-0 No BY MOUTH 8-19 EVERY 6 00:00: HOURS 00 NEEDED FOR COUGH TAKE 5 ML 2021-0 No BY MOUTH 8-19 EVERY 6 00:00: HOURS 00 NEEDED FOR COUGH TAKE 5 ML 2021-0 No BY MOUTH 8-19 EVERY 6 00:00: HOURS 00 NEEDED FOR COUGH HYDROcodone 2020- 1{tbl} Take [address] -acetaminop 4-03 04-09 tablet by Kim read hen (NORCO 00:00: 23:59 mouth Medic al 5-325) 00 :00 every 8 Center 5-325 mg (eight) per tablet hours as needed for Pain for up to 6 days. Max Daily Amount: 3 tablets ibuprofen 2020- No headache 800mg Take [address] (ADVIL,MOTR 06-09 04-03 disorder mg by Kim read IN) 800 MG 00:00: 00:00 mouth Medic al tablet 00 :00 every 6 Center (six) hours as needed for Pain For headaches, took for two days every 6 hours only. Per ELECTRIC CAR OPERATOR Stephanie Jack . lisinopriL 2019- Yes [id number] 20mg Take 1 U nivers 20 mg 1-09 tablet by ity of tablet 00:00: mouth [place] 00 daily. [facility] lisinopriL 2019- Yes [id number] 20mg Take 1 U nivers 20 mg 1-09 tablet by ity of tablet 00:00: mouth [place] 00 daily. [facility] lisinopriL 2019- Yes [id number] 20mg Take 1 U nivers 20 mg 1-09 tablet by ity of tablet 00:00: mouth [place] 00 daily. [facility] lisinopriL 2019- Yes [id number] 20mg Take 1 U nivers 20 mg 1-09 tablet by ity of tablet 00:00: mouth [place] 00 daily. [facility] lisinopriL 2019- Yes [id number] 20mg Take 1 U nivers 20 mg 1-09 tablet by ity of tablet 00:00: mouth [place] 00 daily. [facility] lisinopriL 2019-03 Yes [id number] 20mg Take 1 U nivers 20 mg 1-09 tablet by ity of tablet 00:00: mouth [place] 00 daily. [facility] lisinopriL 2019-03 Yes 20mg QD Take [address] (PRINIVIL,Z 1-09 by mouth Luke s ESTRIL) 20 00:00: daily. Medic al MG tablet 00 [facility] lisinopriL 2019-03 Yes 20mg QD Take [address] (PRINIVIL,Z 1-09 by mouth Luke s ESTRIL) 20 00:00: daily. Medic al MG tablet 00 [facility] lisinopriL 2019-03 Yes 20mg QD Take [address] (PRINIVIL,Z 1-09 by mouth Luke s ESTRIL) 20 00:00: daily. Medic al MG tablet 00 [facility] lisinopriL 2019-03 Yes 20mg QD Take [address] (PRINIVIL,Z 1-09 by mouth Luke s ESTRIL) 20 00:00: daily. Medic al MG tablet 00 [facility] lisinopriL 2019-03 Yes 20mg QD Take [address] (PRINIVIL,Z 1-09 by mouth Luke s ESTRIL) 20 00:00: daily. Medic al MG tablet 00 [facility] lisinopriL 2019-03 Yes 20mg QD Take [address] (PRINIVIL,Z 1-09 by mouth Luke s ESTRIL) 20 00:00: daily. Medic al MG tablet 00 [facility] lisinopriL 2019-03 Yes 20mg QD Take [address] (PRINIVIL,Z 1-09 by mouth Luke s ESTRIL) 20 00:00: daily. Medic al MG tablet 00 [facility] lisinopriL 2019-03 Yes 20mg QD Take [address] (PRINIVIL,Z 1-09 by mouth Luke s ESTRIL) 20 00:00: daily. Medic al MG tablet 00 [facility] lisinopriL 2019-03 Yes 20mg QD Take [address] (PRINIVIL,Z 1-09 by mouth Luke s ESTRIL) 20 00:00: daily. Medic al MG tablet 00 [facility] lisinopril 2019-03 Yes 20mg Take 20 mg B [facility] (PRINIVIL, 1-09 by mouth Colle ge ZESTRIL) 20 00:00: daily. of MG tablet 00 Medicin e lisinopril 2019-03 Yes 20mg Take 20 mg B [facility] (PRINIVIL, 1-09 by mouth Colle ge ZESTRIL) 20 00:00: daily. of MG tablet 00 Medicin e lisinopriL 2019-03 Yes 20mg QD Take [address] (PRINIVIL,Z 1-09 by mouth Luke s ESTRIL) 20 00:00: daily. Medic al MG tablet 00 [facility] LISINOPRIL 2019-03 Yes [id number] TAKE ONE Univers 20 mg 0-02 TABLET BY ity of tablet 00:00: MOUTH [place] 00 DAILY Medical Branch LISINOPRIL 2019- Yes [id number] TAKE ONE Univers 20 mg 0-02 TABLET BY ity of tablet 00:00: MOUTH [place] 00 DAILY Medical Branch LISINOPRIL 2019- 2020- No [id number] TAKE ONE Univers 20 mg 0-02 11-09 TABLET BY ity of tablet 00:00: 00:00 MOUTH [place] 00 :00 DAILY Medical Branch LISINOPRIL 2019- 2020- No [id number] TAKE ONE Univers 20 mg 0-02 11-09 TABLET BY ity of tablet 00:00: 00:00 MOUTH [place] 00 :00 DAILY Medical Branch LISINOPRIL 2019-03 2020- No [id number] TAKE ONE Univers 20 mg 0-02 11-09 TABLET BY ity of tablet 00:00: 00:00 MOUTH [place] 00 :00 DAILY Medical Branch LISINOPRIL 2019- 2020- No [id number] TAKE ONE Univers 20 mg 0-02 11-09 TABLET BY ity of tablet 00:00: 00:00 MOUTH [place] 00 :00 DAILY Medical Branch lisinopril 2018-0 2020- No [id number] 20mg Take 1 Univers 20 mg 9-19 10-02 tablet by ity of tablet 00:00: 00:00 mouth [place] 00 :00 daily. Medical Branch LISINOPRIL 2019-0 Yes [id number] TAKE ONE Univers 20 mg 7-16 TABLET BY ity of tablet 00:00: MOUTH [place] 00 DAILY Medical [place] Immunizations Ordered Filled Immunization Date Status Comments [facility] e Immunization Name Name Influenza Virus 2019-12-25 Completed Universit y of Vaccine 00:00:00 [facility] Influenza Virus 2019-12-25 Completed Universit y of Vaccine 00:00:00 [facility] Influenza Virus 2019-12-25 Completed Universit y of Vaccine 00:00:00 [facility] Influenza Virus 2019-12-25 Completed Universit y of Vaccine 00:00:00 [facility] Influenza Virus 2019-12-25 Completed Universit y of Vaccine 00:00:00 [facility] Influenza Virus 2019-12-25 Completed Universit y of Vaccine 00:00:00 [facility] Influenza Virus 2017-12-28 Completed Universit y of Vaccine Quad IM 3+ 00:00:00 [facility] Influenza Virus 2017-12-28 Completed Universit y of Vaccine Quad IM 3+ 00:00:00 [facility] Influenza Virus 2017-12-28 Completed Universit y of Vaccine Quad IM 3+ 00:00:00 [facility] Influenza Virus 2017-12-28 Completed Universit y of Vaccine Quad IM 3+ 00:00:00 [facility] Influenza Virus 2017-12-28 Completed Universit y of Vaccine Quad IM 3+ 00:00:00 [facility] Influenza Virus 2017-12-28 Completed Universit y of Vaccine Quad IM 3+ 00:00:00 [facility] Influenza Virus 2017-12-28 Completed Universit y of Vaccine Quad IM 3+ 00:00:00 [facility] Influenza Virus 2017-12-28 Completed Universit y of Vaccine Quad IM 3+ 00:00:00 [facility] Influenza Virus 2017-12-28 Completed Universit y of Vaccine Quad IM 3+ 00:00:00 [facility] Vital Signs Vital Name Observation Time Observation Value Comments Source HEIGHT 2020-06-24 18:00:00 172.7 cm WEIGHT 2020-06-24 18:00:00 105.688 kg HEIGHT 2020-06-24 17:31:00 172.7 cm WEIGHT 2020-06-24 17:31:00 105.688 kg HEIGHT 2020-06-20 23:10:00 172.7 cm WEIGHT 2020-06-20 23:10:00 107.14 kg WEIGHT 2020-06-20 03:00:00 107.4 kg WEIGHT 2020-06-19 07:00:00 110.7 kg WEIGHT 2020-06-18 08:00:00 110 kg WEIGHT 2020-06-18 06:00:00 111.1 kg WEIGHT 2020-06-17 06:00:00 110 kg HEIGHT 2020-06-17 02:30:00 172.7 cm WEIGHT 2020-06-17 02:30:00 110.5 kg Systolic blood 2020-07-21 13:15:00 108 mm[Hg] [facility] pressure Medicine Diastolic blood 2020-07-21 13:15:00 74 mm[Hg] [facility] pressure Medicine Heart rate 2020-07-21 13:15:00 57 /min [facility] Body temperature 2020-07-21 13:15:00 36.28 Susan [facility] Respiratory rate 2020-07-21 13:15:00 16 /min [facility] Body height 2020-07-21 13:15:00 172.7 cm [facility] Body weight 2020-07-21 13:15:00 108.41 kg [facility] BMI 2020-07-21 13:15:00 36.34 kg/m2 [facility] Oxygen saturation in 2020-07-21 13:15:00 98 /min [facility] Arterial blood by Medicine Pulse oximetry Systolic blood 2020-07-21 13:15:00 108 mm[Hg] [facility] [employer] pressure Medicine Diastolic blood 2020-07-21 13:15:00 74 mm[Hg] [facility] Medicine Heart rate 2020-07-21 13:15:00 57 /min [facility] Body temperature 2020-07-21 13:15:00 36.28 Susan [facility] Respiratory rate 2020-07-21 13:15:00 16 /min [facility] Body height 2020-07-21 13:15:00 172.7 cm [facility] Body weight 2020-07-21 13:15:00 108.41 kg [facility] BMI 2020-07-21 13:15:00 36.34 kg/m2 [facility] Oxygen saturation in 2020-07-21 13:15:00 98 /min [facility] Arterial blood by Medicine Pulse oximetry Diastolic blood 2020-07-03 17:11:00 81 mm[Hg] [facility] Medicine Heart rate 2020-07-03 17:11:00 71 /min [facility] Body temperature 2020-07-03 17:11:00 36.33 Susan [facility] Respiratory rate 2020-07-03 17:11:00 16 /min [facility] Body height 2020-07-03 17:11:00 172.7 cm [facility] Body weight 2020-07-03 17:11:00 106.595 kg [facility] BMI 2020-07-03 17:11:00 35.73 kg/m2 [facility] Oxygen saturation in 2020-07-03 17:11:00 99 /min [facility] Arterial blood by Medicine Pulse oximetry Systolic blood 2020-07-03 17:11:00 113 mm[Hg] [facility] Medicine Diastolic blood 2020-07-03 17:11:00 81 mm[Hg] [facility] Medicine Heart rate 2020-07-03 17:11:00 71 /min [facility] Body temperature 2020-07-03 17:11:00 36.33 Susan [facility] Respiratory rate 2020-07-03 17:11:00 16 /min [facility] Body height 2020-07-03 17:11:00 172.7 cm [facility] Body weight 2020-07-03 17:11:00 106.595 kg [facility] BMI 2020-07-03 17:11:00 35.73 kg/m2 [facility] Oxygen saturation in 2020-07-03 17:11:00 99 /min [facility] blood by [facility] Pulse oximetry Systolic blood 2020-07-03 17:11:00 113 mm[Hg] [facility] Medicine HEIGHT 2020-06-24 18:00:00 172.7 cm WEIGHT 2020-06-24 18:00:00 105.688 kg HEIGHT 2020-06-24 17:31:00 172.7 cm WEIGHT 2020-06-24 17:31:00 105.688 kg HEIGHT 2020-06-20 23:10:00 172.7 cm WEIGHT 2020-06-20 23:10:00 107.14 kg WEIGHT 2020-06-20 03:00:00 107.4 kg WEIGHT 2020-06-19 07:00:00 110.7 kg WEIGHT 2020-06-18 08:00:00 110 kg WEIGHT 2020-06-18 06:00:00 111.1 kg WEIGHT 2020-06-17 06:00:00 110 kg HEIGHT 2020-06-17 02:30:00 172.7 cm WEIGHT 2020-06-17 02:30:00 110.5 kg Systolic blood 2020-01-28 17:42:00 109 mm[Hg] Univer sity of pressure [facility] Diastolic blood 2020-01-28 17:42:00 68 mm[Hg] Unive rsity of pressure [facility] Heart rate 2020-01-28 17:42:00 53 /min [facility] Body temperature 2020-01-28 17:42:00 36.44 Susan [facility] Body height 2020-01-28 17:42:00 172.7 cm Universi [facility] Body weight 2020-01-28 17:42:00 112.492 kg [facility] BMI 2020-01-28 17:42:00 37.71 kg/m2 Universi ty [facility] Systolic blood 2020-01-28 17:42:00 109 mm[Hg] Univer sity of pressure [facility] Diastolic blood 2020-01-28 17:42:00 68 mm[Hg] Unive rsity of pressure [facility] Heart rate 2020-01-28 17:42:00 53 /min Universi ty [facility] Body temperature 2020-01-28 17:42:00 36.44 [facility] 2020-01-28 17:42:00 172.7 cm Universi ty [facility] Body weight 2020-01-28 17:42:00 112.492 kg Universi ty [facility] BMI 2020-01-28 17:42:00 37.71 [facility] BP Systolic 2022-01-15 16:41:00 123 mm[Hg] BP Diastolic 2022-01-15 16:41:00 81 mm[Hg] Weight Measured 2022-01-15 16:41:00 226.60 pounds Height Measured 2022-01-15 16:41:00 68.00 inches Body Temperature 2022-01-15 16:41:00 97.30 degrees Heart Rate 2022-01-15 16:41:00 59.00 /min Respiratory Rate 2022-01-15 16:41:00 16.00 /min BP Systolic 2021-12-08 08:27:00 120 mm[Hg] BP Diastolic 2021-12-08 08:27:00 79 mm[Hg] Weight Measured 2021-12-08 08:27:00 226.80 pounds Height Measured 2021-12-08 08:27:00 68.00 inches Body Temperature 2021-12-08 08:27:00 98.20 degrees Heart Rate 2021-12-08 08:27:00 57.00 /min Respiratory Rate 2021-12-08 08:27:00 16.00 /min BP Systolic 2021-11-14 08:57:00 114 mm[Hg] BP Diastolic 2021-11-14 08:57:00 65 mm[Hg] Weight Measured 2021-11-14 08:57:00 230.00 pounds Height Measured 2021-11-14 08:57:00 68.00 inches Body Temperature 2021-11-14 08:57:00 97.60 degrees Heart Rate 2021-11-14 08:57:00 60.00 /min Respiratory Rate 2021-11-14 08:57:00 21.00 /min BP Systolic 2021-11-06 16:39:00 137 mm[Hg] BP Diastolic 2021-11-06 16:39:00 84 mm[Hg] Weight Measured 2021-11-06 16:39:00 225.40 pounds Height Measured 2021-11-06 16:39:00 68.00 inches Body Temperature 2021-11-06 16:39:00 98.10 degrees Heart Rate 2021-11-06 16:39:00 57.00 /min Respiratory Rate 2021-11-06 16:39:00 Systolic blood 2020-06-26 12:00:00 123 mm[Hg] [facility] Diastolic blood 2020-06-26 12:00:00 62 mm[Hg] [facility] Heart rate 2020-06-26 12:00:00 75 /min [facility] Body temperature 2020-06-26 12:00:00 35.89 Susan [facility] Respiratory rate 2020-06-26 12:00:00 20 /min [facility] Oxygen saturation in 2020-06-26 12:00:00 99 /min [facility] Arterial blood by Medical Ce nter Pulse oximetry Body height 2020-06-24 18:00:00 172.7 cm [facility] Body weight 2020-06-24 18:00:00 105.688 kg [facility] BMI 2020-06-24 18:00:00 35.43 kg/m2 [facility] Procedures Procedure Date / Time Performing Clinician Source Performed CT BRAIN WITHOUT IV 2020-07-11 07:13:00 Hugh [facility] CONTRAST [facility] MAGNESIUM 2020-06-26 06:48:00 Figueroa Daniels [facility] PHOSPHORUS 2020-06-26 06:48:00 Figueroa Daniels [facility] BASIC METABOLIC PANEL (7) 2020-06-26 06:48:00 Figueroa Daniels [facility] POCT-GLUCOSE METER 2020-06-26 06:24:00 [facility] CBC W/PLT COUNT & AUTO 2020-06-26 05:38:00 Figueroa Daniels [facility] POCT-GLUCOSE METER 2020-06-26 00:06:00 [facility] EEG AWAKE AND DROWSY 2020-06-25 15:20:00 Figueroa Daniels [facility] POCT-GLUCOSE METER 2020-06-25 12:22:00 [facility] CBC W/PLT COUNT & AUTO 2020-06-25 05:01:00 Torin Silver [facility] DIFFERENTIAL [facility] MAGNESIUM 2020-06-25 05:01:00 Figueroa Daniels [facility] PHOSPHORUS 2020-06-25 05:01:00 Figueroa Daniels [facility] BASIC METABOLIC PANEL (7) 2020-06-25 05:01:00 Figueroa Daniels [facility] CTA CAROTID 2020-06-25 04:20:00 Figueroa Daniels [facility] CTA BRAIN 2020-06-25 04:20:00 Figueroa Daniels [facility] MR BRAIN WITHOUT IV 2020-06-24 22:32:00 Figueroa Daniels [facility] HEPATIC FUNCTION PANEL 2020-06-24 18:15:00 Figueroa Daniels [facility] PROTHROMBIN TIME/INR 2020-06-24 18:15:00 Figueroa Daniels [facility] APTT 2020-06-24 18:15:00 Figueroa Daniels [facility] CBC W/PLT COUNT & AUTO 2020-06-24 18:15:00 Adrianne, [facility] BASIC METABOLIC PANEL (7) 2020-06-24 18:15:00 Adrianne Torin Yu [facility] FIBRINOGEN 2020-06-24 18:15:00 Adrianne [facility] MAGNESIUM 2020-06-24 18:15:00 Adrianne, [facility] PHOSPHORUS 2020-06-24 18:15:00 Adrianne, [facility] CT BRAIN WITHOUT IV 2020-06-21 10:11:00 Chris Rosa Idania [facility] BASIC METABOLIC PANEL (7) 2020-06-21 05:07:00 Figueroa Daniels [facility] MAGNESIUM 2020-06-21 05:07:00 Figueroa Daniels [facility] PHOSPHORUS 2020-06-21 05:07:00 Figueroa Daniels [facility] CBC W/PLT COUNT & AUTO 2020-06-21 05:06:00 Figueroa Daniels [facility] BASIC METABOLIC PANEL (7) 2020-06-20 03:52:00 Figueroa Daniels [facility] CBC W/PLT COUNT & AUTO 2020-06-20 03:52:00 Triston Kat [facility] MAGNESIUM 2020-06-20 03:52:00 Figueroa Daniels [facility] PHOSPHORUS 2020-06-20 03:52:00 Figueroa Daniels [facility] CBC W/PLT COUNT & AUTO 2020-06-19 04:12:00 Triston Kat [facility] BASIC METABOLIC PANEL (7) 2020-06-19 03:33:00 Figueroa Daniels [facility] MAGNESIUM 2020-06-19 03:33:00 Figueroa Daniels [facility] PHOSPHORUS 2020-06-19 03:33:00 Figueroa Daniels [facility] CT BRAIN WITHOUT IV 2020-06-18 04:12:00 Triston Kat [facility] BASIC METABOLIC PANEL (7) 2020-06-18 03:48:00 Figueroa Daniels [facility] CBC W/PLT COUNT & AUTO 2020-06-18 03:48:00 Triston Kat [facility] Center MAGNESIUM 2020-06-18 03:48:00 Figueroa Daniels [facility] PHOSPHORUS 2020-06-18 03:48:00 Figueroa Daniels [facility] CRANIECTOMY/ 2020-06-17 07:33:00 Odilon Casarez [facility] CRANIOTOMY,EVACUATION Center HEMATOMA CT BRAIN WITHOUT IV 2020-06-17 04:28:00 Aly Reinoso [facility] Center BASIC METABOLIC PANEL (7) 2020-06-17 03:47:00 Figueroa Daniels [facility] CBC W/PLT COUNT & AUTO 2020-06-17 03:47:00 Amelia Reyes CH, I [facility] MAGNESIUM 2020-06-17 03:47:00 Figueroa Daniels [facility] PHOSPHORUS 2020-06-17 03:47:00 Figueroa Daniels [facility] LIPID PANEL 2020-06-17 03:47:00 Argyle [facility] TSH/FREE T4 IF INDICATED 2020-06-17 03:47:00 Argyle [facility] TROPONIN I 2020-06-17 03:47:00 Argyle [facility] ABORH, MANUAL 2020-06-16 21:51:00 Marlena Soto [facility] SARS-COV2/RT-PCR ([facility] & 2020-06-16 21:17:00 Argyle [facility] REF LABS) [facility] BASIC METABOLIC PANEL (7) 2020-06-16 21:16:00 Argyle [facility] CBC W/PLT COUNT & AUTO 2020-06-16 21:16:00 Amelia Reyes CH, I [facility] DIFFERENTIAL Center MAGNESIUM 2020-06-16 21:16:00 Mariana Reyesutha [facility] PHOSPHORUS 2020-06-16 21:16:00 Eric Amelia [facility] PROTHROMBIN TIME/INR 2020-06-16 21:16:00 Amelia Reyes [facility] APTT 2020-06-16 21:16:00 Eric Amelia [facility] FIBRINOGEN 2020-06-16 21:16:00 [facility] SCREEN, 2020-06-16 21:16:00 Eric Amelia [facility] AUTOMATED Center ECG 12-LEAD 2020-06-16 21:15:02 Unknown, Hl7 [facility] XR CHEST 1 VIEW PORTABLE 2020-06-16 20:38:00 Eric Amelia [facility] / BEDSIDE Center SCANNED LAB RESULTS 2020-01-29 06:01:00 Doctor Unassigned, No [facility] [place] Name [facility] NO SHOW OR MISSED 2018-12-07 20:36:19 Doctor Unassigned, No Univ ersity [facility] APPOINTMENT POLICY Name Medical [facility] ACKNOWLEDGEMENT Plan of Care Planned Activity Planned Date Details Comments Source Future Scheduled 2023-06-18 Lipid panel (procedure) [facility] Test 00:00:00 [code = 36011195] Medical Ce nter Future Scheduled 2023-06-18 Lipid panel (procedure) [facility] Test 00:00:00 [code = [id number]] Medical Ce nter Future Scheduled 2023-06-18 Lipid panel (procedure) [facility] Test 00:00:00 [code = [id number]] Medical Ce nter Future Scheduled 2023-06-18 Lipid panel (procedure) [facility] Test 00:00:00 [code = [id number]] Medical Ce nter Future Scheduled 2023-06-18 Lipid panel (procedure) [facility] Test 00:00:00 [code = [id number]] Medical Ce nter Future Scheduled 2023-06-18 Lipid panel (procedure) [facility] [facility]00 [code = [id number]] Medical Ce nter Future Scheduled 2023-06-18 Lipid panel (procedure) [facility] 00:00:00 [code = 41645813] Medical Ce nter Future Scheduled 2023-06-18 Lipid panel (procedure) [facility] 00:00:00 [code = 05598546] Medical Ce nter Future Scheduled 2023-06-18 Lipid panel (procedure) [facility] 00:00:00 [code = 98916045] Medical Ce nter Future Scheduled 2023-06-18 Lipid panel (procedure) [facility] 00:00:00 [code = 01229096] Medical Ce nter Future Scheduled 2021-11-19 INFLUENZA VACCINE (#1) [facility]00 [code = INFLUENZA Medical Ce nter VACCINE (#1)] Future Scheduled 2021-11-19 INFLUENZA VACCINE (#1) [facility]:00:00 [code = INFLUENZA Medical Ce nter VACCINE (#1)] Future Scheduled 2021-11-19 INFLUENZA VACCINE (#1) [facility] 00:00:00 [code = INFLUENZA Medical Ce nter VACCINE (#1)] Future Scheduled 2021-11-19 INFLUENZA VACCINE (#1) [facility] 00:00:00 [code = INFLUENZA Medical Ce nter VACCINE (#1)] Future Scheduled 2021-11-19 INFLUENZA VACCINE (#1) [facility] 00:00:00 [code = INFLUENZA Medical Ce nter VACCINE (#1)] Future Scheduled 2021-11-19 INFLUENZA VACCINE (#1) [facility] 00:00:00 [code = INFLUENZA Medical Ce nter VACCINE (#1)] Future Scheduled 2021-11-19 INFLUENZA VACCINE (#1) [facility] 00:00:00 [code = INFLUENZA Medical Ce nter VACCINE (#1)] Future Scheduled 2021-11-19 INFLUENZA VACCINE (#1) [facility] 00:00:00 [code = INFLUENZA Medical Ce nter VACCINE (#1)] Future Scheduled 2021-11-19 INFLUENZA VACCINE (#1) [facility]:00 [code = INFLUENZA Medical Ce nter VACCINE (#1)] Future Scheduled 2021-03-[address] [facility] 00:00:00 (12+) [code = Medical Center DEPRESSION SCREENING (12+)] Future Scheduled 2021-03-[address] [facility] 00:00:00 (12+) [code = Medical Center DEPRESSION SCREENING (12+)] Future Scheduled 2021-03-[address] [facility] 00:00:00 (12+) [code = Medical Center DEPRESSION SCREENING (12+)] Future Scheduled 2021-03-[address] [facility] 00:00:00 (12+) [code = Medical Center DEPRESSION SCREENING (12+)] Future Scheduled 2021-03-[address] [facility] 00:00:00 (12+) [code = Medical Center DEPRESSION SCREENING (12+)] Future Scheduled 2021-03-[address] [facility] 00:00:00 (12+) [code = Medical Center DEPRESSION SCREENING (12+)] Future Scheduled 2021-03-[address] [facility] 00:00:00 (12+) [code = Medical Center DEPRESSION SCREENING (12+)] Future Scheduled 2021-03-[address] [facility] 00:00:00 (12+) [code = Medical Center DEPRESSION SCREENING (12+)] Future Scheduled 2021-03-[address] [facility] 00:00:00 (12+) [code = Medical Center DEPRESSION SCREENING (12+)] Future Scheduled 2020-11-19 INFLUENZA VACCINE (#1) [facility]:00:00 [code = INFLUENZA Medical Ce nter VACCINE (#1)] Future Scheduled 2020-10-13 COVID-19 VACCINE (3 - [facility]00 Booster for Pfizer Medical C enter series) [code = COVID-19 VACCINE (3 - Booster for Pfizer series)] Future Scheduled 2020-10-13 COVID-19 VACCINE (3 - [facility] 00[facility]:00 Booster for Pfizer Medical C enter series) [code = COVID-19 VACCINE (3 - Booster for Pfizer series)] Future Scheduled 2020-10-13 COVID-19 VACCINE (3 - [facility] 00:[facility]:00 Booster for Pfizer Medical C enter series) [code = COVID-19 VACCINE (3 - Booster for Pfizer series)] Future Scheduled 2020-10-13 COVID-19 VACCINE (3 - [facility] 00:00:00 Booster for Pfizer Medical C enter series) [code = COVID-19 VACCINE (3 - Booster for Pfizer series)] Future Scheduled 2020-10-13 COVID-19 VACCINE (3 - [facility] 00:00:00 Booster for Pfizer Medical C enter series) [code = COVID-19 VACCINE (3 - Booster for Pfizer series)] Future Scheduled 2020-10-13 COVID-19 VACCINE (3 - [facility] 00:00:00 Booster for Pfizer Medical C enter series) [code = COVID-19 VACCINE (3 - Booster for Pfizer series)] Future Scheduled 2020-10-13 COVID-19 VACCINE (3 - [facility] 00:00:00 Booster for Pfizer Medical C enter series) [code = COVID-19 VACCINE (3 - Booster for Pfizer series)] Future Scheduled 2020-10-13 COVID-19 VACCINE (3 - [facility] 00:00:00 Booster for Pfizer Medical C enter series) [code = COVID-19 VACCINE (3 - Booster for Pfizer series)] Future Scheduled 2020-10-13 COVID-19 VACCINE (3 - [facility] 00:00:00 Booster for Pfizer Medical C enter series) [code = COVID-19 VACCINE (3 - Booster for Pfizer series)] Future Scheduled 2020-07-27 Screening for malignant [facility] Test 21:03:26 neoplasm of colon of Medicin e (procedure) [code = [id number]] Future Scheduled 2020-07-27 TETANUS SHOT (ADULT) [facility] Test 21:03:26 [code = TETANUS SHOT of Medi cine (ADULT)] Future Scheduled 2020-07-27 Hepatitis C screening [facility] Test 21:03:26 (procedure) [code = of Medic ine [id number]] Future Scheduled 2020-07-27 Human immunodeficiency [facility] Test 21:03:26 virus screening of Medicine (procedure) [code = 116785408] Future Scheduled 2020-07-27 ZOSTER VACCINE (1 of 2) [facility] Test 21:03:26 [code = ZOSTER VACCINE of Pr dicine (1 of 2)] Future Scheduled 2020-07-27 FLU VACCINE > 6 MONTHS [facility] Test 21:03:26 [code = FLU VACCINE > 6 of M edicine MONTHS] Future Scheduled 2020-07-27 BMI FOLLOW UP PLAN [facility] Test 21:03:26 [code = BMI FOLLOW UP of Med icine PLAN] Future Scheduled 2015-12-30 SHINGLES VACCINES ([address] [facility] 00:00:00 2) [code = SHINGLES Medical Center VACCINES (1 of 2)] Future Scheduled 2015-12-30 SHINGLES VACCINES ([address] [facility] 00:00:00 2) [code = SHINGLES Medical Center VACCINES (1 of 2)] Future Scheduled 2015-12-30 SHINGLES VACCINES ([address] [facility] 00:00:00 2) [code = SHINGLES Medical Center VACCINES (1 of 2)] Future Scheduled 2015-12-30 SHINGLES VACCINES ([address] [facility] 00:00:00 2) [code = SHINGLES Medical Center VACCINES (1 of 2)] Future Scheduled 2015-12-30 SHINGLES VACCINES ([address] [facility] 00:00:00 2) [code = SHINGLES Medical Center VACCINES (1 of 2)] Future Scheduled 2015-12-30 SHINGLES VACCINES ([address] [facility] 00:00:00 2) [code = SHINGLES Medical Center VACCINES (1 of 2)] Future Scheduled 2015-12-30 SHINGLES VACCINES ([address] [facility] 00:00:00 2) [code = SHINGLES Medical Center VACCINES (1 of 2)] Future Scheduled 2015-12-30 SHINGLES VACCINES ([address] [facility] 00:00:00 2) [code = SHINGLES Medical Center VACCINES (1 of 2)] Future Scheduled 2015-12-30 SHINGLES VACCINES ([address] [facility] 00:00:00 2) [code = SHINGLES Medical Center VACCINES (1 of 2)] Future Scheduled 2015-12-30 SHINGLES VACCINES ([address] [facility] 00:00:00 2) [code = SHINGLES Medical Center VACCINES (1 of 2)] Future Scheduled 1984 DTAP/TDAP/TD [facility]ACCINES [facility] 00:00:00 (1 - Tdap) [code = Medical C enter DTAP/TDAP/TD VACCINES (1 - Tdap)] Future Scheduled 1984 DTAP/TDAP/TD VACCINES [facility] 00:00:00 (1 - Tdap) [code = Medical C enter DTAP/TDAP/TD VACCINES (1 - Tdap)] Future Scheduled 1984 DTAP/TDAP/TD [facility]ACCINES [facility] 00:00:00 (1 - Tdap) [code = Medical C enter DTAP/TDAP/TD VACCINES (1 - Tdap)] Future Scheduled 1984 DTAP/TDAP/TD VACCINES [facility] 00:00:00 (1 - Tdap) [code = Medical C enter DTAP/TDAP/TD VACCINES (1 - Tdap)] Future Scheduled 1984 [facility]AP[facility]TDAP[facility]TD [facility] (1 - Tdap) [code = Medical C enter DTAP/TDAP/TD VACCINES (1 - Tdap)] Future Scheduled 1984 DTAP/TDAP/TD [facility]ACCINES [facility] 00:00:00 (1 - Tdap) [code = Medical C enter DTAP/TDAP/TD VACCINES (1 - Tdap)] Future Scheduled 1984 DTAP/TDAP/TD [facility]ACCINES [facility] 00:00:00 (1 - Tdap) [code = Medical C enter DTAP/TDAP/TD VACCINES (1 - Tdap)] Future Scheduled 1984 DTAP/TDAP/TD [facility]ACCINES [facility] 00:00:00 (1 - Tdap) [code = Medical C enter DTAP/TDAP/TD VACCINES (1 - Tdap)] Future Scheduled 1984 DTAP/TDAP/TD [facility]ACCINES [facility] 00:00:00 (1 - Tdap) [code = Medical C enter DTAP/TDAP/TD VACCINES (1 - Tdap)] Future Scheduled 1984 DTAP/TDAP/TD VACCINES [facility] 00:00:00 (1 - Tdap) [code = Medical C enter DTAP/TDAP/TD VACCINES (1 - Tdap)] Future Scheduled 1983-12-30 HEPATITIS C [facility]CRE[facility]ING [facility] [code = HEPATITIS C Medical Center SCREENING] Future Scheduled 1983-12-30 HEPATITIS C [facility]ING [facility]:00:00 [code = HEPATITIS C Medical Center SCREENING] Future Scheduled 1983-12-30 HEPATITIS C [facility]CRE[facility]ING [facility] 00:00:00 [code = HEPATITIS C Medical Center SCREENING] Future Scheduled 1983-12-30 HEPATITIS C [facility]ING [facility] 00:00:00 [code = HEPATITIS C Medical Center SCREENING] Future Scheduled 1983-12-30 HEPATITIS C [facility]ING [facility] 00:00:00 [code = HEPATITIS C Medical Center SCREENING] Future Scheduled 1983-12-30 HEPATITIS C [facility]ING [facility] 00:00:00 [code = HEPATITIS C Medical Center SCREENING] Future Scheduled 1983-12-30 HEPATITIS C [facility]ING [facility] 00:00:00 [code = HEPATITIS C Medical Center SCREENING] Future Scheduled 1983-12-30 HEPATITIS C [facility]ING [facility] 00:00:00 [code = HEPATITIS C Medical Center SCREENING] Future Scheduled 1983-12-30 HEPATITIS C [facility]ING [facility] 00:00:00 [code = HEPATITIS C Medical Center SCREENING] Future Scheduled 1983-12-30 HEPATITIS C [facility]ING [facility] 00:00:00 [code = HEPATITIS C Medical Center SCREENING] Future Scheduled 1965 Screening for malignant [facility] 00:00:00 neoplasm of colon Medical Ce nter (procedure) [code = 613695371] Future Scheduled 1965 CT Colonography (combo) [facility] 00:[facility] [code = CT Colonography [facility] (combo)] Future Scheduled 1965 Screening for malignant [facility] 00:00:00 neoplasm of colon Medical Ce nter (procedure) [code = 225008931] Future Scheduled 1965 Screening for malignant [facility] 00:00:00 neoplasm of colon Medical Ce nter (procedure) [code = 492429419] Future Scheduled 1965 Screening for malignant [facility] 00:00:00 neoplasm of colon Medical Ce nter (procedure) [code = 284843669] Future Scheduled 1965 Screening for malignant [facility] 00:00:00 neoplasm of colon Medical Ce nter (procedure) [code = 890424239] Future Scheduled 1965 Sigmoidoscopy [code = [facility] S[facility]oidoscopy] Medical Cente r Future Scheduled 1965 CT Colonography (combo) [facility] 00:00:00 [code = [facility] Future Scheduled 1965 Screening for malignant [facility] 00:00:00 neoplasm of colon Medical Ce nter (procedure) [code = 246307586] Future Scheduled 1965 Screening for malignant [facility] 00:00:00 neoplasm of colon Medical Ce nter (procedure) [code = 924548827] Future Scheduled 1965 Screening for malignant [facility] 00:00:00 neoplasm of colon Medical Ce nter (procedure) [code = 073167286] Future Scheduled 1965 Screening for malignant [facility] 00:00:00 neoplasm of colon Medical Ce nter (procedure) [code = 123052987] Future Scheduled 1965 Sigmoidoscopy [code = [facility] Sigmoidoscopy] Medical Cente r Future Scheduled 1965 CT Colonography (combo) [facility] 00:00:00 [code = CT Colonography [facility] (combo)] Future Scheduled 1965 Screening for malignant [facility] 00:00:00 neoplasm of colon Medical Ce nter (procedure) [code = 623655466] Future Scheduled 1965 Screening for malignant [facility] 00:00:00 neoplasm of colon Medical Ce nter (procedure) [code = 993866640] Future Scheduled 1965 Screening for malignant [facility] 00:00:00 neoplasm of colon Medical Ce nter (procedure) [code = 971443207] Future Scheduled 1965 Screening for malignant [facility] 00:00:00 neoplasm of colon Medical Ce nter (procedure) [code = 013309399] Future Scheduled 1965 Sigmoidoscopy [code = [facility] 00:[facility] Sigmoidoscopy] Medical Cente r Future Scheduled 1965 CT Colonography (combo) [facility] 00:00:00 [code = [facility] Future Scheduled 1965 Screening for malignant [facility] 00:00:00 neoplasm of colon Medical Ce nter (procedure) [code = 414088367] Future Scheduled 1965 Screening for malignant [facility] 00:00:00 neoplasm of colon Medical Ce nter (procedure) [code = 550159479] Future Scheduled 1965 Screening for malignant [facility] 00:00:00 neoplasm of colon Medical Ce nter (procedure) [code = 582622350] Future Scheduled 1965 Screening for malignant [facility] 00:00:00 neoplasm of colon Medical Ce nter (procedure) [code = 580397002] Future Scheduled 1965 Sigmoidoscopy [facility]code = [facility] S[facility]oidoscopy] [facility] Future Scheduled 1965 CT Colonography (combo) [facility] 00:00:00 [code = CT Colonography [facility] (combo)] Future Scheduled 1965 Screening for malignant [facility] 00:00:00 neoplasm of colon Medical Ce nter (procedure) [code = 243509734] Future Scheduled 1965 Screening for malignant [facility] 00:00:00 neoplasm of colon Medical Ce nter (procedure) [code = 323205109] Future Scheduled 1965 Screening for malignant [facility] 00:00:00 neoplasm of colon Medical Ce nter (procedure) [code = 629870384] Future Scheduled 1965 Screening for malignant [facility] 00:00:00 neoplasm of colon Medical Ce nter (procedure) [code = 058420397] Future Scheduled 1965 Sigmoidoscopy [facility]code = [facility] S[facility]oidoscopy] [facility] Future Scheduled 1965 CT Colonography (combo) [facility] 00:00:00 [code = CT Colonography [facility] (combo)] Future Scheduled 1965 Screening for malignant [facility] 00:00:00 neoplasm of colon Medical Ce nter (procedure) [code = 186693975] Future Scheduled 1965 Screening for malignant [facility] 00:00:00 neoplasm of colon Medical Ce nter (procedure) [code = 987374629] Future Scheduled 1965 Screening for malignant [facility] 00:00:00 neoplasm of colon Medical Ce nter (procedure) [code = 798451712] Future Scheduled 1965 Screening for malignant [facility] 00:00:00 neoplasm of colon Medical Ce nter (procedure) [code = 136483009] Future Scheduled 1965 Sigmoidoscopy [facility]code = [facility] S[facility]oidoscopy] Medical Cente r Future Scheduled 1965 CT Colonography (combo) [facility] 00:00:00 [code = CT [facility]ography [facility] ([facility])] Future Scheduled 1965 Screening for malignant [facility] 00:00:00 neoplasm of colon Medical Ce nter (procedure) [code = 873731286] Future Scheduled 1965 Screening for malignant [facility] 00:00:00 neoplasm of colon Medical Ce nter (procedure) [code = 984074836] Future Scheduled 1965 Screening for malignant [facility] 00:00:00 neoplasm of colon Medical Ce nter (procedure) [code = 547473863] Future Scheduled 1965 Screening for malignant [facility] 00:00:00 neoplasm of colon Medical Ce nter (procedure) [code = 190298401] Future Scheduled 1965 Sigmoidoscopy [code = [facility] 00:[facility] Sigmoidoscopy] Medical Cente r Future Scheduled 1965 CT Colonography (combo) [facility] 00:00:00 [code = [facility] Future Scheduled 1965 Screening for malignant [facility] 00:00:00 neoplasm of colon Medical Ce nter (procedure) [code = 087122599] Future Scheduled 1965 Screening for malignant [facility] 00:00:00 neoplasm of colon Medical Ce nter (procedure) [code = 688624362] Future Scheduled 1965 Screening for malignant [facility] 00:00:00 neoplasm of colon Medical Ce nter (procedure) [code = 203601372] Future Scheduled 1965 Screening for malignant [facility] 00:00:00 neoplasm of colon Medical Ce nter (procedure) [code = 445337021] Future Scheduled 1965 Sigmoidoscopy [facility]code = [facility] S[facility]oidoscopy] [facility] r Future Scheduled 1965 CT Colonography (combo) [facility] 00:00:00 [code = CT Colonography [facility] (combo)] Future Scheduled 1965 Screening for malignant [facility] 00:00:00 neoplasm of colon Medical Ce nter (procedure) [code = 805378441] Future Scheduled 1965 Screening for malignant [facility] 00:00:00 neoplasm of colon Medical Ce nter (procedure) [code = 383834598] Future Scheduled 1965 Screening for malignant [facility] 00:00:00 neoplasm of colon Medical Ce nter (procedure) [code = 170212516] Future Scheduled 1965 Screening for malignant [facility] 00:00:00 neoplasm of colon Medical Ce nter (procedure) [code = 856370864] Future Scheduled 1965 Sigmoidoscopy [facility]code = [facility] S[facility]] [facility] r Future Scheduled Screening for malignant [facility] [employer] Test neoplasm of colon of Medicin e (procedure) [code = 173367963] Future Scheduled TETANUS SHOT (ADULT) [employer] [facility] [code = TETANUS SHOT of Medi cine (ADULT)] Future Scheduled BMI FOLLOW UP PLAN [employer] Test [code = BMI FOLLOW UP of Med icine PLAN] Future Scheduled Hepatitis C screening [employer] Test (procedure) [code = of Medic ine 049100392] [facility] (procedure) [code = 505326307] Future Scheduled ZOSTER VACCINE (1 of 2) [facility] [employer] Test [code = ZOSTER VACCINE of Me dicine (1 of 2)] Future Scheduled FLU VACCINE > 6 MONTHS [facility] [code = FLU VACCINE > 6 of M edicine MONTHS] Future Scheduled CT HEAD WO CONTRAST 1 Occurrences [employer] [facility] [place] Test [code = 61572-2] starting of Medicine 07/03/2020 until 07/03/2021 Goal Plan of Care Note [code = 14892-7] Goal Plan of Care Note [code = 63847-1] Goal Plan of Care Note [code = 15710-4] Goal Plan of Care Note [code = 98876-1] Goal Plan of Care Note [code = 28449-3] Goal Plan of Care Note [code = 81970-5] Goal Plan of Care Note [code = 44880-6] Goal Plan of Care Note [code = 11374-2] Goal Plan of Care Note [code = 32607-9] Goal Plan of Care Note [code = 67417-0] Goal Plan of Care Note [code = 51011-7] Goal Plan of Care Note [code = 62782-8] Goal Plan of Care Note [code = 82913-1] Goal Plan of Care Note [code = 68095-0] Goal Plan of Care Note [code = 16992-5] Goal Plan of Care Note [code = 95558-2] Goal Plan of Care Note [code = 67108-2] Goal Plan of Care Note [code = 34781-1] Goal Plan of Care Note [code = 50346-8] Goal Plan of Care Note [code = 19281-9] Goal Plan of Care Note [code = 44458-5] Goal Plan of Care Note [code = 75848-5] Goal Plan of Care Note [code = 54976-6] Goal Plan of Care Note [code = 19363-3] Goal Plan of Care Note [code = 24470-6] Goal Plan of Care Note [code = 49125-9] Goal Plan of Care Note [code = 33541-6] Goal Plan of Care Note [code = 66136-0] Goal Plan of Care Note [code = 26764-5] Goal Plan of Care Note [code = 73441-7] Goal Plan of Care Note [code = 38022-5] Goal Plan of Care Note [code = 16695-5] Goal Plan of Care Note [code = 67582-0] Goal Plan of Care Note [code = 65911-8] Goal Plan of Care Note [code = 22522-2] Goal Plan of Care Note [code = 56439-1] Goal Plan of Care Note [code = 74096-1] Goal Plan of Care Note [code = 41906-7] Goal Plan of Care Note [code = 95372-6] Goal Plan of Care Note [code = 19563-0] Goal Plan of Care Note [code = 43432-5] Goal Plan of Care Note [code = 49429-4] Goal Plan of Care Note [code = 94450-1] Goal Plan of Care Note [code = 40698-5] Goal Plan of Care Note [code = 05446-5] Goal Plan of Care Note [code = 92261-8] Goal Plan of Care Note [code = 53935-5] Goal Plan of Care Note [code = 60648-5] Goal Plan of Care Note [code = 42283-4] Goal Plan of Care Note [code = 68649-6] Goal Plan of Care Note [code = 81208-7] Goal Plan of Care Note [code = 03369-7] Encounters Start End Encounter Admission Attending Care Care Encounter Source Date/Time Date/Time Type Type Clinicians Facility Department ID 2020-12-27 Inpatient ER CINDYFOXENEIDA [facility] Neurology [id number] SLE 11:52:04 MOHAMMAD 2020-06-16 Inpatient ER COLTON [facility] Neurosurger [id number] SLE 19:54:00 KATHY y 2022-01-15 2022-01-15 Outpatient SFA [facility] [id number] Bryan 16:35:49 16:35:49 [id number] F Vijay 2022-01-15 2022-01-15 Outpatient [id number] 4d 640acb-7 00:00:00 00:00:00 Visit 4m93-74ef m15-42wd-h -t92b-4z2 82e-7f77b4 6a656kx6u 04fd0c 2022-01-08 2022-01-08 Outpatient SFA [facility] [id number] Bryan 15:49:39 15:49:39 [id number] F Vijay 2021-12-08 2021-12-08 Outpatient [id number]- [id number] 4e ot5b8x-m 00:00:00 00:00:00 Visit zm67-332r s63-788c-0 -5v85-036 [id number] 286q2v3i0 c2a3d4 2021-11-14 2021-11-14 Outpatient [id number] 3032fc-d 00:00:00 00:00:00 Visit k060-17ny 301-43be-b -n352-09g 483-06f4d1 9s6id2kfx af4dcb 2021-11-06 2021-11-06 Outpatient [id number] 8e [id number]-8 00:00:00 00:00:00 Visit 36x2-1266 0d3-4989-h -i5u6-2jx 8a0-7eq7w8 4t8t41p27 c62b91 2020-07-21 2020-07-21 Office [facility] 1.2.840.114 [id number] [facility] 08:02:38 13:12:44 Visit , Odilon AMBULATOR 350.1.13.21 College Y 0.2.7.2.686 of [id number] [facility] 300 e 2020-07-21 2020-07-21 Office [facility] 1.2.840.114 [id number] 08:02:38 13:12:44 Visit , Odilon AMBULATOR 350.1.13.21 Y 0.2.7.2.686 [id number] 300 2020-07-18 2020-07-18 Outpatient RAMU [facility]VARES [facility] [id number] [facility] 09:20:00 09:20:00 RAMU SO aime [facility] 2020-07-11 2020-07-11 Out[facility] 9 [id number] [facility] 00:00:00 00:00:00 BETTINA 2020-07-03 2020-07-03 Office BRYN Isaac 1.2.840.114 [id number] [facility] 12:08:37 14:38:23 Visit Bettina AMBULATOR 350.1.13.21 College Max Y 0.2.7.2.686 of [id number] [facility] 300 e 2020-07-03 2020-07-03 Office BRYN Isaac 1.2.840.114 [id number] 12:08:37 14:38:23 Visit Bettina AMBULATOR 350.1.13.21 Max Y 0.2.7.2.686 [id number] 300 2020-05-16 2020-05-16 Outpatient Brittany [facility] [id number] [facility] 09:30:00 09:30:00 VIANNEY [facility] 2020-05-09 2020-05-09 Outpatient Brittany [facility] [id number] [facility] 09:30:00 09:30:00 VIANNEY [facility] 2020-04-18 2020-04-18 Outpatient Brittany [facility] [id number] [facility] 09:10:00 09:10:00 VIANNEY [facility] 2020-01-29 2020-01-29 [facility] 1.2.840.114 [id number] Univers 14:33:00 23:59:00 Encounter Kenn Cintron 350.1.13.10 ity of [facility] 4.2.7.2.686 Laureano as [id number] [facility] [address] [place] 2020-01-29 2020-01-29 [facility] 1.2.840.114 [id number] 14:33:00 23:59:00 Encounter Kenn Cintron 350.1.13.10 BUILDING 4.2.7.2.686 [id number] 2020-01-29 2020-01-29 [email or web address] ACO [id number] Univers 00:00:00 00:00:00 KENN lopez [facility] 2020-01-29 2020-01-29 Orders Doctor BURRELL 1.2.840.114 [id number] Univers 00:00:00 00:00:00 Only Unassigned, MANUEL 350.1.13.10 ity of [place] [facility] 4.2.7.2.686 Laureano as [id number] [facility] [address] [place] 2020-01-29 2020-01-29 Orders Doctor ASHANTI Diaz2.840.114 [id number] 00:00:00 00:00:00 Only Unassigned, MANUEL 350.1.13.10 [place] [facility] 4.2.7.2.686 [id number] 2020-01-28 2020-01-28 [email or web address] 1.2.840.114 [id number] Univers 11:17:09 12:03:56 Visit [facility] 350.1.13.10 ity of [place] 4.2.7.2.686 Laureano as Professio [id number] [address] Office [address] 2020-01-28 2020-01-28 [email or web address] [id number] 11:17:09 12:03:56 Visit [facility] [id number] [place] [id number] Professio [phone] [place] [address] Office [address] One 2020-01-28 2020-01-28 Outpatient R [facility] [id number] [facility] 11:30:00 11:30:00 [facility] o f [facility] 2020-01-28 2020-01-28 Letter Doctor ASHANTI [id number] Univers 00:00:00 00:00:00 (Out) Unassigned, MANUEL [id number] ity of [place] [facility] 4.2.7.2.686 [place] as [phone] [address] 2019-12-19 2019-12-19 [email or web address] [id number] Univers 00:00:00 00:00:00 [facility] [id number] ity of [place] [id number] [place] as Professio [phone] [address] Office Building One 2018-12-07 2018-12-07 Orders Doctor ASHANTI [id number] Univers 00:00:00 00:00:00 Only Unassigned, MANUEL [id number] it[facility] of [place] [facility] [id number] [place] as [phone] [address] Results Test Description Test Time Test Comments Results Result Comments Source VITAMIN B-12 2021-12-09 09:21:57 Test Item Value Reference Range Interpretation Comme [facility] VITAMIN B-12 (test code = 2840) 1183 PG/ML 200-950 H VITAMIN D, 25 [id number] 07:12:16 Test Item Value Reference Range Interpretation Comments VITAMIN D, 25 OH 41 NG/ML SEE BELOW NOTE: 25-H YDROXYVITAMIN D (test code = 4958) ASSAY INC LUDES 25-HYDROXYVITAM IN D2 AND D3. METHODOLOGY IS CHEMILUMINESCEN T IMMUNOASSAY. INTERPRETIVE RA NGES PEDIATRIC (<17 YEARS) . . . . . . . . . . . NG/ML 20-100ADULT: IN SUFFICIENT . . . . . . . . . . . . . . NG/ML <20 SUBOP TIMAL . . . . . . . . . . . . . . . NG/ML 20-29 OPT IMAL . . . . . . . . . . . . . . . . . NG/ML 30-100 UN LESS OTHERWISE INDIC ATED, ALL TESTING PERFORM ED [facility] PATH [facility]. [address] [place] [address] LABORATORY DIRE CTOR: Mariana VYAS CLIA NUMBER [id number] CAP ACCREDITATION N O. [id number] 06:57:09 Test Item Value Reference Range Interpretation Comments MAGNESIUM (test code = 2226) 2.4 MG/DL 1.6-2.6 [id number] 00:00:00 Test Item Value Reference Range Interpretation Comments MAGNESIUM (test code = 2226) 2.4 MG/DL [id number] 00:00:00 Test Item Value Reference Range Interpretation Comments MAGNESIUM (test code = 2226) 2.4 MG/DL [id number] 00:00:00 Test Item Value Reference Range Interpretation Comments MAGNESIUM (test code = 2226) 2.4 MG/DL VITAMIN [id number] 00:00:00 Test Item Value Reference Range Interpretation Comments VITAMIN B-12 (test code = 2840) 1183 PG/ML VITAMIN [id number] 00:00:00 Test Item Value Reference Range Interpretation Comments VITAMIN B-12 (test code = 2840) 1183 PG/ML VITAMIN [id number] 00:00:00 Test Item Value Reference Range Interpretation Comments VITAMIN B-12 (test code = 2840) 1183 PG/ML VITAMIN D, 25 [id number] 00:00:00 Test Item Value Reference Range Interpretation Comments VITAMIN D, 25 OH (test code = 4958) 41 NG/ML VITAMIN D, 25 [id number] 00:00:00 Test Item Value Reference Range Interpretation Comments VITAMIN D, 25 OH (test code = 4958) 41 NG/ML [id number] 00:00:00 Test Item Value Reference Range Interpretation Comments MAGNESIUM (test code = 2226) 2.4 MG/DL [id number] 00:00:00 Test Item Value Reference Range Interpretation Comments MAGNESIUM (test code = 2226) 2.4 MG/DL [id number] 00:00:00 Test Item Value Reference Range Interpretation Comments MAGNESIUM (test code = 2226) 2.4 MG/DL VITAMIN [id number] 00:00:00 Test Item Value Reference Range Interpretation Comments VITAMIN B-12 (test code = 2840) 1183 PG/ML VITAMIN [id number] 00:00:00 Test Item Value Reference Range Interpretation Comments VITAMIN B-12 (test code = 2840) 1183 PG/ML VITAMIN [id number] 00:00:00 Test Item Value Reference Range Interpretation Comments VITAMIN B-12 (test code = 2840) 1183 PG/ML VITAMIN D, 25 [id number] 00:00:00 Test Item Value Reference Range Interpretation Comments VITAMIN D, 25 OH (test code = 4958) 41 NG/ML VITAMIN D, 25 [id number] 00:00:00 Test Item Value Reference Range Interpretation Comments VITAMIN D, 25 OH (test code = 4958) 41 NG/ML OCCULT BLD,FECAL,IMMUNOASSAY [id number] 10:19:36 Test Item Value Reference Range Interpretation Comments OCCULT BLD, FECAL NEGATIVE NEGATIVE UNLESS OT HERWISE (test code = 84562) INDICATE D, ALL TESTING PERFORMED ATCLI NICAL PATHOLOGY LABOR [facility] [address] [place] [address] [facility] DIRECTOR: JT CALLEJAS M.D. CLIA NUMBER [id number] CAP ACCREDITATION N O. [id number] OCCULT BLD,FECAL,IMMUNOASSAY [id number] 00:00:00 Test Item Value Reference Range Interpretation Comments OCCULT BLD, FECAL (test code = NEGATIVE 43545) OCCULT BLD,FECAL,IMMUNOASSAY [id number] 00:00:00 Test Item Value Reference Range Interpretation Comments OCCULT BLD, FECAL (test code = NEGATIVE 63910) OCCULT BLD,FECAL,IMMUNOASSAY [id number] 00:00:00 Test Item Value Reference Range Interpretation Comments OCCULT BLD, FECAL (test code = NEGATIVE 29150) OCCULT BLD,FECAL,IMMUNOASSAY [id number] 00:00:00 Test Item Value Reference Range Interpretation Comments OCCULT BLD, FECAL (test code = NEGATIVE 01453) OCCULT BLD,FECAL,IMMUNOASSAY [id number] 00:00:00 Test Item Value Reference Range Interpretation Comments OCCULT BLD, FECAL (test code = NEGATIVE 81335) OCCULT BLD,FECAL,IMMUNOASSAY [id number] 00:00:00 Test Item Value Reference Range Interpretation Comments OCCULT BLD, FECAL (test code = NEGATIVE 33296) OCCULT BLD,FECAL,IMMUNOASSAY [id number] 00:00:00 Test Item Value Reference Range Interpretation Comments OCCULT BLD, FECAL (test code = NEGATIVE 74673) OCCULT BLD,FECAL,IMMUNOASSAY [id number] 00:00:00 Test Item Value Reference Range Interpretation Comments OCCULT BLD, FECAL (test code = NEGATIVE 32221) OCCULT BLD,FECAL,IMMUNOASSAY [id number] 00:00:00 Test Item Value Reference Range Interpretation Comments OCCULT BLD, FECAL (test code = NEGATIVE 07346) PSA, [id number] 18:49:23 Test Item Value Reference Range Interpretation Comments PSA, TOTAL 0.49 NG/ML See_Comment NOTE: Methodol adiny is Dulce (test code = Drew Electroch emiluminescence 2606) Immunoassay tra ceable to WHO reference stand abbey 96/760. [Automated mess age] The system which generated this result transmitted ref erence range: <=4.00. The ref erence range was not used to int erpret this result as tito l/abnormal. HIV 1/2 4TH GEN, RFLX [id number] 02:55:39 Test Item Value Reference Range Interpretation Comments HIV 1/2 4TH GEN, NON-REACTIVE NON-REACTIVE UNLESS OTH ERWISE RFLX CONF (test INDICATED, A LL TESTING code = 3514) PERFORMED [facility] PATHOLOGY [facility], [facility]. [address] [place] [address] [facility] DIRECTOR: JT CALLEJAS M.D. CLIA NUMBER [id number] CAP ACCREDITATION N O. [id number] PSA, [id number] 00:00:00 Test Item Value Reference Range Interpretation Comments PSA, TOTAL (test code = 2606) 0.49 NG/ML PSA, [id number] 00:00:00 Test Item Value Reference Range Interpretation Comments PSA, TOTAL (test code = 2606) 0.49 NG/ML PSA, [id number] 00:00:00 Test Item Value Reference Range Interpretation Comments PSA, TOTAL (test code = 2606) 0.49 NG/ML HIV 1/2 4TH GEN, RFLX [id number] 00:00:00 Test Item Value Reference Range Interpretation Comments HIV 1/2 4TH GEN, RFLX CONF (test NON-REACTIVE code = 3514) HIV 1/2 4TH GEN, RFLX [id number] 00:00:00 Test Item Value Reference Range Interpretation Comments HIV 1/2 4TH GEN, RFLX CONF (test NON-REACTIVE code = 3514) PSA, [id number] 00:00:00 Test Item Value Reference Range Interpretation Comments PSA, TOTAL (test code = 2606) 0.49 NG/ML PSA, [id number] 00:00:00 Test Item Value Reference Range Interpretation Comments PSA, TOTAL (test code = 2606) 0.49 NG/ML PSA, [id number] 00:00:00 Test Item Value Reference Range Interpretation Comments PSA, TOTAL (test code = 2606) 0.49 NG/ML PSA, [id number] 00:00:00 Test Item Value Reference Range Interpretation Comments PSA, TOTAL (test code = 2606) 0.49 NG/ML HIV 1/2 4TH GEN, RFLX [id number] 00:00:00 Test Item Value Reference Range Interpretation Comments HIV 1/2 4TH GEN, RFLX CONF (test NON-REACTIVE code = 3514) PSA, [id number] 00:00:00 Test Item Value Reference Range Interpretation Comments PSA, TOTAL (test code = 2606) 0.49 NG/ML PSA, [id number] 00:00:00 Test Item Value Reference Range Interpretation Comments PSA, TOTAL (test code = 2606) 0.49 NG/ML HIV 1/2 4TH GEN, RFLX [id number] 00:00:00 Test Item Value Reference Range Interpretation Comments HIV 1/2 4TH GEN, RFLX CONF (test NON-REACTIVE code = 3514) HIV 1/2 4TH GEN, RFLX [id number] 00:00:00 Test Item Value Reference Range Interpretation Comments HIV 1/2 4TH GEN, RFLX CONF (test NON-REACTIVE code = 3514) HIV 1/2 4TH GEN, RFLX [id number] 00:00:00 Test Item Value Reference Range Interpretation Comments HIV 1/2 4TH GEN, RFLX CONF (test NON-REACTIVE code = 3514) PSA, [id number] 00:00:00 Test Item Value Reference Range Interpretation Comments PSA, TOTAL (test code = 2606) 0.49 NG/ML PSA, [id number] 00:00:00 Test Item Value Reference Range Interpretation Comments PSA, TOTAL (test code = 2606) 0.49 NG/ML PSA, [id number] 00:00:00 Test Item Value Reference Range Interpretation Comments PSA, TOTAL (test code = 2606) 0.49 NG/ML HIV 1/2 4TH GEN, RFLX [id number] 00:00:00 Test Item Value Reference Range Interpretation Comments HIV 1/2 4TH GEN, RFLX CONF (test NON-REACTIVE code = 3514) HIV 1/2 4TH GEN, RFLX [id number] 00:00:00 Test Item Value Reference Range Interpretation Comments HIV 1/2 4TH GEN, RFLX CONF (test NON-REACTIVE code = 3514) LIPID [id number] 03:15:18 Test Item Value Reference Range Interpretation Comments CHOLESTEROL (test 211 MG/DL <200 H code = 2210) TRIGLYCERIDES (test 81 MG/DL <150 code = 2232) HDL CHOLESTEROL (test 43 MG/DL >39 code = 2220) CALC LDL CHOL (test 150 MG/DL <100 H NOTE: C ALCULATED LDL code = 2237) IS BASED ON HUAN-FERNANDEZ METHOD WHICHINCLUDES ADJUSTABLE TRIGLYCERIDE:VL DL CHOLESTEROL RAT IO.THIS FACTOR VARIES B Y MEASURED TRIGLY CERIDE AND NON-HDLCHOL ESTEROL CONCENTRATIONS WITH INCREASED CALCU LATED LDL SEENIN HIGH ER TRIGLYCERIDE OR LOWER NON-HDL SPECIME NS. FOR MOREINFORMATION , SEE CLIENT ANNOUNCE MENT AT [email or web address] RISK RATIO LDL/HDL 3.49 RATIO <3.55 (test code = 2238) COMPREHENSIVE METABOLIC [id number] 03:15:18 Test Item Value Reference Range Interpretation Comments GLUCOSE (test code = 99 MG/DL 70-99 2216) BUN (test code = 23 MG/DL 6-20 H 2207) CREATININE (test 1.10 MG/DL 0.80-1.40 code = 221) eGFR (2020 CKD-EPI) 79 ML/MIN/1.73 >60 (test code = 78715) CALC BUN/CREAT (test 21 RATIO 6-28 code = 2235) SODIUM (test code = 138 MEQ/L 437-136 2166) POTASSIUM (test code 4.4 MEQ/L 3.5-5.4 = 2227) CHLORIDE (test code 101 MEQ/L 95-107 = 2214) CARBON DIOXIDE (test 23 MEQ/L 19-31 code = 2206) CALCIUM (test code = 9.1 MG/DL 8.5-10.5 2208) PROTEIN, TOTAL (test 7.0 G/DL 6.1-8.3 code = 222) ALBUMIN (test code = 4.7 G/DL 3.5-5.2 2200) CALC GLOBULIN (test 2.3 G/DL 1.9-3.7 code = 2240) CALC A/G RATIO (test 2.0 RATIO 1.0-2.6 code = 2234) BILIRUBIN, TOTAL 0.6 MG/DL See_Comment [Automated message] (test code = 2207) The syste m which generated this result transmit franki reference range : <=1.2. The refe rence range was not u sed to interpret th is result as normal/abnormal . ALKALINE PHOSPHATASE 65 U/L 40-121 (test code = 2204) AST (test code = 19 U/L 9-50 2217) ALT (test code = 19 U/L 5-50 2218) COMPREHENSIVE METABOLIC [id number] 00:00:00 Test Item Value Reference Range Interpretation Comments GLUCOSE (test code = 2217) 99 MG/DL BUN (test code = 2208) 23 MG/DL CREATININE (test code = 2214) 1.10 MG/DL eGFR (2020 CKD-EPI) (test code 79 ML/MIN/1.73 = 96127) CALC BUN/CREAT (test code = 21 RATIO 2235) SODIUM (test code = 2231) 138 MEQ/L POTASSIUM (test code = 2228) 4.4 MEQ/L CHLORIDE (test code = 2215) 101 MEQ/L CARBON DIOXIDE (test code = 23 MEQ/L 2205) CALCIUM (test code = 2209) 9.1 MG/DL PROTEIN, TOTAL (test code = 7.0 G/DL 2228) ALBUMIN (test code = 2201) 4.7 G/DL CALC GLOBULIN (test code = 2.3 G/DL 2239) CALC A/G RATIO (test code = 2.0 RATIO 2233) BILIRUBIN, TOTAL (test code = 0.6 MG/DL 2206) ALKALINE PHOSPHATASE (test 65 U/L code = 2204) AST (test code = 2218) 19 U/L ALT (test code = 2219) 19 U/L LIPID [id number] 00:00:00 Test Item Value Reference Range Interpretation Comments CHOLESTEROL (test code = 2210) 211 MG/DL TRIGLYCERIDES (test code = 2232) 81 MG/DL HDL CHOLESTEROL (test code = 2220) 43 MG/DL CALC LDL CHOL (test code = 2237) 150 MG/DL RISK RATIO LDL/HDL (test code = 3.49 RATIO 2238) LIPID [id number] 00:00:00 Test Item Value Reference Range Interpretation Comments CHOLESTEROL (test code = 2210) 211 MG/DL TRIGLYCERIDES (test code = 2232) 81 MG/DL HDL CHOLESTEROL (test code = 2220) 43 MG/DL CALC LDL CHOL (test code = 2237) 150 MG/DL RISK RATIO LDL/HDL (test code = 3.49 RATIO 2238) COMPREHENSIVE METABOLIC [id number] 00:00:00 Test Item Value Reference Range Interpretation Comments GLUCOSE (test code = 2217) 99 MG/DL BUN (test code = 2208) 23 MG/DL CREATININE (test code = 2214) 1.10 MG/DL eGFR (2020 CKD-EPI) (test code 79 ML/MIN/1.73 = 47361) CALC BUN/CREAT (test code = 21 RATIO 2235) SODIUM (test code = 2231) 138 MEQ/L POTASSIUM (test code = 2228) 4.4 MEQ/L CHLORIDE (test code = 2215) 101 MEQ/L CARBON DIOXIDE (test code = 23 MEQ/L 2205) CALCIUM (test code = 2209) 9.1 MG/DL PROTEIN, TOTAL (test code = 7.0 G/DL 2228) ALBUMIN (test code = 2201) 4.7 G/DL CALC GLOBULIN (test code = 2.3 G/DL 2239) CALC A/G RATIO (test code = 2.0 RATIO 2234) BILIRUBIN, TOTAL (test code = 0.6 MG/DL 2206) ALKALINE PHOSPHATASE (test 65 U/L code = 2204) AST (test code = 2218) 19 U/L ALT (test code = 2219) 19 U/L COMPREHENSIVE METABOLIC [id number] 00:00:00 Test Item Value Reference Range Interpretation Comments GLUCOSE (test code = 2217) 99 MG/DL BUN (test code = 2208) 23 MG/DL CREATININE (test code = 2214) 1.10 MG/DL eGFR (2020 CKD-EPI) (test code 79 ML/MIN/1.73 = 34460) CALC BUN/CREAT (test code = 21 RATIO 2235) SODIUM (test code = 2231) 138 MEQ/L POTASSIUM (test code = 2228) 4.4 MEQ/L CHLORIDE (test code = 2215) 101 MEQ/L CARBON DIOXIDE (test code = 23 MEQ/L 2205) CALCIUM (test code = 2209) 9.1 MG/DL PROTEIN, TOTAL (test code = 7.0 G/DL 2228) ALBUMIN (test code = 2201) 4.7 G/DL CALC GLOBULIN (test code = 2.3 G/DL 2239) CALC A/G RATIO (test code = 2.0 RATIO 2234) BILIRUBIN, TOTAL (test code = 0.6 MG/DL 2206) ALKALINE PHOSPHATASE (test 65 U/L code = 2204) AST (test code = 2218) 19 U/L ALT (test code = 2219) 19 U/L LIPID [id number] 00:00:00 Test Item Value Reference Range Interpretation Comments CHOLESTEROL (test code = 2210) 211 MG/DL TRIGLYCERIDES (test code = 2232) 81 MG/DL HDL CHOLESTEROL (test code = 2220) 43 MG/DL CALC LDL CHOL (test code = 2237) 150 MG/DL RISK RATIO LDL/HDL (test code = 3.49 RATIO 2238) LIPID [id number] 00:00:00 Test Item Value Reference Range Interpretation Comments CHOLESTEROL (test code = 2210) 211 MG/DL TRIGLYCERIDES (test code = 2232) 81 MG/DL HDL CHOLESTEROL (test code = 2220) 43 MG/DL CALC LDL CHOL (test code = 2237) 150 MG/DL RISK RATIO LDL/HDL (test code = 3.49 RATIO 2238) COMPREHENSIVE METABOLIC [id number] 00:00:00 Test Item Value Reference Range Interpretation Comments GLUCOSE (test code = 2217) 99 MG/DL BUN (test code = 2208) 23 MG/DL CREATININE (test code = 2214) 1.10 MG/DL eGFR (2020 CKD-EPI) (test code 79 ML/MIN/1.73 = 28698) CALC BUN/CREAT (test code = 21 RATIO 2235) SODIUM (test code = 2231) 138 MEQ/L POTASSIUM (test code = 2228) 4.4 MEQ/L CHLORIDE (test code = 2215) 101 MEQ/L CARBON DIOXIDE (test code = 23 MEQ/L 2205) CALCIUM (test code = 2209) 9.1 MG/DL PROTEIN, TOTAL (test code = 7.0 G/DL 2228) ALBUMIN (test code = 2201) 4.7 G/DL CALC GLOBULIN (test code = 2.3 G/DL 0) CALC A/G RATIO (test code = 2.0 RATIO 2234) BILIRUBIN, TOTAL (test code = 0.6 MG/DL 2206) ALKALINE PHOSPHATASE (test 65 U/L code = 2204) AST (test code = 2218) 19 U/L ALT (test code = 2219) 19 U/L COMPREHENSIVE METABOLIC [id number] 00:00:00 Test Item Value Reference Range Interpretation Comments GLUCOSE (test code = 2217) 99 MG/DL BUN (test code = 2208) 23 MG/DL CREATININE (test code = 2214) 1.10 MG/DL eGFR (2020 CKD-EPI) (test code 79 ML/MIN/1.73 = 30915) CALC BUN/CREAT (test code = 21 RATIO 2235) SODIUM (test code = 2231) 138 MEQ/L POTASSIUM (test code = 2228) 4.4 MEQ/L CHLORIDE (test code = 2215) 101 MEQ/L CARBON DIOXIDE (test code = 23 MEQ/L 2205) CALCIUM (test code = 2209) 9.1 MG/DL PROTEIN, TOTAL (test code = 7.0 G/DL 2228) ALBUMIN (test code = 2201) 4.7 G/DL CALC GLOBULIN (test code = 2.3 G/DL 2239) CALC A/G RATIO (test code = 2.0 RATIO 2233) BILIRUBIN, TOTAL (test code = 0.6 MG/DL 2206) ALKALINE PHOSPHATASE (test 65 U/L code = 2204) AST (test code = 2218) 19 U/L ALT (test code = 2219) 19 U/L LIPID [id number] 00:00:00 Test Item Value Reference Range Interpretation Comments CHOLESTEROL (test code = 2210) 211 MG/DL TRIGLYCERIDES (test code = 2232) 81 MG/DL HDL CHOLESTEROL (test code = 2220) 43 MG/DL CALC LDL CHOL (test code = 2237) 150 MG/DL RISK RATIO LDL/HDL (test code = 3.49 RATIO 2238) LIPID [id number] 00:00:00 Test Item Value Reference Range Interpretation Comments CHOLESTEROL (test code = 2210) 211 MG/DL TRIGLYCERIDES (test code = 2232) 81 MG/DL HDL CHOLESTEROL (test code = 2220) 43 MG/DL CALC LDL CHOL (test code = 2237) 150 MG/DL RISK RATIO LDL/HDL (test code = 3.49 RATIO 2238) COMPREHENSIVE METABOLIC [id number] 00:00:00 Test Item Value Reference Range Interpretation Comments GLUCOSE (test code = 2217) 99 MG/DL BUN (test code = 2208) 23 MG/DL CREATININE (test code = 2214) 1.10 MG/DL eGFR (2020 CKD-EPI) (test code 79 ML/MIN/1.73 = 96326) CALC BUN/CREAT (test code = 21 RATIO 2235) SODIUM (test code = 2231) 138 MEQ/L POTASSIUM (test code = 2228) 4.4 MEQ/L CHLORIDE (test code = 2215) 101 MEQ/L CARBON DIOXIDE (test code = 23 MEQ/L 2205) CALCIUM (test code = 2209) 9.1 MG/DL PROTEIN, TOTAL (test code = 7.0 G/DL 2228) ALBUMIN (test code = 2201) 4.7 G/DL CALC GLOBULIN (test code = 2.3 G/DL 2239) CALC A/G RATIO (test code = 2.0 RATIO 2234) BILIRUBIN, TOTAL (test code = 0.6 MG/DL 2206) ALKALINE PHOSPHATASE (test 65 U/L code = 2204) AST (test code = 2218) 19 U/L ALT (test code = 2219) 19 U/L LIPID [id number] 00:00:00 Test Item Value Reference Range Interpretation Comments CHOLESTEROL (test code = 2210) 211 MG/DL TRIGLYCERIDES (test code = 2232) 81 MG/DL HDL CHOLESTEROL (test code = 2220) 43 MG/DL CALC LDL CHOL (test code = 2237) 150 MG/DL RISK RATIO LDL/HDL (test code = 3.49 RATIO 2238) LIPID [id number] 00:00:00 Test Item Value Reference Range Interpretation Comments CHOLESTEROL (test code = 2210) 211 MG/DL TRIGLYCERIDES (test code = 2232) 81 MG/DL HDL CHOLESTEROL (test code = 2220) 43 MG/DL CALC LDL CHOL (test code = 2237) 150 MG/DL RISK RATIO LDL/HDL (test code = 3.49 RATIO 2238) COMPREHENSIVE METABOLIC [id number] 00:00:00 Test Item Value Reference Range Interpretation Comments GLUCOSE (test code = 2217) 99 MG/DL BUN (test code = 2208) 23 MG/DL CREATININE (test code = 2214) 1.10 MG/DL eGFR (2020 CKD-EPI) (test code 79 ML/MIN/1.73 = 19737) CALC BUN/CREAT (test code = 21 RATIO 2235) SODIUM (test code = 2231) 138 MEQ/L POTASSIUM (test code = 2228) 4.4 MEQ/L CHLORIDE (test code = 2215) 101 MEQ/L CARBON DIOXIDE (test code = 23 MEQ/L 2205) CALCIUM (test code = 2209) 9.1 MG/DL PROTEIN, TOTAL (test code = 7.0 G/DL 2228) ALBUMIN (test code = 2201) 4.7 G/DL CALC GLOBULIN (test code = 2.3 G/DL 2240) CALC A/G RATIO (test code = 2.0 RATIO 2234) BILIRUBIN, TOTAL (test code = 0.6 MG/DL 2206) ALKALINE PHOSPHATASE (test 65 U/L code = 2204) AST (test code = 2218) 19 U/L ALT (test code = 2219) 19 U/L COMPREHENSIVE METABOLIC [id number] 00:00:00 Test Item Value Reference Range Interpretation Comments GLUCOSE (test code = 2217) 99 MG/DL BUN (test code = 2208) 23 MG/DL CREATININE (test code = 2214) 1.10 MG/DL eGFR (2020 CKD-EPI) (test code 79 ML/MIN/1.73 = 30983) CALC BUN/CREAT (test code = 21 RATIO 2235) SODIUM (test code = 2231) 138 MEQ/L POTASSIUM (test code = 2228) 4.4 MEQ/L CHLORIDE (test code = 2215) 101 MEQ/L CARBON DIOXIDE (test code = 23 MEQ/L 2205) CALCIUM (test code = 2209) 9.1 MG/DL PROTEIN, TOTAL (test code = 7.0 G/DL 2228) ALBUMIN (test code = 2201) 4.7 G/DL CALC GLOBULIN (test code = 2.3 G/DL 2240) CALC A/G RATIO (test code = 2.0 RATIO 2234) BILIRUBIN, TOTAL (test code = 0.6 MG/DL 2206) ALKALINE PHOSPHATASE (test 65 U/L code = 2204) AST (test code = 2218) 19 U/L ALT (test code = 2219) 19 U/L CBC W/AUTO DIFF WITH [id number] 03:58:08 Test Item Value Reference Range Interpretation Comments WBC (test code = 4.5 K/UL 3.5-11.0 1001) RBC (test code = 4.71 M/UL 4.50-6.10 1002) HEMOGLOBIN (test code 14.6 G/DL 13.5-17.0 = 1003) HEMATOCRIT (test code 44.6 % 40.0-51.0 = 1004) MCV (test code = 94.7 fL 80.0-99.0 1005) MCH (test code = 31.0 PG 25.0-33.0 1006) MCHC (test code = 32.7 G/DL 31.0-36.0 1007) RDW (test code = 13.5 % 11.5-15.0 1038) NEUTROPHILS (test 61.8 % code = 1008) LYMPHOCYTES (test 27.4 % code = 1010) MONOCYTES (test code 7.7 % = 1011) EOSINOPHILS (test 2.0 % code = 1012) BASOPHILS (test code 0.9 % = 1013) IMMATURE GRANULOCYTES 0.2 % (test code = 1036) NUCLEATED RBCS (test 0.0 /100 WBC'S See_Comment [Aut omated code = 1065) message] The sy stem which generated this result transmitted reference range : 0.0. The refere nce range was not u sed to interpret th is result as normal/abnormal . PLATELET COUNT (test 140 K/UL 130-400 code = 1015) ABSOLUTE NEUTROPHILS 2.79 K/UL 1.50-7.50 (test code = 1066) ABSOLUTE LYMPHOCYTES 1.24 K/UL 1.00-4.00 (test code = 1067) ABSOLUTE MONOCYTES 0.35 K/UL 0.20-1.00 (test code = 1068) ABSOLUTE EOSINOPHILS 0.09 K/UL 0.00-0.50 (test code = 1040) ABSOLUTE BASOPHILS 0.04 K/UL 0.00-0.20 (test code = 1069) ABS IMMATURE 0.01 K/UL 0.00-0.10 GRANULOCYTES (test code = 1020) ABS NUCLEATED RBCS 0.02 K/UL 0.00-0.11 (test code = 55490) CBC W/AUTO [id number] 00:00:00 Test Item Value Reference Range Interpretation Comments WBC (test code = 1001) 4.5 K/UL RBC (test code = 1002) 4.71 M/UL HEMOGLOBIN (test code = 1003) 14.6 G/DL HEMATOCRIT (test code = 1004) 44.6 % MCV (test code = 1005) 94.7 fL MCH (test code = 1006) 31.0 PG MCHC (test code = 1007) 32.7 G/DL RDW (test code = 1038) 13.5 % NEUTROPHILS (test code = 1008) 61.8 % LYMPHOCYTES (test code = 1010) 27.4 % MONOCYTES (test code = 1011) 7.7 % EOSINOPHILS (test code = 1012) 2.0 % BASOPHILS (test code = 1013) 0.9 % IMMATURE GRANULOCYTES (test 0.2 % code = 1036) NUCLEATED RBCS (test code = 0.0 /100WBC'S 1065) PLATELET COUNT (test code = 140 K/UL 1015) ABSOLUTE NEUTROPHILS (test code 2.79 K/UL = 1066) ABSOLUTE LYMPHOCYTES (test code 1.24 K/UL = 1067) ABSOLUTE MONOCYTES (test code = 0.35 K/UL 1068) ABSOLUTE EOSINOPHILS (test code 0.09 K/UL = 1040) ABSOLUTE BASOPHILS (test code = 0.04 K/UL 1069) ABS IMMATURE GRANULOCYTES (test 0.01 K/UL code = 1020) ABS NUCLEATED RBCS (test code = 0.02 K/UL 41154) CBC W/AUTO [id number] 00:00:00 Test Item Value Reference Range Interpretation Comments WBC (test code = 1001) 4.5 K/UL RBC (test code = 1002) 4.71 M/UL HEMOGLOBIN (test code = 1003) 14.6 G/DL HEMATOCRIT (test code = 1004) 44.6 % MCV (test code = 1005) 94.7 fL MCH (test code = 1006) 31.0 PG MCHC (test code = 1007) 32.7 G/DL RDW (test code = 1038) 13.5 % NEUTROPHILS (test code = 1008) 61.8 % LYMPHOCYTES (test code = 1010) 27.4 % MONOCYTES (test code = 1011) 7.7 % EOSINOPHILS (test code = 1012) 2.0 % BASOPHILS (test code = 1013) 0.9 % IMMATURE GRANULOCYTES (test 0.2 % code = 1036) NUCLEATED RBCS (test code = 0.0 /100WBC'S 1065) PLATELET COUNT (test code = 140 K/UL 1015) ABSOLUTE NEUTROPHILS (test code 2.79 K/UL = 1066) ABSOLUTE LYMPHOCYTES (test code 1.24 K/UL = 1067) ABSOLUTE MONOCYTES (test code = 0.35 K/UL 1068) ABSOLUTE EOSINOPHILS (test code 0.09 K/UL = 1040) ABSOLUTE BASOPHILS (test code = 0.04 K/UL 1069) ABS IMMATURE GRANULOCYTES (test 0.01 K/UL code = 1020) ABS NUCLEATED RBCS (test code = 0.02 K/UL 02388) CBC W/AUTO [id number] 00:00:00 Test Item Value Reference Range Interpretation Comments WBC (test code = 1001) 4.5 K/UL RBC (test code = 1002) 4.71 M/UL HEMOGLOBIN (test code = 1003) 14.6 G/DL HEMATOCRIT (test code = 1004) 44.6 % MCV (test code = 1005) 94.7 fL MCH (test code = 1006) 31.0 PG MCHC (test code = 1007) 32.7 G/DL RDW (test code = 1038) 13.5 % NEUTROPHILS (test code = 1008) 61.8 % LYMPHOCYTES (test code = 1010) 27.4 % MONOCYTES (test code = 1011) 7.7 % EOSINOPHILS (test code = 1012) 2.0 % BASOPHILS (test code = 1013) 0.9 % IMMATURE GRANULOCYTES (test 0.2 % code = 1036) NUCLEATED RBCS (test code = 0.0 /100WBC'S 1065) PLATELET COUNT (test code = 140 K/UL 1015) ABSOLUTE NEUTROPHILS (test code 2.79 K/UL = 1066) ABSOLUTE LYMPHOCYTES (test code 1.24 K/UL = 1067) ABSOLUTE MONOCYTES (test code = 0.35 K/UL 1068) ABSOLUTE EOSINOPHILS (test code 0.09 K/UL = 1040) ABSOLUTE BASOPHILS (test code = 0.04 K/UL 1069) ABS IMMATURE GRANULOCYTES (test 0.01 K/UL code = 1020) ABS NUCLEATED RBCS (test code = 0.02 K/UL 76554) CBC W/AUTO [id number] 00:00:00 Test Item Value Reference Range Interpretation Comments WBC (test code = 1001) 4.5 K/UL RBC (test code = 1002) 4.71 M/UL HEMOGLOBIN (test code = 1003) 14.6 G/DL HEMATOCRIT (test code = 1004) 44.6 % MCV (test code = 1005) 94.7 fL MCH (test code = 1006) 31.0 PG MCHC (test code = 1007) 32.7 G/DL RDW (test code = 1038) 13.5 % NEUTROPHILS (test code = 1008) 61.8 % LYMPHOCYTES (test code = 1010) 27.4 % MONOCYTES (test code = 1011) 7.7 % EOSINOPHILS (test code = 1012) 2.0 % BASOPHILS (test code = 1013) 0.9 % IMMATURE GRANULOCYTES (test 0.2 % code = 1036) NUCLEATED RBCS (test code = 0.0 /100WBC'S 1065) PLATELET COUNT (test code = 140 K/UL 1015) ABSOLUTE NEUTROPHILS (test code 2.79 K/UL = 1066) ABSOLUTE LYMPHOCYTES (test code 1.24 K/UL = 1067) ABSOLUTE MONOCYTES (test code = 0.35 K/UL 1068) ABSOLUTE EOSINOPHILS (test code 0.09 K/UL = 1040) ABSOLUTE BASOPHILS (test code = 0.04 K/UL 1069) ABS IMMATURE GRANULOCYTES (test 0.01 K/UL code = 1020) ABS NUCLEATED RBCS (test code = 0.02 K/UL 36504) CBC W/AUTO [id number] 00:00:00 Test Item Value Reference Range Interpretation Comments WBC (test code = 1001) 4.5 K/UL RBC (test code = 1002) 4.71 M/UL HEMOGLOBIN (test code = 1003) 14.6 G/DL HEMATOCRIT (test code = 1004) 44.6 % MCV (test code = 1005) 94.7 fL MCH (test code = 1006) 31.0 PG MCHC (test code = 1007) 32.7 G/DL RDW (test code = 1038) 13.5 % NEUTROPHILS (test code = 1008) 61.8 % LYMPHOCYTES (test code = 1010) 27.4 % MONOCYTES (test code = 1011) 7.7 % EOSINOPHILS (test code = 1012) 2.0 % BASOPHILS (test code = 1013) 0.9 % IMMATURE GRANULOCYTES (test 0.2 % code = 1036) NUCLEATED RBCS (test code = 0.0 /100WBC'S 1065) PLATELET COUNT (test code = 140 K/UL 1015) ABSOLUTE NEUTROPHILS (test code 2.79 K/UL = 1066) ABSOLUTE LYMPHOCYTES (test code 1.24 K/UL = 1067) ABSOLUTE MONOCYTES (test code = 0.35 K/UL 1068) ABSOLUTE EOSINOPHILS (test code 0.09 K/UL = 1040) ABSOLUTE BASOPHILS (test code = 0.04 K/UL 1069) ABS IMMATURE GRANULOCYTES (test 0.01 K/UL code = 1020) ABS NUCLEATED RBCS (test code = 0.02 K/UL 31935) CBC W/AUTO [id number] 00:00:00 Test Item Value Reference Range Interpretation Comments WBC (test code = 1001) 4.5 K/UL RBC (test code = 1002) 4.71 M/UL HEMOGLOBIN (test code = 1003) 14.6 G/DL HEMATOCRIT (test code = 1004) 44.6 % MCV (test code = 1005) 94.7 fL MCH (test code = 1006) 31.0 PG MCHC (test code = 1007) 32.7 G/DL RDW (test code = 1038) 13.5 % NEUTROPHILS (test code = 1008) 61.8 % LYMPHOCYTES (test code = 1010) 27.4 % MONOCYTES (test code = 1011) 7.7 % EOSINOPHILS (test code = 1012) 2.0 % BASOPHILS (test code = 1013) 0.9 % IMMATURE GRANULOCYTES (test 0.2 % code = 1036) NUCLEATED RBCS (test code = 0.0 /100WBC'S 1065) PLATELET COUNT (test code = 140 K/UL 1015) ABSOLUTE NEUTROPHILS (test code 2.79 K/UL = 1066) ABSOLUTE LYMPHOCYTES (test code 1.24 K/UL = 1067) ABSOLUTE MONOCYTES (test code = 0.35 K/UL 1068) ABSOLUTE EOSINOPHILS (test code 0.09 K/UL = 1040) ABSOLUTE BASOPHILS (test code = 0.04 K/UL 1069) ABS IMMATURE GRANULOCYTES (test 0.01 K/UL code = 1020) ABS NUCLEATED RBCS (test code = 0.02 K/UL 94666) CBC W/AUTO [id number] 00:00:00 Test Item Value Reference Range Interpretation Comments WBC (test code = 1001) 4.5 K/UL RBC (test code = 1002) 4.71 M/UL HEMOGLOBIN (test code = 1003) 14.6 G/DL HEMATOCRIT (test code = 1004) 44.6 % MCV (test code = 1005) 94.7 fL MCH (test code = 1006) 31.0 PG MCHC (test code = 1007) 32.7 G/DL RDW (test code = 1038) 13.5 % NEUTROPHILS (test code = 1008) 61.8 % LYMPHOCYTES (test code = 1010) 27.4 % MONOCYTES (test code = 1011) 7.7 % EOSINOPHILS (test code = 1012) 2.0 % BASOPHILS (test code = 1013) 0.9 % IMMATURE GRANULOCYTES (test 0.2 % code = 1036) NUCLEATED RBCS (test code = 0.0 /100WBC'S 1065) PLATELET COUNT (test code = 140 K/UL 1015) ABSOLUTE NEUTROPHILS (test code 2.79 K/UL = 1066) ABSOLUTE LYMPHOCYTES (test code 1.24 K/UL = 1067) ABSOLUTE MONOCYTES (test code = 0.35 K/UL 1068) ABSOLUTE EOSINOPHILS (test code 0.09 K/UL = 1040) ABSOLUTE BASOPHILS (test code = 0.04 K/UL 1069) ABS IMMATURE GRANULOCYTES (test 0.01 K/UL code = 1020) ABS NUCLEATED RBCS (test code = 0.02 K/UL 71566) CBC W/AUTO [id number] 00:00:00 Test Item Value Reference Range Interpretation Comments WBC (test code = 1001) 4.5 K/UL RBC (test code = 1002) 4.71 M/UL HEMOGLOBIN (test code = 1003) 14.6 G/DL HEMATOCRIT (test code = 1004) 44.6 % MCV (test code = 1005) 94.7 fL MCH (test code = 1006) 31.0 PG MCHC (test code = 1007) 32.7 G/DL RDW (test code = 1038) 13.5 % NEUTROPHILS (test code = 1008) 61.8 % LYMPHOCYTES (test code = 1010) 27.4 % MONOCYTES (test code = 1011) 7.7 % EOSINOPHILS (test code = 1012) 2.0 % BASOPHILS (test code = 1013) 0.9 % IMMATURE GRANULOCYTES (test 0.2 % code = 1036) NUCLEATED RBCS (test code = 0.0 /100WBC'S 1065) PLATELET COUNT (test code = 140 K/UL 1015) ABSOLUTE NEUTROPHILS (test code 2.79 K/UL = 1066) ABSOLUTE LYMPHOCYTES (test code 1.24 K/UL = 1067) ABSOLUTE MONOCYTES (test code = 0.35 K/UL 1068) ABSOLUTE EOSINOPHILS (test code 0.09 K/UL = 1040) ABSOLUTE BASOPHILS (test code = 0.04 K/UL 1069) ABS IMMATURE GRANULOCYTES (test 0.01 K/UL code = 1020) ABS NUCLEATED RBCS (test code = 0.02 K/UL 65807) CBC W/AUTO [id number] 00:00:00 Test Item Value Reference Range Interpretation Comments WBC (test code = 1001) 4.5 K/UL RBC (test code = 1002) 4.71 M/UL HEMOGLOBIN (test code = 1003) 14.6 G/DL HEMATOCRIT (test code = 1004) 44.6 % MCV (test code = 1005) 94.7 fL MCH (test code = 1006) 31.0 PG MCHC (test code = 1007) 32.7 G/DL RDW (test code = 1038) 13.5 % NEUTROPHILS (test code = 1008) 61.8 % LYMPHOCYTES (test code = 1010) 27.4 % MONOCYTES (test code = 1011) 7.7 % EOSINOPHILS (test code = 1012) 2.0 % BASOPHILS (test code = 1013) 0.9 % IMMATURE GRANULOCYTES (test 0.2 % code = 1036) NUCLEATED RBCS (test code = 0.0 /100WBC'S 1065) PLATELET COUNT (test code = 140 K/UL 1015) ABSOLUTE NEUTROPHILS (test code 2.79 K/UL = 1066) ABSOLUTE LYMPHOCYTES (test code 1.24 K/UL = 1067) ABSOLUTE MONOCYTES (test code = 0.35 K/UL 1068) ABSOLUTE EOSINOPHILS (test code 0.09 K/UL = 1040) ABSOLUTE BASOPHILS (test code = 0.04 K/UL 1069) ABS IMMATURE GRANULOCYTES (test 0.01 K/UL code = 1020) ABS NUCLEATED RBCS (test code = 0.02 K/UL 47216) CBC W/AUTO [id number] 00:00:00 Test Item Value Reference Range Interpretation Comments WBC (test code = 1001) 4.5 K/UL RBC (test code = 1002) 4.71 M/UL HEMOGLOBIN (test code = 1003) 14.6 G/DL HEMATOCRIT (test code = 1004) 44.6 % MCV (test code = 1005) 94.7 fL MCH (test code = 1006) 31.0 PG MCHC (test code = 1007) 32.7 G/DL RDW (test code = 1038) 13.5 % NEUTROPHILS (test code = 1008) 61.8 % LYMPHOCYTES (test code = 1010) 27.4 % MONOCYTES (test code = 1011) 7.7 % EOSINOPHILS (test code = 1012) 2.0 % BASOPHILS (test code = 1013) 0.9 % IMMATURE GRANULOCYTES (test 0.2 % code = 1036) NUCLEATED RBCS (test code = 0.0 /100WBC'S 1065) PLATELET COUNT (test code = 140 K/UL 1015) ABSOLUTE NEUTROPHILS (test code 2.79 K/UL = 1066) ABSOLUTE LYMPHOCYTES (test code 1.24 K/UL = 1067) ABSOLUTE MONOCYTES (test code = 0.35 K/UL 1068) ABSOLUTE EOSINOPHILS (test code 0.09 K/UL = 1040) ABSOLUTE BASOPHILS (test code = 0.04 K/UL 1069) ABS IMMATURE GRANULOCYTES (test 0.01 K/UL code = 1020) ABS NUCLEATED RBCS (test code = 0.02 K/UL 95170) CBC W/AUTO [id number] 00:00:00 Test Item Value Reference Range Interpretation Comments WBC (test code = 1001) 4.5 K/UL RBC (test code = 1002) 4.71 M/UL HEMOGLOBIN (test code = 1003) 14.6 G/DL HEMATOCRIT (test code = 1004) 44.6 % MCV (test code = 1005) 94.7 fL MCH (test code = 1006) 31.0 PG MCHC (test code = 1007) 32.7 G/DL RDW (test code = 1038) 13.5 % NEUTROPHILS (test code = 1008) 61.8 % LYMPHOCYTES (test code = 1010) 27.4 % MONOCYTES (test code = 1011) 7.7 % EOSINOPHILS (test code = 1012) 2.0 % BASOPHILS (test code = 1013) 0.9 % IMMATURE GRANULOCYTES (test 0.2 % code = 1036) NUCLEATED RBCS (test code = 0.0 /100WBC'S 1065) PLATELET COUNT (test code = 140 K/UL 1015) ABSOLUTE NEUTROPHILS (test code 2.79 K/UL = 1066) ABSOLUTE LYMPHOCYTES (test code 1.24 K/UL = 1067) ABSOLUTE MONOCYTES (test code = 0.35 K/UL 1068) ABSOLUTE EOSINOPHILS (test code 0.09 K/UL = 1040) ABSOLUTE BASOPHILS (test code = 0.04 K/UL 1069) ABS IMMATURE GRANULOCYTES (test 0.01 K/UL code = 1020) ABS NUCLEATED RBCS (test code = 0.02 K/UL 35884) CBC W/AUTO [id number] 00:00:00 Test Item Value Reference Range Interpretation Comments WBC (test code = 1001) 4.5 K/UL RBC (test code = 1002) 4.71 M/UL HEMOGLOBIN (test code = 1003) 14.6 G/DL HEMATOCRIT (test code = 1004) 44.6 % MCV (test code = 1005) 94.7 fL MCH (test code = 1006) 31.0 PG MCHC (test code = 1007) 32.7 G/DL RDW (test code = 1038) 13.5 % NEUTROPHILS (test code = 1008) 61.8 % LYMPHOCYTES (test code = 1010) 27.4 % MONOCYTES (test code = 1011) 7.7 % EOSINOPHILS (test code = 1012) 2.0 % BASOPHILS (test code = 1013) 0.9 % IMMATURE GRANULOCYTES (test 0.2 % code = 1036) NUCLEATED RBCS (test code = 0.0 /100WBC'S 1065) PLATELET COUNT (test code = 140 K/UL 1015) ABSOLUTE NEUTROPHILS (test code 2.79 K/UL = 1066) ABSOLUTE LYMPHOCYTES (test code 1.24 K/UL = 1067) ABSOLUTE MONOCYTES (test code = 0.35 K/UL 1068) ABSOLUTE EOSINOPHILS (test code 0.09 K/UL = 1040) ABSOLUTE BASOPHILS (test code = 0.04 K/UL 1069) ABS IMMATURE GRANULOCYTES (test 0.01 K/UL code = 1020) ABS NUCLEATED RBCS (test code = 0.02 K/UL 38127) CT, BRAIN, WITHOUT IV [id number] 12:50:00Unlisted Reason for Exam - Click Yes and Enter Reason Below->YesUnlisted Reason for Exam->S06.5X9A [facility] : 1965 Sex: MFINAL REPORT EXAM: CT HEAD WITHOUT CONTRAST History: 54-year-old male presenting for follow-up [...] craniotomy, with interval decrease in of left subdur al hematoma and improved postoperative pneumocephalus. The residual [...] insults. Sellar/suprasellar region: No abnormalitiesCraniocervical junction: Patent fo ramen magnum. No Chiari one malformation. IMPRESSION: 1.Interval decrease in size of left residual subdural hematoma compared to head CT of 06/25/2020, complete resolution of previously seen right-sided midline shift. 2.Improved postoperative changes from left craniotomy and pneumocephalus. 3.Interval re solution of the small right subdural hematoma. Signed: Zach Melendez [facility] Verified Date/Time: 07/11/2020 12:50:55 CT Brain without IV [id number] 12:50:00Interface, External Ris In - 07/11/2020 12:53 PM CDTFINAL REPORT EXAM: CT HEAD WITHOUT CONTRAST History: 54-year-old male presenting for follow-up [...] utilized to reduce the radiation dose to aslow as reasonably achievable. Findings: Skull/extra-axial spaces: Postoperative findings from left parietal craniotomy, with interval decrease in of left subdural hematoma and improved postoperative pneumocephalus. The residual mixed density left frontoparietal subdural hematoma measures 0.6 cm in maximum transverse dimension, and mildly effaces the left lateral frontal sulci. There has been intervalresolution of right extra-axial hematoma and rightward midline shift. No blastic or lytic lesions. Brain sulci: Appropriate for age.Ventricles: Normal in size and configuration. No hydrocephalus. Parenchyma: No abnormal densities. No masses or acute/chronic cortical vascular insults. Sellar/suprasellar region: No abnormalitiesCraniocervical junction: Patent foramen magnum. No Chiari one malformation.IMPRESSION: 1.Interval decrease in size of left residual subdural hematoma compared to head CT of 06/25/2020, complete resolution of previously seen right-sided midline shift. 2.Improved postoperative changes from left craniotomy and pneumocephalus. 3.Interval resolution of the small right subdural hematoma. Signed: Zach Melendez MDReport Verified Date/Time: 07/11/2020 12:50:55 [facility] [id number] 07:20:00 Test Item Value Reference Range Interpretation Comments Sodium (test code = 135 meq/L 136-145 L 2951-2) Potassium (test code 4.0 meq/L 3.5-5.1 = 2823-3) Chloride (test code 102 meq/L 98-107 = 2075-0) CO2 (test code = 24 meq/L -2027-9) BUN (test code = 15 mg/dL 7-21 3094-0) Creatinine (test 0.94 mg/dL 0.57-1.25 code = 2160-0) Glucose (test code = 89 mg/dL 70-105 2345-7) Calcium (test code = 9.1 mg/dL 8.4-10.2 57816-5) EGFR (test code = 84 mL/min/1.73 sq ESTIMATE D GFR 13840-0) m IS NOT ACCURATE CREATININE CLEARANCE IN PREDICTING GLOMERULAR FILTRATION RATE. ESTIMATED GFR IS NOT APPLICABLE FOR DIALYSIS PATIENTS. SUGEY (test code = Qa Tech ID - SUGEY) [place] FOnce on admission and Daily AM afterwardsOnce on admission and Daily AM afterwards Lab Interpretation Abnormal (test code = 71631-3) [facility]00 Test Item Value Reference Range Interpretation Comments Magnesium (test code = 2.0 mg/dL 1.6-2.6 10619-6) SUGEY (test code = SUGEY) Qa Tech ID - BENNY FOnce on admission and Daily AM afterwardsOnce on admission and Daily AM afterwards Lab Interpretation Normal (test code = 18698-1) [facility] 07:20:00 Test Item Value Reference Range Interpretation Comments Phosphorus (test code = 3.7 mg/dL 2.3-4.7 2777-1) SUGEY (test code = SUGEY) Qa Tech ID - [place] FOnce on admission and Daily AM afterwardsOnce on admission and Daily AM afterwards Lab Interpretation Normal (test code = 97680-3) [facility] [id number] 07:20:00 Test Item Value Reference Range Interpretation [...] S NOT APPLICABLE FOR DIALYSIS PATIEN TS. Qa Tech ID - BENNY FOnce on admission and Daily AM afterwardsOnce on admission and Daily AM [id number] 07:20:00 Test Item Value Reference Range Interpretation Comments MAGNESIUM (BEAKER) (test code = 2.0 mg/dL 1.6-2.6 627) Qa Tech ID - BENNY FOnce on admission and Daily AM afterwardsOnce on admission and Daily AM [id number] 07:20:00 Test Item Value Reference Range Interpretation Comments PHOSPHORUS (BEAKER) (test code = 3.7 mg/dL 2.3-4.7 604) Qa Tech ID - BENNY Aguilarce on admission and Daily AM afterwardsOnce on admission and Daily AM afterwardsPOC-Glucose [id number] 06:37:00 Test Item Value Reference Range Interpretation Comments POC-Glucose Meter (test 88 mg/dL 70-110 : TE STED AT [facility] code = 1538) [address] [facility], 770 30: Qa Tech/Techni echo ID = [id number] for RAVINDRA MOIGABRIELLE TA Lab Interpretation (test Normal code = 97961-5) [facility] [id number] 06:37:00 Test Item Value Reference Range Interpretation Comments POC-GLUCOSE METER 88 mg/dL 70-110 : TESTED A T [facility] 6720 (BEAKER) (test code = [place] [facility], 1538) [address]: Qa Tech/Techni echo ID = [id number] for ZULLY ANDERSON CBC with platelet count + automated [id number] 06:01:00 Test Item Value Reference Range Interpretation Comments WBC (test code = 6690-2) 7.0 See_Comment [A utomated message] The system [email or web address] generated this result transmitted ref erence range: 3.5 - 10 .5 K/L. The refe rence range was not u sed to interpret this result as normal/abnor mal. RBC (test code = 789-8) 4.27 See_Comment L [Au tomated message] The system [email or web address] generated this result transmitted ref erence range: 4.63 - 6 .08 M/L. The refe rence range was not u sed to interpret this result as normal/abnor mal. MCHC (test code = 786-4) 35.1 See_Comment L [A utomated message] The system [email or web address] generated this result transmitted ref erence range: [...] See_Comment [Aut omated message] 777-3) The system [email or web address] generated this result transmitted ref erence range: 150 - 45 0 K/CU MM. The referen ce range was not u sed to interpret this result as normal/abnor mal. MPV (test code = 11.4 fL 9.4-12.4 48323-4) nRBC (test code = 413) 0 See_Comment [Aut omated message] The system [email or web address] generated this result transmitted ref erence range: [...] See_Comment [Aut omated message] 670) The system [email or web address] generated this result transmitted ref erence range: 1.78 - 5 .38 K/L. The refe rence range was not u sed to interpret this result as normal/abnor mal. # Lymphs (test code = 2.40 See_Comment [Auto mated message] 414) The system [email or web address] generated this result transmitted ref erence range: 1.32 - 3 .57 K/L. The refe rence range was not u sed to interpret this result as normal/abnor mal. # Monos (test code = 0.53 See_Comment [Autom ated message] 415) The system [email or web address] generated this result transmitted ref erence range: 0.30 - 0 .82 K/L. The refe rence range was not u sed to interpret this result as normal/abnor mal. # Eos (test code = 416) 0.19 See_Comment [Au tomated message] The system [email or web address] generated this result transmitted ref erence range: 0.04 - 0 .54 K/L. The refe rence range was not u sed to interpret this result as normal/abnor mal. # Baso (test code = 417) 0.05 See_Comment [A utomated message] The system [email or web address] generated this result transmitted ref erence range: 0.01 - 0 .08 K/L. The refe rence range was not u sed to interpret this result as normal/abnor mal. Immature 0 % 0-1 Granulocytes-Relative (test code = 2801) Lab Interpretation (test Abnormal code = 33919-7) [facility] W/PLT COUNT & AUTO [id number] 06:01:00 Test Item Value Reference Range Interpretation [...] PERCENT (BEAKER) (test code = 2801) POCT-GLUCOSE [id number] 00:19:00 Test Item Value Reference Range Interpretation Comments POC-GLUCOSE METER 114 mg/dL 70-110 H : TESTED A T [facility] 6720 (BEAKER) (test code = [place], 1538) [address]: Qa Tech/Techni echo ID = [id number] for ZULLY BURDICK EEG AWAKE AND [id number] 17:48:00Reason for exam:->R/o seizures [facility] : 1965 Sex: MNEUROPHYSIOLOGY EEG REPORT DATES OF TEST: 06/25/20 DATE OF REPORT: 06/25/20 Name: Steven Sepulveda ACC #: [id number] EEG Number: [id number] Start time: 2:59 PM Stop time: 3:19 PM CPT Code: 68679 ICD-10: R56.9 HISTORY: 54-year-old man presented with [...] PHOTIC STIMULATION: Photic stimulation was performed from 1- 33 Hz. Photic stimulation didn't elicit abnormal discharges. [...] of epilepsy remains, consider additional EEG recordings. Mostafa Hotait, MD Neurophysiology/ Epilepsy Fellow I have reviewed this electroencephalogram, discussed the findings with the fellow, addended the fellow's report and agree with the overall assessment. Steven Giang MD, MS Clinical Neurophysiology/Epilepsy Attending EEG AWAKE AND [id number] 17:48:00 Interface, External Ris In - 06/25/2020 5:48 PM CDTNEUROPHYSIOLOGY EEG REPORT DATES OF TEST: 06/25/20 DATE OF REPORT: 06/25/20 Name: Steven Sepulveda ACC #: [id number] EEG Number: [id number] Starttime: 2:59 PM Stop time: 3:19 PM CPT Code: 99123 ICD-10: R56.9 HISTORY: 54-year-old man presented with [...] in bilateral frontal regions. During drowsiness, there isan attenuation of a posterior dominant rhythm and an increase in fronto-central theta. Stage 2 sleep was reached and characterized by symmetric sleep spindles. HV: Hyperventilation was not performed. PHOTIC STIMULATION: Photic stimulation was performed from 1- 33 Hz. Photic stimulation didn't elicit abnormal discharges. [...] Steven Giang MD, MS Clinical Neurophysiology/Epilepsy Attending Electronically signed by: Kristyn DICKEY 06/25/2020 05:48 [facility] 2020-06-25 12:41:00 Test Item Value Reference Range Interpretation Comments POC-GLUCOSE METER 140 mg/dL 70-110 H : Notified RN/MD: (BERENICE) (test code = TESTED AT [facility] 6720 1538) [facility], [address]: Qa Tech/Techni echo ID = [id number] for JUAN LUIS MARTINEZ CT, CAROTID, [id number] 07:59:00Unlisted Reason for Exam - Click Yes and Enter Reason Below->No [facility] : 1965 Sex: MFINAL REPORT CLINICAL HISTORY: Unlisted Reason for ExamTIA w/u TECHNIQUE: Contiguous contrast-enhanced axial images through the neck followed by axial images through the head with coronaland sagittal reformations to assess the arterial circulation. [...] pellucidum is unchanged. The CT angiogram images ofthe head reveal no evidence of intracranial aneurysm, [...] are clear. IMPRESSION: No evidence for a [place] large vessel occlusion. No evidence of hemodynamically significant stenosis in the cervical carotid or vertebral arteries by NASCET criteria. Signed: Agus Merino MDReport Verified Date/Time: 06/25/2020 07:59:19 Reading Location: [address] Neuro Reading Room CT, CTANGIO [id number] 07:59:00Unlisted Reason for Exam - Click Yes and Enter Reason Below->YesUnlisted Reason for Exam->TIA w/u [facility] : 1965 Sex: MFINAL REPORT CLINICAL HISTORY: Unlisted Reason for ExamTIA w/u TECHNIQUE: Contiguous contrast-enhanced axial images through the neck followed by axial images through the head with coronaland sagittal reformations to assess the arterial circulation. [...] pellucidum is unchanged. The CT angiogram images ofthe head reveal no evidence of intracranial aneurysm, [...] are clear. IMPRESSION: No evidence for a [place] large vessel occlusion. No evidence of hemodynamically significant stenosis in the cervical carotid or vertebral arteries by NASCET criteria. Signed: Agus Merino MDReport Verified Date/Time: 06/25/2020 07:59:19 Reading Location: [address] Neuro Reading Room [facility] [id number] 07:59:00Interface, External Ris In - 06/25/2020 8:01 [...] seen. Left greater than right cerebral convexity subduralcollections are grossly unchanged allowing for differences in [...] are clear. IMPRESSION: No evidence for a [place] large vessel occlusion. No evidence of hemodynamically significant stenosisin the cervical carotid or vertebral arteries by NASCET criteria. Signed: Agus Merino MDReport Verified Date/Time: 06/25/2020 07:59:19 Reading Location: [facility] [address] [id number] Neuro Reading Room Electronicallysigned by: AGUS MERINO M.D. on 06/25/2020 07:59 [facility] [id number] 07:59:00Interface, External Ris In - 06/25/2020 8:01 [...] seen. Left greater than right cerebral convexity subduralcollections are grossly unchanged allowing for differences in [...] are clear. IMPRESSION: No evidence for a [place] large vessel occlusion. No evidence of hemodynamically significant stenosisin the cervical carotid or vertebral arteries by NASCET criteria. Signed: Agus Merino MDReport Verified Date/Time: 06/25/2020 07:59:19 Reading Location: [address] Neuro Reading Room Electronicallysigned by: AGUS MERINO M.D. on 06/25/2020 07:59 [facility] 05:38:00 Test Item Value Reference Range Interpretation Comments MAGNESIUM (BEAKER) 2.2 mg/dL 1.6-2.6 Specimen slightly (test code = 627) hemolyzed Qa Tech ID - BSOnce on admission and Daily AM afterwardsOnce on admission and Daily AM [id number] 05:38:00 Test Item Value Reference Range Interpretation Comments PHOSPHORUS (BEAKER) 3.9 mg/dL 2.3-4.7 Specimen slightly (test code = 604) hemolyzed Qa Tech ID - BSOnce on admission and Daily AM afterwardsOnce on admission and Daily AM afterwardsBASIC METABOLIC [id number] 05:38:00 Test Item Value Reference Range Interpretation [...] S NOT APPLICABLE FOR DIALYSIS PATIEN TS. Qa Tech ID - BSOnce on admission and Daily AM afterwardsOnce on admission and Daily AM afterwardsCBC W/PLT COUNT & AUTO [id number] 05:17:00 Test Item Value Reference Range Interpretation [...] (test code = 2801) MR, BRAIN, WITHOUT [id number] 01:47:00Unlisted Reason for Exam - Click Yes and Enter Reason Below->No [facility] : 1965 Sex: MFINAL REPORT MRI Brain without contrast Clinical History: TIA, initial exam Technique:MRI of the brain utilizing axial T2, FLAIR, [...] Mild effacement of the left lateral ventricle. Multiplebilateral T2 and FLAIR hyperintense white matter foci likely represent chronic white matter microvascular disease.There is no evidence of acute infarct . The craniocervical junction is preserved. The ma baylee intracranial flow-voids appear patent. Paranasal sinuses are [...] size of the mixed density subdural hematoma alongthe right cerebral convexity. Findings above suggestive of small volume subarachnoid hemorrhage in the right cerebral hemisphere. Signed: Reena Cardoso Verified Date/Time: 06/25/2020 01:47:24 MR brain without IV [id number] 01:47:00Interface, External Ris In - 06/25/2020 1:50 [...] within the collection likely related to recent instrumentation.There is mild mass effect on adjacent structures. Thin mixed density subdural hematoma along the right superior cerebral convexity measuring up to 7 mm possibly slightly increased in size in the interval however differences in technique limits evaluation. There is hyperintense FLAIR signal within the subarachnoid spaces of the right superior surgical convexity suggestive of small volume subarachnoid h emorrhage. There is 5 mm of rightward midline shift when measured at the septum pellucidum, unchanged. Mild effacement of the left lateral ventricle. Multiple bilateral T2 and FLAIR hyperintense white matter foci likely represent chronic white matter microvascular disease.There is no evidence of acuteinfarct . The craniocervical junction is preserved. The major intracranial flow-voids appear patent.Paranasal sinuses are clear. Middle ears and mastoid air cells are clear. Intraorbital contents are unremarkable. Postsurgical changes in the left scalp. IMPRESSION: Status post left sided craniotomy for drainage of a left cerebral convexity subdural hematoma. Grossly unchanged size of the left cerebral convexity subdural with persistent mass effect on adjacent structures including mild effacement ofthe left lateral ventricle. Unchanged 5 mm of rightward midline shift.. Possible slight interval increase in size of the mixed density subdural hematoma along the right cerebral convexity. Findings above suggestive of small volume subarachnoid hemorrhage in the right cerebral hemisphere. Signed: Reena Cardoso MDReport Verified Date/Time: 06/25/2020 01:47:24 [facility] CenterHep[facility] function [id number] 18:54:00 Test Item Value Reference Range Interpretation Comments Protein, Total (test 7.3 See_Comment [Autom ated code = 2885-2) message] The system which generated this result transmit franki reference range : 6.0 - 8.3 gm/dL . The reference range was not u sed to interpret th is result as normal/abnormal . Albumin (test code = 4.3 g/dL 3.5-5 72769-2) Total Bilirubin (test 0.5 mg/dL 0.2-1.2 code = 1975-2) Bilirubin, Direct 0.2 mg/dL 0.1-0.5 (test code = 1968-7) Alkaline Phosphatase 60 U/L 40-150 (test code = 6768-6) AST (test code = 21 U/L 5-34 1920-8) ALT (test code = 31 U/L 6-55 1742-6) SUGEY (test code = SUGEY) Qa Tech ID - BS Lab Interpretation Normal (test code = 91874-6) [facility]AT[facility] [id number] 18:54:00 Test Item Value Reference Range Interpretation [...] (test code = 31 U/L 6-55 347) Qa Tech ID - BSBASIC METABOLIC [id number] 18:53:00 Test Item Value Reference Range Interpretation [...] S NOT APPLICABLE FOR DIALYSIS PATIEN TS. Qa Tech ID - [id number] 18:53:00 Test Item Value Reference Range Interpretation Comments MAGNESIUM (BEAKER) (test code = 2.2 mg/dL 1.6-2.6 627) Qa Tech ID - [id number] 18:53:00 Test Item Value Reference Range Interpretation Comments PHOSPHORUS (BEAKER) (test code = 3.4 mg/dL 2.3-4.7 604) Qa Tech ID - [id number] 18:48:00 Test Item Value Reference Range Interpretation Comments Fibrinogen (test code = 3255-7) 545 mg/dl 225-434 H Lab Interpretation (test code = Abnormal 35820-0) [facility] [id number] 18:48:00 Test Item Value Reference Range Interpretation Comments FIBRINOGEN LEVEL (BEAKER) (test 545 mg/dl 225-434 H code = 658) [id number] 18:39:00 Test Item Value Reference Range Interpretation Comments PTT (test code = 79789-0) 35.0 See_Comment [ Automated message] The system [email or web address] generated this result transmitted ref erence range: 22.5 - 3 6.0 seconds. The re ference range was not u sed to interpret this result as normal/abnor mal. Lab Interpretation (test Normal code = 89930-9) [facility]APTT2021-04-[facility] 18:39:00 Test Item Value Reference Range Interpretation Comments PARTIAL THROMBOPLASTIN TIME 35.0 seconds 22.5-36.0 (BEAKER) (test code = 760) Prothrombin time/[id number] 18:38:00 Test Item Value Reference Interpretation Comments [...] valves. Lab Interpretation Normal (test code = 28735-0) [facility] HospitalPROTHROMBIN TIME/[id number] 18:38:00 Test Item Value Reference Range Interpretation Comments PROTIME (BEAKER) 13.9 seconds 11.9-14.2 (test code = 759) INR (BEAKER) (test 1.10 See_Comment [Automat ed message] code = 370) The system [email or web address] generated this result transmitted ref erence range: <=5.90. The reference range was not used to int erpret this result as normal/abnormal . Effective 08/16/2018: PT Reference Range ChangeNew: 11.9-14.2 Previous: 11.7- 14.7RECOMMENDED COUMADIN/WARFARIN INR THERAPY RANGESSTANDARD DOSE: 2.0-3.0 Includes: PROPHYLAXIS for venous thrombosis, systemic embolization; TREATMENT for venous thrombosis and/or pulmonary embolus.HIGH RISK: Target INR is 2.5-3.5 for patients wiht mechanical heart valves.CBC W/PLT COUNT & AUTO [id number] 18:26:00 Test Item Value Reference Range Interpretation [...] (test code = 2801) CT, BRAIN, WITHOUT [id number] 10:26:00Unlisted Reason for Exam - Click Yes and Enter Reason Below->YesUnlisted Reason for Exam->SDH [facility] : 1965 Sex: MFINAL REPORT [...] unchanged, measuring up to 6 mm. Midline shiftis not significantly changed in the interim given [...] is recommended for further characterization. Signed: Edna Dengeport Verified Date/Time: 06/21/2020 10:26:18Reading Location: [address] Neuro Reading Room BASIC METABOLIC [id number] 06:08:00 Test Item Value Reference Range Interpretation [...] S NOT APPLICABLE FOR DIALYSIS PATIEN TS. Qa Tech ID - [id number] 06:08:00 Test Item Value Reference Range Interpretation Comments MAGNESIUM (BEAKER) (test code = 2.0 mg/dL 1.6-2.6 627) Qa Tech ID - [id number] 06:08:00 Test Item Value Reference Range Interpretation Comments PHOSPHORUS (BEAKER) (test code = 3.8 mg/dL 2.3-4.7 604) Qa Tech ID - DBCBC W/PLT COUNT & AUTO [id number] 05:37:00 Test Item Value Reference Range Interpretation [...] (BEAKER) (test code = 2801) BASIC METABOLIC [id number] 04:37:00 Test Item Value Reference Range Interpretation [...] S NOT APPLICABLE FOR DIALYSIS PATIEN TS. Qa Tech ID - [id number] 04:37:00 Test Item Value Reference Range Interpretation Comments MAGNESIUM (BEAKER) (test code = 2.1 mg/dL 1.6-2.6 627) Qa Tech ID - [id number] 04:37:00 Test Item Value Reference Range Interpretation Comments PHOSPHORUS (BEAKER) (test code = 3.7 mg/dL 2.3-4.7 604) Qa Tech ID - EDASICBC W/PLT COUNT & AUTO [id number] 04:25:00 Test Item Value Reference Range Interpretation [...] = 2801) CBC W/PLT COUNT & AUTO [id number] 04:36:00 Test Item Value Reference Range Interpretation [...] 0-1 PERCENT (BEAKER) (test code = 2801) [id number] 03:54:00 Test Item Value Reference Range Interpretation Comments MAGNESIUM (BEAKER) 2.0 mg/dL 1.6-2.6 Specimen slightly (test code = 627) hemolyzed Qa Tech ID - CARO [id number] 03:54:00 Test Item Value Reference Range Interpretation Comments PHOSPHORUS (BEAKER) 3.4 mg/dL 2.3-4.7 Specimen slightly (test code = 604) hemolyzed Qa Tech ID - CARO MBASIC METABOLIC [id number] 03:54:00 Test Item Value Reference Range Interpretation [...] S NOT APPLICABLE FOR DIALYSIS PATIEN TS. Qa Tech ID - CARO MCT, BRAIN, WITHOUT [id number] 07:26:00Unlisted Reason for Exam - Click Yes and Enter Reason Below->No [facility] : 1965 Sex: MFINAL REPORT CT Head without contrast CLINICAL HISTORY: Cerebral hemorrhage suspected TECHNIQUE: Contiguous axial CT images through the head without contrast. This exam was performed accordingto the departmental dose optimization program which includes [...] subsided. Medial left uncal deviation and effacement ofthe ambient cisterns is also decreased. There is a new right cerebral vertex subdural hemorrhage measuring 4 mm in thickness, without significant mass effect. There is no CT evidence for acute infarction. IMPRESSION: Since 06/17/2020, status post decompression of the left-sided subdural hematoma with substantially decreased mass effect. Interval development of a thin right cerebral vertex subdural hemorrhage measuring 4 mm in thickness, for which attention on follow-up is recommended. Signed: Agus Merino MDReport Verified Date/Time: 06/18/2020 07:26:39 Reading Location: [address] Neuro Reading Room BASIC METABOLIC [id number] 04:40:00 Test Item Value Reference Range Interpretation [...] S NOT APPLICABLE FOR DIALYSIS PATIEN TS. Qa Tech ID - CARO [id number] 04:40:00 Test Item Value Reference Range Interpretation Comments MAGNESIUM (BEAKER) (test code = 1.9 mg/dL 1.6-2.6 627) Qa Tech ID - CARO [id number] 04:40:00 Test Item Value Reference Range Interpretation Comments PHOSPHORUS (BEAKER) (test code = 3.5 mg/dL 2.3-4.7 604) Qa Tech ID - CARO MCBC W/PLT COUNT & AUTO [id number] 04:27:00 Test Item Value Reference Range Interpretation [...] (BEAKER) (test code = 2801) ECG 12 [id number] 13:59:49Interface, External Ris In - 06/17/2020 1:59 PM CDTVentricular Rate 50 BPMAtrial Rate 50 BPMP-R Interval 194 msQRS Duration 94 msQ-T Interval 430 msQTC Calculation(Bazett) 392 msP [place] 31 degreesR [place]-7 degreesT [place] 6 degreesSinus bradycardiaOtherwise normal ECGNo previous ECGs availableConfirmed by MD Garay Roberto ([id number]) on 06/17/2020 1:59:44 PM [facility]/Free T4 If [id number] 08:07:00 Test Item Value Reference Range Interpretation Comments TSH (test code = 2.822 See_Comment [Automated 55736-1) message] The system which generated this result transmit franki reference range : 0.350 - 4.940 uIU/mL. The reference range was not used to interpret this result as normal/abnormal . SUGEY (test code = SUGEY) Qa Tech ID - JUAN L Lab Interpretation Normal (test code = 34650-7) [facility] HospitalTSH/FREE T4 IF [id number] 08:07:00 Test Item Value Reference Range Interpretation Comments THYROID STIMULATING HORMONE 2.822 uIU/mL 0.350-4.940 (BEAKER) (test code = 772) Qa Tech ID - JUAN LCT, BRAIN, WITHOUT [id number] 08:05:00Followup from [place]. Previously read as 2cm diameter with 12-13mm MLSUnlisted Reason for Exam - Click Yes and Enter Reason Below->No [facility] : 1965 Sex: MFINAL REPORT [...] a left cerebral convexity subdural hematoma measuring 2.1 cm in thickness with a layering hematocrit level. There is mass effect compressing the left cerebral hemisphere and narrowing the left lateral ventricle. There is rightward midline shift of the septum pellucidum by 1.0cm. Asymmetric dilatation of the right temporal horn [...] MDReport Verified Date/Time: 06/17/2020 08:05:59 Reading Location: [facility] [address] Neuro Reading Room [facility] [id number] 04:24:00 Test Item Value Reference Range Interpretation Comments Troponin I (test code = <0.01 0-0.03 83440-2) SUGEY (test code = SUGEY) Troponin I [...] L Lab Interpretation (test Normal code = 06806-7) [facility] [id number] 04:24:00 Test Item Value Reference Range Interpretation [...] failure, acidosis, acute neurological disease, and persistent tachyarrhythmia.Qa Tech ID - PIAYA LLipid panel 2020-06-17 04:22:00 Test Item Value Reference Range Interpretation Comments Triglycerides (test 184 mg/dL code = 2571-8) Cholesterol (test code 193 mg/dL = 2093-3) HDL (test code = 34 mg/dL 2085-9) LDL Calculated (test 122 mg/dL code = 43979-1) SUGEY (test code = SUGEY) Triglyceride Reference Range: Low Risk <150 Borderline 150-199 High Risk 200-499 Very High Risk >=500 Cholesterol Reference Range: Low Risk <200 Borderline 200-239 High Risk >240 HDL Cholesterol Reference Range: Low Risk >=60 High Risk <40 LDL Cholesterol Reference Range: Optimal <100 Near Optimal 100-129 Borderline 130-159 High 160-189 Very High >=190 Qa Tech MATHEUS MARTINEZ Maurice DONALD [facility] HospitalBASI METABOLIC [id number] 04:22:00 Test Item Value Reference Range Interpretation [...] S NOT APPLICABLE FOR DIALYSIS PATIEN TS. Qa Tech ID - JUAN [id number] 04:22:00 Test Item Value Reference Range Interpretation Comments MAGNESIUM (BEAKER) (test code = 2.1 mg/dL 1.6-2.6 627) Qa Tech ID - JUAN [id number] 04:22:00 Test Item Value Reference Range Interpretation Comments PHOSPHORUS (BEAKER) (test code = 3.7 mg/dL 2.3-4.7 604) Qa Tech ID Sarahi MARTINEZ LLIPID [id number] 04:22:00 Test Item Value Reference Range Interpretation Comments TRIGLYCERIDES (BEAKER) (test code = 184 mg/dL 540) CHOLESTEROL (BEAKER) (test code = 193 mg/dL 631) HDL CHOLESTEROL (BEAKER) (test code 34 mg/dL = 976) LDL CHOLESTEROL CALCULATED (BEAKER) 122 mg/dL (test code = 633) Triglyceride Reference Range: Low Risk <150 Borderline 150-199 High Risk 200- 499 Very High Risk >=500Cholesterol Reference Range: Low Risk <200 Borderline 200-239 High Risk >240HDL Cholesterol Reference Range: Low Risk >=60 High Risk <40LDL Cholesterol Reference Range: Optimal <100 Near Optimal 100-129 Borderline 130-159 High 160-189 Very High >=190 Qa Tech ID - PIAYA LCBC W/PLT COUNT & AUTO [id number] 04:02:00 Test Item Value Reference Range Interpretation [...] Not Detected, (test code = Negative, See 90926-7) external report for linked test SARS-COV-2 [facility] PERFORMING LAB (test code = 87493-9) SUGYE (test code = Negative results do not [...] of the Act. Fact Sheet for Healthcare Providers:https://www.[employer]/Documents/Xper t%20Xpress%20SARS%20CoV- 2/Fact%20Sheets/302-3802 %64KPHI-HYB-4%20HEALTHCA RE%20PROVIDERS%20FACT%20 SHEET.pdf Fact Sheet for Healthcare Patients:https://www.[employer]/Documents/Xpert %20Xpress%20SARS%20CoV-2 /Fact%20Sheets/302-3801% 86DUEV-ZVO-1%20PATIENT%2 0FACT%20SHEET.pdf Performing Laboratory:[facility] [place] [address] [facility] HospitalARS-COV2/RT-PCR ([facility])2020-06-16 23:03:00 Test Item Value Reference Range Interpretation Comments SARS-COV2/RT-PCR (test code Negative Not Detected, Negative, = 4384833) See external report for linked test SARS-COV-2 PERFORMING LAB [facility] (test code = 1556803) Negative results do not preclude SARS-CoV-2 infection [...] of the Act.Fact Sheet for Healthcare Pro viders:https://www.[employer]/Documents/Xpert%20Xpress%20SARS%20CoV-2/Fact%20Sh eets/302-3802%82XNQS-BOY-2%20HEALTHCARE%20PROVIDERS%20FACT%20SHEET.pdfFact Sheet for Healthcare Patients:https://www.[employer]/Documents/Xpert%20Xpress%20SARS%20CoV-2/Fact%20Sheets/302-3801%20SARS-COV -2%20PATIENT%20FACT%20SHEET.pdfPerforming Laboratory:[facility], [place] [address]XHMUQ, [id number] 22:13:00 Test Item Value Reference Range Interpretation Comments ABO Grouping (test code = 2588) O Rh Factor (test code = 2589) POS [facility] HospitalType and screen, [id number] 21:59:00 Test Item Value Reference Range Interpretation Comments ABO/RH AUTOMATED (BEAKER) (test O POSITIVE code = 2260) Ab Scrn (test code = 890-4) NEGATIVE [facility] HospitalAPTT2021-03-29 21:56:00 Test Item Value Reference Range Interpretation Comments PARTIAL THROMBOPLASTIN TIME 32.8 seconds 22.5-36.0 (BEAKER) (test code = 760) [id number] 21:56:00 Test Item Value Reference Range Interpretation Comments FIBRINOGEN LEVEL (BEAKER) (test 289 mg/dl 225-434 code = 658) PROTHROMBIN TIME/[id number] 21:55:00 Test Item Value Reference Range Interpretation Comments PROTIME (BEAKER) 13.7 seconds 11.9-14.2 (test code = 759) INR (BEAKER) (test 1.10 See_Comment [Automat ed message] code = 370) The system [employer] generated this result transmitted ref erence range: <=5.90. The reference range was not used to int erpret this result as normal/abnormal . Effective 08/16/2018: PT Reference Range ChangeNew: 11.9-14.2 Previous: 11.7- 14.7RECOMMENDED COUMADIN/WARFARIN INR THERAPY RANGESSTANDARD DOSE: 2.0-3.0 Includes: PROPHYLAXIS for venous thrombosis, systemic embolization; TREATMENT for venous thrombosis and/or pulmonary embolus.HIGH RISK: Target INR is 2.5-3.5 for patients wiht mechanical heart valves.BASIC METABOLIC [id number] 21:45:00 Test Item Value Reference Range Interpretation [...] S NOT APPLICABLE FOR DIALYSIS PATIEN TS. Qa Tech ID - [id number] 21:45:00 Test Item Value Reference Range Interpretation Comments MAGNESIUM (BEAKER) (test code = 2.0 mg/dL 1.6-2.6 627) Qa Tech ID - [id number] 21:45:00 Test Item Value Reference Range Interpretation Comments PHOSPHORUS (BEAKER) (test code = 3.8 mg/dL 2.3-4.7 604) Qa Tech ID - DBCBC W/PLT COUNT & AUTO [id number] 21:29:00 Test Item Value Reference Range Interpretation [...] = 2801) RAD, CHEST, 1 VIEW, NON [id number] 21:19:00Reason for exam:->SDHShould this be performed at the bedside?->Yes [facility] : 1965 Sex: MFINAL REPORT [...] right subacromial spur. Impression: No focal pulmonary consolidation.Signed: Maritza Oviedo Verified Date/Time: 06/16/2020 21:19:03 XR chest 1 view portable / [id number] 21:19:00Interface, External Ris In - 06/16/2020 9:21 PM CDTFINAL REPORT Chest one view.Clinical history: SDH Comparison: None. Technique: A single [...] No focal pulmonary consolidation. Signed: Maritza Oviedo Verified Date/Time: 06/16/2020 21:19:03 [facility]
--- NOTE | 2022-01-25 06:13 | ER ---
Nurse's Notes [facility] Name: Wyatt Sepulveda Age: 56 yrs Sex: Male : 1965 Arrival Date: 01/25/2022 Time: 02:59 Bed 20 Private MD: Diagnosis: SARS-associated coronavirus as the cause of diseases classified elsewhere;Viral infection, unspecified Presentation: 01/25 03:19 Chief complaint: Patient states: I have been sick for 3 or 4 days. Recently my frandy took a covid test and it was positive. I woke up this morning with diarrhea and vomiting so i came in. Coronavirus screen: Vaccine status: Patient reports receiving the 2nd dose of the covid vaccine. Ebola Screen: No symptoms or risks identified at this time. Initial Sepsis Screen: Does the patient meet any 2 criteria? No. Patient's initial sepsis screen is negative. Does the patient have a suspected source of infection? No. Patient's initial sepsis screen is negative. Risk Assessment: Do you want to hurt yourself or someone else? Patient reports no desire to harm self or others. Onset of symptoms was January 25, 2022. 03:19 Method Of Arrival: Ambulatory kd3 03:19 Acuity: CARRIE 4 kd3 Triage Assessment: 03:20 General: Appears ill, Behavior is calm, cooperative. Pain: Complains of pain in kd3 headache. Neuro: Level of Consciousness is awake, alert, obeys commands, Oriented to person, place, time, situation. Cardiovascular: Patient's skin is warm and dry. Respiratory: Airway is patent Trachea midline Respiratory effort is even, unlabored, Respiratory pattern is regular, symmetrical. Historical: - Home Meds: 03:20 lisinopril 20 mg Oral tab 1 tab once daily [Active]; kd3 - PMHx: 03:20 Brain bleed-craniotomy; Hypertension; kd3 - PSHx: 03:20 Craniotomy; kd3 - Immunization history:: Adult Immunizations up to date. - Social history:: Smoking status: unknown. Screenin:21 Abuse screen: Denies threats or abuse. Denies injuries from another. Nutritional kd3 screening: No deficits noted. Tuberculosis screening: No symptoms or risk factors identified. Fall Risk None identified. Assessment: 03:34 General: Appears ill, Behavior is calm, cooperative. Neuro: Level of Consciousness is kd3 awake, alert, obeys commands, Oriented to person, place, time, situation. Cardiovascular: Patient's skin is warm and dry. Respiratory: Airway is patent Trachea midline Respiratory effort is even, unlabored, Respiratory pattern is regular, symmetrical. 06:31 Reassessment: No changes from previously documented assessment. Patient and/or family kd3 updated on plan of care and expected duration. Pain level reassessed. Patient is alert, oriented x 3, equal unlabored respirations, skin warm/dry/pink. Vital Signs: 03:10 BP 142 / 91; Pulse 53; Resp 18; Temp 98.4(O); Pulse Ox 95% on R/A; Weight 99.79 kg; mm9 Height 5 ft. 8 in. (172.72 cm); 03:34 BP 102 / 87; Pulse 54; Resp 16; Pulse Ox 95% on R/A; kd3 06:31 BP 125 / 84; Pulse 62; Resp 17; Pulse Ox 98% on R/A; kd3 03:10 Body Mass Index 33.45 (99.79 kg, 172.72 cm) mm9 ED Course: 02:59 Patient arrived in ED. ja2 03:01 Sawyer Cam MD is Attending Physician. kdr 03:11 Allergy band placed. Placed in gown. Bed in low position. Call light in reach. Side mm9 rails up X 1. Pulse ox on. NIBP on. 03:12 COVID swab sent to lab. Flu and/or RSV swab sent to lab. mm9 03:12 Flu Sent. mm9 03:12 COVID-19 SARS RT PCR (Document "Date of Onset" if Symptomatic) Sent. mm9 03:19 Teena Chang, VARGAS is Primary Nurse. kd3 03:20 Triage completed. kd3 03:20 Arm band placed on right wrist. kd3 03:34 No provider procedures requiring assistance completed. kd3 06:39 Patient did not have IV access during this emergency room visit. kd3 Administered Medications: No medications were administered Medication: 03:21 VIS not applicable for this client. kd3 Outcome: 06:12 Discharge ordered by . kdr 06:38 Discharged to home ambulatory. kd3 06:38 Condition: stable 06:38 Discharge instructions given to patient, family, Instructed on discharge instructions, follow up and referral plans. Demonstrated understanding of instructions, follow-up care. 06:39 Patient left the ED. kd3 Signatures: Sawyer Cam MD MD [facility] Erum Reyes Kyli, RN RN [email or web address] Aline Nicolas mm9
--- NOTE | 2022-01-25 06:13 | EDPHYS ---
Physician Documentation [facility] Name: Wyatt Sepulveda Age: 56 yrs Sex: Male : 1965 Arrival Date: 01/25/2022 Time: 02:59 Bed 20 Private MD: ED Physician Sawyer Cam HPI: 01/25 07:45 This 56 yrs old Male presents to ER via Ambulatory with complaints of Covid kdr Symptoms. 07:45 Patient awoke this morning with COVID symptoms. He had been exposed to his who was kdr recently diagnosed with COVID. He also had some nausea vomiting and diarrhea. He states that he came in to make sure that he was okay. Vital signs were stable he was nontoxic-appearing he has not had any diarrhea since arrival or during his stay. Nor has he had any vomiting. Onset: The symptoms/episode began/occurred this morning. Severity of symptoms: At their worst the symptoms were mild in the emergency department the symptoms are unchanged. The patient has not experienced similar symptoms in the past. The patient has not recently seen a physician. Historical: - Home Meds: 03:20 lisinopril 20 mg Oral tab 1 tab once daily [Active]; kd3 - PMHx: 03:20 Brain bleed-craniotomy; Hypertension; kd3 - PSHx: 03:20 Craniotomy; kd3 - Immunization history:: Adult Immunizations up to date. - Social history:: Smoking status: unknown. ROS: 07:45 Constitutional: Negative for chills, and weight loss, he has had subjective fever Eyes: kdr Negative for injury, pain, redness, and discharge, ENT: Negative for injury, pain, and discharge, Neck: Negative for injury, pain, and swelling, Cardiovascular: Negative for chest pain, palpitations, and edema, Respiratory: Negative for shortness of breath, cough, wheezing, and pleuritic chest pain, Back: Negative for injury and pain, : Negative for injury, bleeding, discharge, and swelling, MS/Extremity: Negative for injury and deformity, Skin: Negative for injury, rash, and discoloration, Neuro: Negative for headache, weakness, numbness, tingling, and seizure activity. Psych: Negative for depression, anxiety, suicide ideation, homicidal ideation, and hallucinations, Allergy/Immunology: Negative for hives, rash, and allergies, Endocrine: Negative for neck swelling, polydipsia, polyuria, polyphagia, and marked weight changes, Hematologic/Lymphatic: Negative for swollen nodes, abnormal bleeding, and unusual bruising. 07:45 Abdomen/GI: Positive for vomiting, diarrhea, Negative for constipation, abdominal cramps, abdominal distension, anorexia, black/tarry stool, rectal pain, rectal bleeding. Exam: 07:45 Constitutional: This is a well developed, well nourished patient who is awake, alert, kdr and in no acute distress. Head/Face: Normocephalic, atraumatic. Eyes: Pupils equal round and reactive to light, extra-ocular motions intact. Lids and lashes normal. Conjunctiva and sclera are non-icteric and not injected. Cornea within normal limits. Periorbital areas with no swelling, redness, or edema. Neck: Trachea midline, no thyromegaly or masses palpated, and no cervical lymphadenopathy. Supple, full range of motion without nuchal rigidity, or vertebral point tenderness. No Meningismus. Chest/axilla: Normal chest wall appearance and motion. Nontender with no deformity. No lesions are appreciated. Cardiovascular: Regular rate and rhythm with a normal S1 and S2. No gallops, murmurs, or rubs. Normal PMI, no JVD. No pulse deficits. Respiratory: Lungs have equal breath sounds bilaterally, clear to auscultation and percussion. No rales, rhonchi or wheezes noted. No increased work of breathing, no retractions or nasal flaring. Abdomen/GI: Soft, non-tender, with normal bowel sounds. No distension or tympany. No guarding or rebound. No evidence of tenderness throughout. Back: No spinal tenderness. No costovertebral tenderness. Full range of motion. Skin: Warm, dry with normal turgor. Normal color with no rashes, no lesions, and no evidence of cellulitis. MS/ Extremity: Pulses equal, no cyanosis. Neurovascular intact. Full, normal range of motion. Neuro: Awake and alert, GCS 15, oriented to person, place, time, and situation. Cranial nerves II-XII grossly intact. Motor strength 5/5 in all extremities. Sensory grossly intact. Cerebellar exam normal. Normal gait. Psych: Awake, alert, with orientation to person, place and time. Behavior, mood, and affect are within normal limits. Vital Signs: 03:10 BP 142 / 91; Pulse 53; Resp 18; Temp 98.4(O); Pulse Ox 95% on R/A; Weight 99.79 kg; mm9 Height 5 ft. 8 in. (172.72 cm); 03:34 BP 102 / 87; Pulse 54; Resp 16; Pulse Ox 95% on R/A; kd3 06:31 BP 125 / 84; Pulse 62; Resp 17; Pulse Ox 98% on R/A; kd3 03:10 Body Mass Index 33.45 (99.79 kg, 172.72 cm) mm9 MDM: 06:12 Patient medically screened. kdr 07:45 Data reviewed: vital signs, nurses notes, lab test result(s), radiologic studies. kdr 01/25 03:02 Order name: COVID-19 SARS RT PCR (Document "Date of Onset" if Symptomatic) kdr 01/25 03:02 Order name: Flu kdr 01/25 03:59 Order name: SARS-COV-2 RT PCR; Complete Time: 04:31 EDMS 01/25 04:14 Order name: Influenza Screen (A ; Complete Time: 04:31 EDMS Administered Medications: No medications were administered Disposition Summary: 01/25/22 06:12 Discharge Ordered Location: Home kdr Problem: new kdr Symptoms: are unchanged kdr Condition: Stable kdr Diagnosis - SARS-associated coronavirus as the cause of diseases classified elsewhere kdr - Viral infection, unspecified kdr Followup: kdr - With: Private Physician - When: 2 - 3 days - Reason: If symptoms return, Further diagnostic work-up, Recheck today's complaints, Continuance of care, Re-evaluation by your physician Discharge Instructions: - Discharge Summary Sheet kdr - Viral Respiratory Infection, [id number] kdr - COVID-19 kdr - Viral Illness, Adult kdr - COVID-19: Quarantine vs. Isolation - [facility] kdr - Prevent the Spread of COVID-19 if You Are Sick - [facility] kdr Forms: - Medication Reconciliation Form kdr - Thank You Letter kdr Signatures: Dispatcher [employer] EDMS Sawyer Cam MD MD kdr Teena Chang, RN RN kd3
[2022-01-25 06:45] VITALS: TEMP 98.4
[2022-01-25 06:47] VITALS: BP 125/84; O2SAT 98
== END 2022-01-25 06:39 | disposition home or self-care (01) ==
LOC: ER 02:52
DX: U07.1 COVID-19 (principal); I10 Essential (primary) hypertension
CPT/HCPCS: 87804 ×2; 99283; U0003